=== PATIENT | male | born 1935 | race Caucasian/White ===

== ENCOUNTER 2018-11-19 11:22 | Emergency (ER) | payer MEDICARE, SELFPAY ==
[2018-11-19 11:23] VITALS: BP 129/67; PULSE 58; RESP 16; TEMP 36.6; O2SAT 97; BMI 27.1
--- NOTE | 2018-11-19 11:58 | EKG12_ITS ---
Test Reason : ABDOMINAL PAIN Blood Pressure : / mmHG Vent. Rate : 054 BPM Atrial Rate : 054 BPM P-R Int : 174 ms QRS Dur : 084 ms QT Int : 436 ms P-R-T Axes : -40 -02 047 degrees QTc Int : 413 ms Unusual P axis, possible ectopic atrial bradycardia Abnormal ECG Confirmed by FAITH BRICENO, HUDSON ([id number]), editor farm journal HERBERT HENSON ([id number]) on 11/23/2018 9:15:58 AM Referred By: RAMBO Confirmed By:HUDSON CUEVAS MD
[2018-11-19 12:53] VITALS: RESP 17; TEMP 36.9
[2018-11-19 13:10] LABS: Absolute Lymphocyte Count 1.62 X10^3/ul (0.83-4.51); Absolute Neutrophil Count 3.8 X10^3/uL (2.0-7.7); Basophil# 0.02 X10^3/uL; Basophil% 0.3 % (0-1); Eosinophil# 0.31 X10^3/uL; Eosinophils% 4.8 % (0-5); Hemoglobin 14.3 g/dl (13.0-16.5); Lymphocyte # 1.62 X10^3/ul (4.0); Lymphocyte % 25.2 % (19-41); Mean Corp Hgb Conc 33.3 g/gl (32-36); Mean Corpuscular Hgb 32.8 pg (27.0-32.0); Mean Corpuscular Volume 98.6 fL (80-94); Mean Platelet Vol. 10.4 fl (6.2-12.0); Monocyte# 0.71 X10^3/uL; Neutrophil # 3.76 X10^3/uL (2.7-7.7); Neutrophil % 58.4 % (47-70); Platelet Count 160 K/mm3 (150-450); RBC Distribution Width CV 15.4 % (11.6-14.6); RBC Distribution Width SD 54.4 fl (35.1-43.9); Red Blood Count 4.36 M/mm3 (4.6-6.2); White Blood Count 6.4 K/mm3 (4.4-11.0)
[2018-11-19 13:17] LABS: POSITIVE COUNT NO; POSITIVE DIFFERENTIAL NO; POSITIVE MORPHOLOGY NO
[2018-11-19 13:29] LABS: ALB/GLOB Ratio 1.2 RATIO (0.9-2.4); AST(SGOT) 19 U/L (15-37); Alanine Aminotransfer ALT/SGPT 23 U/L (16-61); Albumin, Serum 3.6 g/dL (3.2-5.0); Alkaline Phosphatase 91 U/L (45-117); Anion Gap 6 (5-15); BUN 29 mg/dL (7-18); BUN/Creat Ratio 20.9 RATIO (10-20); Calcium,Total 8.5 mg/dL (8.5-10.1); Chloride 111 mmol/L (98-107); Creatinine, Serum 1.39 mg/dL (0.70-1.30); EST Glomerular Filtration Rate 52 mL/min (>60); Est Glom Filt Rate - Afr Amer 63 mL/min (>60); Estimated Creatinine Clearance 39.64 ml/min; Globulin 3.1 g/dL (2.2-4.2); Glucose 94 mg/dL (74-106); Lipase 164 U/L (73-393); Potassium 4.5 mmol/L (3.5-5.1); Protein, Total 6.7 g/dL (6.4-8.2); Sodium Level 141 mmol/L (136-145)
--- NOTE | 2018-11-19 14:05 | ED.VIS.GEN ---
History of Present Illness Chief Complaint: Abd Pain Detail of Chief Complaint: Left upper quadrant Informant: Patient Onset: Yesterday Context: Sudden Onset Timing: Continuous Quality: Left upper quadrant pain with jags. Location: Left upper quadrant Current Severity: Mild Maximum Severity: Moderate Worsened by: Nothing Relieved by: Nothing Associated Symptoms: Nothing Narrative: Patient is an elderly male with history of diverticulitis is concerned this left upper quadrant pain represents diverticulitis. He denies food intolerance. He denies chest pain, dyspnea on exertion, diaphoresis, back pain or flank pain. He denies dysuria, frequency, urgency or hematuria. He reports never having pain like this or in this location. He denies constipation, black or maroon stool. Denies blood or mucus in the stool. He states his bowel movements have been normal for him. Prior similar symptoms: No Recent Illness/Hospitalization: No - Past Medical History (1) Diverticulitis large intestine Status: Resolved (2) Coronary artery disease Status: Chronic (3) Hyperlipidemia Status: Chronic Past Medical History - Allergies and Home Meds Allergies/Adverse Reactions: Allergies prednisone Allergy (Verified 11/19/18 11:25) Rash Primary Care Physician: Jack Schaffer MD [Primary Care Provider] - Prior records reviewed: Yes Surgical History: no surgical history, - - Stent placement Lives: Alone Smoking Status: Former smoker Alcohol: None - Family History Maternal Family History: Reports: No pertinent history Review of Systems General: Denies: Chills, Fever, Malaise, Sweats, Weight loss Eyes: Denies: Visual changes - bilaterally, Blurred Vision - bilaterally ENT: Denies: Bilateral ear pain, Rhinorrhea, Sore throat Cardiovascular: Denies: Chest pain, Palpitations, Heart racing Respiratory: Denies: Dyspnea, Cough, Sputum, Dyspnea on exertion, Orthopnea, Paroxysmal nocturnal dyspnea Gastrointestinal: Reports: Abdominal pain. Denies: Nausea, Vomiting, Diarrhea, Constipation, Melena, Hematochezia Genitourinary: Denies: Dysuria, Hematuria, Frequency Musculoskeletal: Denies: Myalgias, Arthralgias, Neck pain, Back pain, Extremity Pain Skin: Denies: Rash, Wounds Neurological: Denies: Headache, Weakness, Numbness Hematologic: Denies: Easy bruising Allergy: Denies: Uticaria Physical Exam Vital Signs/Narrative: Vital Signs Temp Pulse Resp BP Pulse Ox 11/19/18 12:53 98.4 F 17 11/19/18 11:23 98 F 58 L 16 129/67 H 97 Inital Vital Signs reviewed: Yes General: Well nourished, Well developed, No Acute Distress Head: Normocephalic, Atraumatic Eyes: Perrl, EOMI, Pale conjunctiva, Scleral icterus ENT: Moist mucous membranes - Is, No rhinorrhea, TM's clear Neck: Supple, Nontender, No lymphadenopathy, No JVD Cardiovascular: Regular rate, Regular rhythm, No murmurs, Normal S1, Normal S2 Respiratory: No distress - Is, CTA bilaterally, Chest nontender Abdomen: Soft, Nontender, Nondistended, Normal bowel sounds, No masses. Negative for: Hepatomegaly, Splenomegaly Rectal: Deferred Back: Nontender, Normal Inspection. Negative for: CVA tenderness Extremities: Nontender, No edema. Negative for: Calf Tenderness Skin: Normal color, No rash. Negative for: Cyanosis, Jaundice Neurological: Alert, Oriented x3, Cranial nerves II-XII grossly intact, Normal Strength, Normal Sensation, Normal Gait Psychological: Normal affect, Normal Mood Diagnostic/Tx/Re-eval Laboratory Results 11/19/18 11/19/18 12:58 12:58 WBC 6.4 RBC 4.36 L Hgb 14.3 Hct 43.0 MCV 98.6 H MCH 32.8 H MCHC 33.3 RDW 15.4 H RDW Differential 54.4 H Plt Count 160 MPV 10.4 Immature Gran % (Auto) 0.300 Neut % (Auto) 58.4 Lymph % (Auto) 25.2 Steele % (Auto) 11.0 H Eos % (Auto) 4.8 Baso % (Auto) 0.3 Absolute Neuts (auto) 3.8 Absolute Lymphs (auto) 1.62 Total Counted Not Reportable Sodium 141 Potassium 4.5 Chloride 111 H Carbon Dioxide 24.0 Anion Gap 6 BUN 29 H Creatinine 1.39 H Estim Creat Clear Calc 39.64 Est GFR (MDRD) Af Amer 63 Est GFR (MDRD) Non-Af 52 L BUN/Creatinine Ratio 20.9 H Glucose 94 Calcium 8.5 Total Bilirubin 0.40 AST 19 ALT 23 Alkaline Phosphatase 91 Troponin I < 0.015 Total Protein 6.7 Albumin 3.6 Globulin 3.1 Albumin/Globulin Ratio 1.2 Lipase 164 - Rhythm Strip Rhythm Strip: Sinus Rhythm Rate: 58 Ectopy: None - EKG Initial EKG Interpretation: Sinus Bradycardia - Ventricular rate is 54. AL interval, Q latter day, QT interval and axis are normal. There are no ischemic changes noted. - Medical Decision Making To evaluate patient's left upper quadrant pain hepatic lipase and CBC were obtained to evaluate for pancreatitis, and cardiac etiology. Chest x-ray was not obtained since he has no respiratory symptoms and auscultation is normal. Since pain is not reproducible or worsen with palpation/percussion or movement imaging was not obtained. With normal workup including EKG, troponin, CBC, lipase and hepatic plan is to discharge to home. Patient was informed the etiology of his abdominal pain is unknown. ED Disposition - Plan for ED Patient: Disposition: Home or Assisted Living Diagnosis: Acute LUQ pain, History of diverticulitis of colon, History of coronary artery disease Instructions: ED Abdominal Pain Unkn Cause Male Referrals: Jack Schaffer MD [Primary Care Provider] - 3-5 Days if not improving
[2018-11-19 14:30] VITALS: PULSE 55; RESP 17; TEMP 36.7; O2SAT 99
== END 2018-11-19 14:32 | disposition home or self-care (01) ==
PROVIDERS: Emergency Provider Emergency Medicine; Family Provider Family Medicine; PCP Family Medicine
DX: R10.12 Left upper quadrant pain (principal); K57.32 Diverticulitis of large intestine without perforation or abscess without bleeding; I25.10 Atherosclerotic heart disease of native coronary artery without angina pectoris; E78.5 Hyperlipidemia, unspecified; Z87.891 Personal history of nicotine dependence; Z79.82 Long term (current) use of aspirin; Z79.899 Other long term (current) drug therapy
CPT/HCPCS: 80053; 83690; 84484; 85025; 93005; 99283; A4216

== ENCOUNTER → 2020-02-10 | Outpatient (CLI) | payer MEDICARE, SELFPAY ==
[2020-02-10 10:54] LABS: Amylase 49 U/L (25-115); Lipase 132 U/L (73-393)
== END | disposition home or self-care (01) ==
LOC: LABSPEC 10:27
PROVIDERS: PCP Family Medicine; Referring Provider Family Medicine; Visit Provider Family Medicine
DX: R10.12 Left upper quadrant pain (principal); R10.13 Epigastric pain
CPT/HCPCS: 82150; 83690

== ENCOUNTER 2020-04-13 05:33 | Inpatient (IN) | payer MEDICARE, SELFPAY ==
[2020-04-13] VITALS (15 sets, daily range): BP systolic 117–143; BP diastolic 66–81; PULSE 71–161; RESP 16–28; TEMP 36.3–37.1; O2SAT 96–100; BMI 21.4; BMI 21.1
--- NOTE | 2020-04-13 05:37 | ED.RN ---
CALLED FOR EKG PER RN REQUEST, PULLED OLD EKGS FOR
[2020-04-13] MEDS: dilTIAZem 25 MG/5 ML Vial 20 MG IV BOLUS (05:51)
--- NOTE | 2020-04-13 05:51 | EKG12_ITS ---
Test Reason : SOB Blood Pressure : / mmHG Vent. Rate : 146 BPM Atrial Rate : 337 BPM P-R Int : 000 ms QRS Dur : 082 ms QT Int : 314 ms P-R-T Axes : 000 -15 069 degrees QTc Int : 489 ms Atrial flutter with variable A-V block ST depression, consider subendocardial injury Abnormal ECG Confirmed by FAITH BRICENO, HUDSON ([id number]), editor producer DOMONIQUE BASSETT ([id number]) on 04/17/2020 9:25:11 AM Referred By: TAWANDA Confirmed By:HUDSON CUEVAS MD
[2020-04-13] MEDS: 0.9% Normal Saline 1,000 ML 150 ML IV (05:54)
--- NOTE | 2020-04-13 05:55 | RAD_ITS ---
HISTORY: pt c/o sob,nausea. hx of lung cancer, weakness ADDITIONAL HISTORY: None provided. EXAMINATION/TECHNIQUE: XR Chest 1 View AP/PA Number of images including paperwork: 1 COMPARISON: 07/27/2014 FINDINGS: LUNGS AND PLEURA: Left basilar opacity with some volume loss. Left pleural thickening versus small loculated pleural effusion. CARDIAC SILHOUETTE: Mildly enlarged. MEDIASTINUM AND LAURA: Aortic calcification and tortuosity. UPPER ABDOMEN: Unremarkable. SKELETON AND SOFT TISSUES: Deformity and the left posterior seventh rib consistent with previous surgery. T11 compression deformity appears similar. Degenerative changes. OTHER DEVICES AND HARDWARE: None. RAD/Chest 1 View (Portable) IMPRESSION: Left basilar opacity, possibly pneumonia, aspiration pneumonia and/or atelectasis. Correlation with clinical findings and follow-up recommended. Left pleural fluid versus pleural thickening. at 0636 Reported and signed by: Vicki Edouard MD Electronically Signed: Vicki Edouard MD at 6:36 EDT Tel , Service support ,
[2020-04-13] MEDS: Ondansetron 4 MG/2 ML Vial IV (06:00)
[2020-04-13 06:07] LABS: Absolute Lymphocyte Count 0.84 X10^3/uL (0.83-4.51); Absolute Neutrophil Count 0.5 X10^3/uL (2.0-7.7); Eosinophil# 0.07 X10^3/uL; Eosinophils% 4.7 % (0-5); Hematocrit 33.3 % (40-54); Hemoglobin 10.7 g/dL (13.0-16.5); Lymphocyte # 0.84 X10^3/ul (4.0); Lymphocyte % 56.8 % (19-41); Mean Corp Hgb Conc 32.1 g/dL (32-36); Mean Corpuscular Hgb 27.2 pg (27.0-32.0); Mean Corpuscular Volume 84.7 fL (80-94); Mean Platelet Vol. 9.8 fl (6.2-12.0); Monocyte# 0.04 X10^3/uL; Monocyte% 2.7 % (0-10); NRBC Flagged by Analyzer 0 % (0-5); Neutrophil # 0.51 X10^3/uL (2.7-7.7); Neutrophil % 34.4 % (47-70); POSITIVE COUNT YES; POSITIVE DIFFERENTIAL YES; POSITIVE MORPHOLOGY YES; Platelet Count 100 K/mm3 (150-450); RBC Distribution Width CV 17.8 % (11.6-14.6); RBC Distribution Width SD 55.1 fl (35.1-43.9); Red Blood Count 3.93 M/mm3 (4.6-6.2)
[2020-04-13 06:21] LABS: Differential Indicated SCAN CRITERIA MET
[2020-04-13 06:22] LABS: White Blood Count 1.5 K/mm3 (4.4-11.0)
[2020-04-13 06:24] LABS: Anion Gap 8 (5-15); BUN 27 mg/dL (7-18); BUN/Creat Ratio 23.9 RATIO (10-20); Calcium,Total 8.9 mg/dL (8.5-10.1); Chloride 103 mmol/L (98-107); Creatinine, Serum 1.13 mg/dL (0.70-1.30); EST Glomerular Filtration Rate 66 mL/min (>60); Est Glom Filt Rate - Afr Amer 80 mL/min (>60); Estimated Creatinine Clearance 46.24 ml/min; Glucose 126 mg/dL (74-106); Potassium 3.1 mmol/L (3.5-5.1); Sodium Level 135 mmol/L (136-145)
[2020-04-13 06:40] LABS: D-Dimer Quantitative (DVT/PE) 7.92 FEU/ug/m (0.27-0.49)
--- NOTE | 2020-04-13 06:42 | CT_ITS ---
STUDY: CTA CHEST REASON FOR EXAM: Male, 84 years old. SOB, WEAKNESS RADIATION DOSAGE (If Supplied By Facility): CTDIvol = ( 12.50 ) mGy, DLP = ( 360.73 ) mGycm TECHNIQUE: The examination was performed with the intravenous administration of 100 C C ISOVUE 370. Post-processing of the angiographic images was performed, with multiplanar reformation and 3D reconstruction. Individualized dose optimization techniques were used for this CT. COMPARISON: Comparison is made with prior examination dated 07/27/2014. FINDINGS: Multiple intraluminal filling defects are seen in branches of the right lower lobe pulmonary artery as well as the right intermediate stem pulmonary artery. There is atherosclerotic calcification of the aortic arch with tortuosity. There is no demonstrated aortic dissection. There are calcifications of the coronary arteries. There are visualized mediastinal lymph nodes, which are within normal size limits, and with normal morphology. Normal hilar regions. Normal visualized trachea and bronchi. There is volume loss in the left hemithorax with a small left pleural effusion and irregular pleural thickening involving the lateral and medial aspects of the left pleural space. There is also evidence of bronchiectasis and infiltration/consolidation in the left lower lobe. Normal chest wall structures. There are degenerative changes of thoracic spine. Normal visualized upper abdomen. CT/CTA Chest W/WO Contrast IMPRESSION: Pulmonary emboli seen in the right interlobar pulmonary artery as well as in the right lower lobe pulmonary arterial branches. Small left pleural effusion with diffuse left pleural thickening and volume loss in the left hemithorax. Electronically Signed: Jabari Page, at 8:08 EDT , Service support ,
[2020-04-13 06:51] LABS: Differential Comment SCANNED
--- NOTE | 2020-04-13 06:56 | ED.DCSUM_ITS ---
- ER Visit Summary Date of Service: 04/13/20 Chief Complaint: [Shortness of breath] History of Present Illness: The patient is a 84 M [presents the emergency department complaint shortness of breath started around 5 AM. Patient complains of nausea for days ever since his chemotherapy 8 days ago. Patient being treated for lung cancer with Dr. Adam Cote. Patient also states that in January he had his left lung scrubbed by Dr. Colon. Patient does complain of some chest discomfort with deep breath. Patient states that he has been getting some IV fluids as an outpatient for dehydration. Patient has history of coronary artery disease, high cholesterol, lung cancer, and history of diverticulitis. Patient has cardiac stents. He denies any fever or cough. He denies any exposures to patients with COVID-19.] Physical Examination: [HEENT-PERRLA, EOMI. Cranial nerves II through XII grossly intact. TMs clear. Mucous membranes moist. No adenopathy. Cardiovascular-irregularly irregular and tachycardic with heart rates in the 140s. No murmurs auscultated. Lungs-diminished breath sounds in the left lower lobe with rhonchi and few rales noted. Mild tachypnea. No accessory muscle use or retractions. Abdomen-normoactive bowel sounds, soft, nontender, no rebound or rigidity, no peritoneal signs. Extremities-intact ?4, normal range of motion, normal pulses, atraumatic] Test Results: EKG obtained on arrival showed atrial fibrillation with rapid v entricular response and nonspecific ST changes. When compared with prior EKG from November 2018 these are new findings. CBC with differential obtained showed a white count of 1.5, hemoglobin 10.7, hematocrit 33, platelets 100. Chemistries showed a sodium 135, potassium 3.1, chloride 103, CO2 24, glucose 126, BUN 27 and creatinine 1.13. Troponin less than 0.015. D-dimer was elevated at over 7 [. CTA of the chest ordered and pending] Emergency Department Course and Treatment: [ Established. Patient was given Cardizem 20 mg IV bolus. Patient was given another bolus of 20 mg of Cardizem and started on a Cardizem drip. Patient was given normal saline.] Before the Cardizem drip was started patient converted to a sinus rhythm. At this point I do not feel the fluid on the left side is related to infectious etiology as he has had no cough or fever. Treatment Plan: [Patient will require admission for new onset A. fib RVR] Disposition: [Admit] Impression: [A. fib RVR-new onset Left pleural effusion Dyspnea Pancytopenia History of lung cancer] This note was generated with Kalion dictation software. It may contain incorrect words, spelling, and punctuation that were not noted in review of the chart prior to signing ED Disposition - Plan for ED Patient: Referrals: Jack Schaffer MD [Primary Care Provider] -
--- NOTE | 2020-04-13 07:16 | HP.PCM_ITS ---
Problem List (1) Cancer of left lung Status: Acute (2) Left pleural effusion Status: Acute (3) Atrial fibrillation with RVR Status: Acute (4) Acute respiratory insufficiency Status: Acute (5) Diverticulitis large intestine Status: Resolved (6) Vertigo Status: Chronic (7) Chest pain Status: Inactive (8) Hyperlipidemia Status: Chronic (9) Coronary artery disease Status: Chronic History of Present Illness Date of Admission: 04/13/20 Chief Complaint: Shortness of breath acute on chronic The patient is a 84 year old M with multiple comorbidities including recent diagnosis of left lung cancer after VATS pleural biopsy, adenocarcinoma in [facility] by Dr. Nelson in January 2020 came to ED with acute on chronic shortness of breath at 5 AM today. Patient is chronically short of breath on exertion and generalized weakness for since January 2020 but got worse in the last 1 week after chemotherapy. He had first chemo a week ago by oncologist Dr. Cote. He has nausea and dehydration and was hydrated 2 days ago. He denies fever or chills, cough or chest pain/pressure. In ED, triage vitals shows heart rate 161/min, respiratory rate 28 pulse ox 98% on room air and BP 143/81. He was found in A. fib with RVR which was converted with 20 mg IV Cardizem. Chest x-ray done in ER shows left basilar opacity. CTPA was done which shows left a small effusion with atelectasis and consolidation with air bronchogram. Left hemithorax scarring with volume loss consistent with left thoracotomy. Patient is admitted in PCU for further management Past Medical History Past Medical History (Chronic Problems): Chronic Problems Vertigo (Chronic) Hyperlipidemia (Chronic) Coronary artery disease (Chronic) Allergies prednisone Allergy (Verified 04/13/20 05:39) Rash Home Medications: Ambulatory Orders Medication Instructions Recorded Metoprolol Tartrate [Lopressor 50 mg PO BID 07/27/14 (beta latrell)] Simvastatin [Zocor] 40 mg PO QHS 07/27/14 Aspirin E.C. [Ecotrin] 81 mg PO DAILY@0800 #30 tablet 09/11/15 Cholecalciferol (Vitamin D3) 2,000 unit PO DAILY 09/11/15 [D3-2000] Gluc Brady/Chondro Brady A/Vit C/Mn 1 each PO DAILY 01/31/16 [Glucosamine 1,500 Complex Cp] Pioglitazone [Actos] 30 mg PO DAILY 01/31/16 Surgical History: no surgical history, - - Stent placement Smoking Status: Former smoker - *Family History Maternal History Items: No pertinent history Review of Systems Constitutional: Reports: Malaise, Weakness, Weight Change - Loss of weight about 40 pounds in last 16 months, more severe in the last 2 months, Fatigue. Denies: Chills, Fever HEENT: Reports: Difficulty Hearing. Denies: Head Aches, Sinus Congestion, Sinus Drainage Cardiovascular: Denies: Chest Pain, Chest Pressure, Chest Tightness, Edema, Palpitations Respiratory: Denies: Cough, Shortness of breath at rest, Sputum production Gastrointestinal: Reports: Nausea, Vomiting. Denies: Abdominal Pain, Constipation, Diarrhea, Hematemesis, Hematochezia, Melena Genitourinary: Denies: Dysuria, Frequency, Hesitancy, Retention Musculoskeletal: Reports: Joint Pain. Denies: Joint Tenderness Skin: Denies: Rash, Wounds Neurological: Reports: Balance problems. Denies: Focal weakness, Numbness, Tingling Psychiatric: Denies: Anxiety, Depression, Homicidal Ideations, Suicidal Ideations Hematologic/ Lymphatic: Denies: Easy Bruising, Easy Bleeding VTE Information - Inpt Only VTE Present on Admission: No VTE Mechan Device Prophylaxis: SCD's VTE Pharm Prophylaxis ordered?: No Reason prophylaxis not ordered:: Medical Contraindication - Pancytopenia Patient Problems: Active and Suspected Problems Cancer of left lung (Acute) Left pleural effusion (Acute) Atrial fibrillation with RVR (Acute) Acute respiratory insufficiency (Acute) - Physical Exam Vitals/I&O's: Vital Signs Temp Pulse Resp BP Pulse Ox 97.8 F 109 H 28 H 143/81 H 98 04/13/20 05:34 04/13/20 05:34 04/13/20 05:34 04/13/20 05:34 04/13/20 05:34 Oxygen Delivery Method Room Air Weight: 145 lb 8.081 oz Body Mass Index (BMI) 21.4 Finger Stick Blood Glucose 121 General: Alert, Oriented x3, Cooperative HEENT: Atraumatic, PERRLA, EOMI, Normocephalic Oral: No Gingival or Mucosal Lesions/ Ulcerations, Dry Mucosa Neck: Supple, No JVD, Negative Carotid Bruits Lungs: No rhonchi, No wheeze, No rales, Diminished - Air entry severely dimini shed on left lung, more posterior half, Short of Breath, - - Surgical scar present over left posterior lateral region. Asymmetric, decreased expansion of left hemithorax with scarring.. Cardiovascular: Regular rate, Regular Rhythm, Normal S1, Normal S2, Murmur - Systolic murmur present over left lower sternal border and aortic region, - - Converted to sinus rhythm Abdomen: Bowel Sounds Present, Soft, Non Tender, Non-Distended Extremities: No edema, Capillary Refill Less than 3 Seconds, Edema Skin: No rashes, No breakdown Musculoskeletal: No Tenderness to Palpation of Joints or Extremities, Arthritic Changes, Muscle Wasting Neurological: Cranial nerves II-XII grossly intact, Deep Tendon Reflexes 2+/4 and Symmetrical, Neuro grossly intact Psych/Mental Status: Normal Affect, Appropriate Laboratory Results 04/13/20 05:45: WBC 1.5 L, RBC 3.93 L, Hgb 10.7 L, Hct 33.3 L, MCV 84.7, MCH 27.2, MCHC 32.1, RDW Std Deviation 55.1 H, RDW Coeff of Sinan 17.8 H, Plt Count 100 L, MPV 9.8, Immature Gran % (Auto) 1.400 H, Neut % (Auto) 34.4 L, Lymph % (Auto) 56.8 H, Durham % (Auto) 2.7, Eos % (Auto) 4.7, Baso % (Auto) 0.0, Absolute Neuts (auto) 0.5 L, Absolute Lymphs (auto) 0.84, Nucleated RBC % 0, Differential Comment SCANNED 04/13/20 05:45: Sodium 135 L, Potassium 3.1 L, Chloride 103, Carbon Dioxide 24.0, Anion Gap 8, BUN 27 H, Creatinine 1.13, Estim Creat Clear Calc 46.24, Est GFR (MDRD) Af Amer 80, Est GFR (MDRD) Non-Af 66, BUN/Creatinine Ratio 23.9 H, Glucose 126 H, Calcium 8.9, Troponin I < 0.015 04/13/20 05:45: B-Natriuretic Peptide Pending 04/13/20 05:45: D-Dimer Quant (PE/DVT) 7.92 H* 04/13/20 06:05: COVID-19 (JOSÉ) Pending Current Medications Sodium Chloride () 1,000 mls @ 150 mls/hr IV .Q6H40M [facility] Last Admin: 04/13/20 05:54 Dose: 150 mls/hr Documented by: Diltiazem HCl 125 mg/ Dextrose 125 mls @ 5 mls/hr IV .Q25H [facility]; Protocol Assessment/Plan All Active Problems Diverticulitis large intestine (Resolved) Cancer of left lung (Acute) Left pleural effusion (Acute) Atrial fibrillation with RVR (Acute) Acute respiratory insufficiency (Acute) The patient is a 84 year old M with multiple comorbidities including recent diagnosis of left lung cancer after VATS/thoracotomy pleural biopsy, adenocarcinoma in [facility] by Dr. Nelson in January 2020 came to ED with acute on chronic shortness of breath and found to be in A. fib with RVR. Overall clinical assessment was consistent with acute respiratory insufficiency secondary to left lower atelectasis, effusion and possible pneumonia along with A. fib with RVR 1. Acute respiratory insufficiency secondary to left lower opacity probably secondary to effusion, atelectasis and pneumonia: Patient is being admitted in PCU. COVID PCR is negative. Pneumonia work-up including blood cultures x2, sputum culture, respiratory panel and MRSA nasal screen. Start empirically on IV antibiotic Zosyn as there is risk healthcare associated pneumonia with recent chemotherapy and pancytopenia. Pulmonary consult. Discussed with staff nurse anesthetist. Chest x-ray and CTPA independently reviewed shows left a small pleural effusion with atelectasis and consolidation with air bronchograms. Left lung volume loss with scarring. Lactic acid, CRP and LFT ordered. 2. Left lung cancer after VATS pleural biopsy, thoracotomy: Discussed with Dr. Adam Cote. Patient had VATS pleural biopsy came out to be adenocarcinoma and [facility] by Dr. Nelson. Details not available. Oncology consult. Try to get medical record from [facility]. 3. Pancytopenia: WBC count 1.5 thousand, ANC 500, H&H 10.7/33 and platelet count 100,000. Antiplatelet/anticoagulant contraindicated. D-dimer high 7.92. Neupogen ordered. Monitor CBC daily. 4. Coronary artery disease status post stents A. fib with RVR: Converted to normal sinus rhythm after 20 mg IV Cardizem. Serial troponin enzymes. 2D echo ordered. Patient has history of coronary artery disease and 2 stents in early 1999. Denies any recent SD or chest pain at rest or exertion. 5. Other comorbidities include dyslipidemia, diverticulitis of large intestine, chronic vertigo: Home medication reconciliation done. Living will/advanced directive/end of life care: Patient does have living will and advanced directive. Her elder daughter Anna is power of employee benefits attorney for health. I discussed with younger sister Anna lacy. After discussion of procedures involved with full code, DNR CC arrest and DNR CC, the patient and her daughter opted for full code in case of terminal/emergency condition or cardiac arrest. Patient does want artificial life support including intubation, tube feed, ventilator and/chest compression, central venous catheter, vasopressor and DC shock if needed for short length of time Full code. Total time spent in [id number] encounter in discussion of advanced directive 16 minutes Inpatient E&M: 44269 Init Hosp L3 Procedures: 60508 Advncd Care Plan 30 Min
--- NOTE | 2020-04-13 07:45 | ED.RN ---
PT CONVERTED TO SINUS RHYTHM, CARDIZEM HELD PER REQUEST FROM DR. RUTHERFORD.
--- NOTE | 2020-04-13 07:51 | ED.RN ---
[facility]ARM[facility] TO SEND LIQUID POTASSIUM TO THE FLOOR.
--- NOTE | 2020-04-13 08:40 | ECHOD_ITS ---
Reason For Study: SOB Procedure This was a 2D Doppler, Color Flow transthoracic echocardiogram. The study was technically difficult. Exam performed portable in patient room. Left Ventricle Normal LV size. The estimated ejection fraction is 70 %. No evidence for diastolic dysfunction. No regional wall motion abnormalities noted. Right Ventricle Normal RV size. Normal systolic function. Atria Normal left atrium. Normal right atrium. No doppler evidence for ASD. Mitral Valve Bileaflet diffuse mitral valve thickening. There is no mitral valve stenosis. No mitral valve insufficiency. Tricuspid Valve There is no tricuspid stenosis. Trivial tricuspid valve insufficiency. Pulmonary artery systolic pressure is 55 mmHg. Aortic Valve Trisinus/trileaflet aortic valve. Aortic sclerosis, no stenosis. There is no aortic stenosis. No aortic valve insufficiency. Pulmonic Valve There is no pulmonic valvular stenosis. No pulmonic valve insufficiency. Great Vessels Normal aortic root. Pericardium/Pleural No pericardial effusion. Medication Definity deferred due to increased PAP. MMode/2D Measurements & Calculations LVIDd: 3.5 cm IVSd: 1.1 cm LVOT diam: 2.0 cm LVIDs: 2.2 cm LVPWd: 1.1 cm RVDd: 3.3 cm FS: 37.0 % LVOT area: 3.3 cm2 Ao root diam: 3.2 cm LAV(MOD-bp): 46.3 ml LA A4 area: 18.4 cm2 LAV(MOD-bp) Indexed: 25.9 ml/m2 LAV(MOD-sp2): 40.6 ml LAV(MOD-sp4): 52.7 ml LA dimension(2D): 2.9 cm RA A4 area: 15.3 cm2 Time Measurements MV dec time: 0.33 sec Doppler Measurements & Calculations MV E max thaddeus: 63.9 cm/sec Lat Peak E' Thaddeus: 5.4 cm/sec Med Peak E' Thaddeus: 4.1 cm/sec MV A max thaddeus: 85.9 cm/sec E/E' lat: 11.9 E/E' med: 15.6 MV E/A: 0.74 Ao V2 max: 239.7 cm/sec LV V1 max: 148.5 cm/sec SV(LVOT): 100.1 ml Ao max P.0 mmHg LV V1 max P.8 mmHg Ao V2 mean: 164.7 cm/sec LV V1 mean P.3 mmHg Ao mean P.1 mmHg LV V1 mean: 96.4 cm/sec Ao V2 VTI: 39.4 cm LV V1 VTI: 30.4 cm CIELO(I,D): 2.5 cm2 CIELO(V,D): 2.0 cm2 PA V2 max: 162.3 cm/sec TR max thaddeus: 345.5 cm/sec TR max P.7 mmHg Interpretation Summary No evidence for diastolic dysfunction. The estimated ejection fraction is 70 %. Pulmonary artery systolic pressure is 55 mmHg. Aortic sclerosis, no stenosis. Ordering Physician: Ryan Laurent Referring Physician: SHWETA SEARS Performed By: Stephanie Sam RDCS
--- NOTE | 2020-04-13 08:47 | PCM.CONS.PUL ---
Reason for Consult Date of Consultation: 04/13/20 Reason for Consultation: Respiratory distress, left pleural effusion, lung cancer History of Present Illness: The patient is an 84-year-old male, with a history as outlined below, who presented to the emergency department on April 13 with complaints of shortness of breath. The patient has a medical history significant for hypertension, AAA, stage III chronic kidney disease and peripheral vascular disease. In September [address] the patient underwent a CT chest which revealed a moderate-sized left-sided pleural effusion along with mild emphysema and diffuse bronchiectasis. The patient subsequently underwent a thoracentesis and ultimately required a left VATS with left posterior thoracotomy along with evacuation of a loculated pleural effusion and total decortication on January 31, 2020. 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 The patient has a very limited smoking history. His disease appears to be limited to the pleura and possibly mediastinal nodes, based upon his past PET scan. He is currently being followed by Dr. Cote of [facility] oncology. On presentation to the emergency department, the patient was noted to be afebrile, but was tachycardic and tachypneic. Laboratory evaluation revealed evidence of pancytopenia with a platelet count of 100,000. D-dimer was elevated to 7.92. Chemistry profile was notable for a potassium of 3.1. Troponin was negative. Coronavirus PCR was negative. CTA chest revealed multiple right-sided pulmonary emboli along with a small left pleural effusion with irregular pleural thickening and bronchiectasis with possible infiltration in the left lower lobe. The patient was subsequently placed on antimicrobial therapy and admitted to the progressive care unit for further management. Past Medical History Past Medical History (Chronic Problems): Chronic Problems Vertigo (Chronic) Hyperlipidemia (Chronic) Coronary artery disease (Chronic) Allergies prednisone Allergy (Verified 04/13/20 05:39) Rash Home Medications: Ambulatory Orders Medication Instructions Recorded Metoprolol Tartrate [Lopressor 50 mg PO BID 07/27/14 (beta latrell)] Simvastatin [Zocor] 40 mg PO QHS 07/27/14 Aspirin E.C. [Ecotrin] 81 mg PO DAILY@0800 #30 tablet 09/11/15 Cholecalciferol (Vitamin D3) 2,000 unit PO DAILY 09/11/15 [D3-2000] Gluc Brady/Chondro Brady A/Vit C/Mn 1 each PO DAILY 01/31/16 [Glucosamine 1,500 Complex Cp] Pioglitazone [Actos] 30 mg PO DAILY 01/31/16 Surgical History: no surgical history, - - Stent placement Smoking Status: Former smoker Tobacco Use: Non-smoker - *Family History Maternal History Items: No pertinent history Review of Systems Constitutional: Denies: Chills, Fever Eyes: Denies: Blurred vision, Double vision HEENT: Reports: Difficulty Hearing Cardiovascular: Denies: Chest Pain, Palpitations Respiratory: Reports: Shortness of Breath Gastrointestinal: Reports: Nausea. Denies: Abdominal Pain Genitourinary: Denies: Dysuria Musculoskeletal: Denies: Joint Pain, Joint Tenderness Skin: Denies: Rash, Wounds Psychiatric: Denies: Anxiety, Depression, Homicidal Ideations, Suicidal Ideations Hematologic/ Lymphatic: Reports: Anemia Patient Problems: Active and Suspected Problems Cancer of left lung (Acute) Left pleural effusion (Acute) Atrial fibrillation with RVR (Acute) Acute respiratory insufficiency (Acute) Objective: The patient's most recent lab work, culture data and imaging studies have all been personally reviewed. Blood cultures are pending. - Physical Exam Vitals/I&O's: Vital Signs Temp Pulse Resp BP Pulse Ox 98.2 F 83 18 117/66 100 04/13/20 08:08 04/13/20 08:08 04/13/20 08:08 04/13/20 08:08 04/13/20 08:08 Oxygen Flow Rate (L/min) 2 Oxygen Delivery Method Nasal Cannula Weight: 143 lb 1.28 oz Body Mass Index (BMI) 21.1 Finger Stick Blood Glucose 121 General: Alert, Cooperative, No apparent distress HEENT: Atraumatic, Normocephalic, - - Extremely hard of hearing Oral: No Gingival or Mucosal Lesions/ Ulcerations Neck: Supple, No Nodes, Trachea Midline Lungs: Diminished Cardiovascular: Regular rate, Normal S1, Normal S2, Murmur Abdomen: Bowel Sounds Present, Soft, Non Tender Extremities: No clubbing, No cyanosis Skin: No breakdown Musculoskeletal: No Tenderness to Palpation of Joints or Extremities Lymphatic: No Cervical, Supraclavicular, or Inguinal Adenopathy Neurological: Cranial nerves II-XII grossly intact, Neuro grossly intact Psych/Mental Status: Normal Affect, Appropriate Labs (Last 48 Hours) 04/13/20 04/13/20 04/13/20 05:45 05:45 05:45 WBC 1.5 L RBC 3.93 L Hgb 10.7 L Hct 33.3 L MCV 84.7 MCH 27.2 MCHC 32.1 RDW Std Deviation 55.1 H RDW Coeff of Sinan 17.8 H Plt Count 100 L MPV 9.8 Immature Gran % (Auto) 1.400 H Neut % (Auto) 34.4 L Lymph % (Auto) 56.8 H [place] % (Auto) 2.7 Eos % (Auto) 4.7 Baso % (Auto) 0.0 Absolute Neuts (auto) 0.5 L Absolute Lymphs (auto) 0.84 Nucleated RBC % 0 Differential Comment SCANNED D-Dimer Quant (PE/DVT) Sodium 135 L Potassium 3.1 L Chloride 103 Carbon Dioxide 24.0 Anion Gap 8 BUN 27 H Creatinine 1.13 Estim Creat Clear Calc 46.24 Est GFR (MDRD) Af Amer 80 Est GFR (MDRD) Non-Af 66 BUN/Creatinine Ratio 23.9 H Glucose 126 H Calcium 8.9 Troponin I < 0.015 B-Natriuretic Peptide Pending COVID-19 (JOSÉ) 04/13/20 04/13/20 05:45 06:05 WBC RBC Hgb Hct MCV MCH MCHC RDW Std Deviation RDW Coeff of Sinan Plt Count MPV Immature Gran % (Auto) Neut % (Auto) Lymph % (Auto) [place] % (Auto) Eos % (Auto) Baso % (Auto) Absolute Neuts (auto) Absolute Lymphs (auto) Nucleated RBC % Differential Comment D-Dimer Quant (PE/DVT) 7.92 H* Sodium Potassium Chloride Carbon Dioxide Anion Gap BUN Creatinine Estim Creat Clear Calc Est GFR (MDRD) Af Amer Est GFR (MDRD) Non-Af BUN/Creatinine Ratio Glucose Calcium Troponin I B-Natriuretic Peptide COVID-19 (JOSÉ) Negative Clinical Impression(s) from Imaging Studies Chest X-Ray 04/13/20 05:55 IMPRESSION: Left basilar opacity, possibly pneumonia, aspiration pneumonia and/or atelectasis. Correlation with clinical findings and follow-up recommended. Left pleural fluid versus pleural thickening. at 0636 Reported and signed by: Vicki Edouard MD Electronically Signed: Vicki Edouard MD at 6:36 EDT Tel , Service support , Chest CTA 04/13/20 06:42 IMPRESSION: Pulmonary emboli seen in the right interlobar pulmonary artery as well as in the right lower lobe pulmonary arterial branches. Small left pleural effusion with diffuse left pleural thickening and volume loss in the left hemithorax. Electronically Signed: Jabari Kaylee, at 8:08 EDT , Service support , Current Medications Acetaminophen (Tylenol) 650 mg PO Q6H PRN PRN PRN Reason: Pain Score 1-10/Temp > 100.7 F Al Hydroxide/Mg Hydroxide (Mylanta Ii) 30 ml PO Q6H PRN PRN PRN Reason: Gastric Burning Albuterol Sulfate (Ventolin Aerosols) 2.5 mg INHALATION Q2H PRN PRN PRN Reason: SOB/Wheezing Albuterol/Ipratropium (Duoneb) 3 ml INHALATION Q6H.RT CLAUDIA Dextrose (D50w Syringe) 0 gm IV X1 PRN; Protocol PRN Reason: Hypoglycemia Glucagon () 1 mg IM .X1 PRN PRN Reason: Hypoglycemia Guaifenesin (Mucinex) 1,200 mg PO BID CLAUDIA Sodium Chloride () 1,000 mls @ 50 mls/hr IV .Q20H CLAUDIA Ceftriaxone Sodium 2 gm/ (Sodium Chloride) 50 mls @ 100 mls/hr IV Q24 CLAUDIA Stop: 04/20/20 10:01 Morphine Sulfate () 2 mg IV Q3H PRN PRN PRN Reason: Pain Score 6-10/10 Nitroglycerin (Nitrostat) 0.4 mg SUBLINGUAL Q5M PRN PRN Reason: CARDIAC/CHEST PAIN Nutritional Formula (Lactose Free) (Ensure Enlive) 120 ml PO 4X/DAY CLAUDIA Ondansetron HCl (Zofran) 4 mg IV Q6H PRN PRN PRN Reason: NAUSEA/VOMITING Oxycodone HCl (Oxyir) 5 mg PO Q4H PRN PRN PRN Reason: Pain Score 4-5/10 Promethazine HCl (Phenergan) 12.5 mg IV Q6H PRN PRN PRN Reason: Breakthrough Nausea/Vomiting Senna/Docusate Sodium (Senokot-S, Kylie-Colace) 2 tablet PO BID PRN PRN PRN Reason: Constipation Sodium Chloride () 10 - 40 ml IV UD PRN PRN Reason: SALINE FLUSH Assessment/Plan All Active Problems Diverticulitis large intestine (Resolved) Cancer of left lung (Acute) Left pleural effusion (Acute) Atrial fibrillation with RVR (Acute) Acute respiratory insufficiency (Acute) RECOMMENDATIONS: 1. Start systemic anticoagulation, given PE identified on CTA chest. 2. Continue supplemental oxygen with plans to wean to maintain saturations at or above 90%. 3. Electrolyte repletion. 4. Continue empiric antimicrobials. 5. Continue Granix. IMPRESSIONS: 1. Acute hypoxemic respiratory insufficiency/shortness of breath secondary to pulmonary emboli and possible pneumonia The patient presented to the hospital with shortness of breath with radiographic evidence of multiple right-sided pulmonary emboli. He also has a questionable infiltrate in the left lung base. Given the patient's pancytopenia, it is reasonable to continue empiric antimicrobials. Plan to wean supplemental oxygen as tolerated to maintain saturations at or above 90%. Start patient on systemic anticoagulation. I do not see an indication at the current time to proceed with ultrasound-guided thoracentesis. 2. Pancytopenia Likely secondary to chemotherapy. Continue to monitor daily. Platelet count is stable. 3. Hypokalemia Electrolyte repletion as ordered. Recheck levels in the morning. 4. Primary lung cancer/hypertension/hyperlipidemia/diabetes mellitus/transient atrial fibrillation Complicates care, management, recovery and prognosis. Continue home medications were indicated. Although the patient presented in atrial fibrillation, he subsequently chemically converted after receiving Cardizem. This note was generated with [employer] dictation software. It may contain incorrect words, spelling, and punctuation that were not noted in checking the note before signing. Inpatient E&M: 06706 Init Hosp L3
[2020-04-13 08:57] LABS: BNP,B-Type NATRIURETIC PEPTIDE 102.8 pg/mL (0-100)
[2020-04-13] MEDS: 0.9% Normal Saline 1,000 ML 50 ML IV (09:14)
[2020-04-13] MEDS: guaiFENesin 1,200 MG Tablet 1200 MG PO ×2 (09:29→21:05)
[2020-04-13] MEDS: TBO-FILGRASTIM 300 MCG/0.5 ML ML SC (09:29)
[2020-04-13 09:34] LABS: AST(SGOT) 18 U/L (15-37); Alanine Aminotransfer ALT/SGPT 23 U/L (16-61); Albumin, Serum 2.4 g/dL (3.2-5.0); Alkaline Phosphatase 87 U/L (45-117); Bilirubin, Direct 0.32 mg/dL (0.00-0.30); Globulin 4.6 g/dL (2.2-4.2)
[2020-04-13 09:35] LABS: Lactic Acid 1.5 mmol/L (0.4-1.9)
--- NOTE | 2020-04-13 10:10 | CASEMGMT ---
ERIBERTO DRAPER Face to Face with patient for initial transition planning/care coordination assessment. RN CM introduced self and role at [facility]. Patient lying in bed, alert and oriented, [facility]. Patient willing to participate in assessment and is able to answer all questions appropriately. Care providers, pharmacy, and demographics verified. Patient wishes to discharge home, not sure of needs at this time, will monitor therapy. Patient states he has no further needs or concerns at this time. CM to follow for discharge planning needs that may arise. PCP: Karime Specialists: Kera, oncology Preferred Pharmacy: [facility] Insurance: [facility] Prescription Benefit: yes Living Will/HPOA: daughterAnna LNOK: daughters Living Arrangements: Patient lives alone in 1 story home with 3 steps and railing to enter the home. Patient states he is independent at home. Transportation: self/daughter DME/HHC: Patient states he has shower chair, raised toilet, cane, grab bars, and walker at home. Will monitor for need for home oxygen. Patient prefers [employer]. Disposition Plan: Patient to discharge home with family support and follow-up plans in place. Mary PATEL, RN, CM
[2020-04-13] MEDS: Enoxaparin 60 MG/0.6 ML Syringe SC ×2 (11:55→17:06)
[2020-04-13 11:59] LABS: M R Staph aureus DNA By PCR Negative (Negative); Probe Check PASS; Specimen Processing Control PASS
[2020-04-13] MEDS: Ipratropium/Albuterol Sulfate 3 ML AMPUL.NEB INHALATION ×2 (13:29→20:31)
[2020-04-13 13:33] LABS: Pathologist Review Reviewed
[2020-04-13] MEDS: Metoprolol Tartrate 50 MG Tablet PO ×2 (17:06→21:05)
[2020-04-13] MEDS: Atorvastatin Calcium 20 MG Tablet PO (21:05)
[2020-04-14] VITALS (14 sets, daily range): BP systolic 119–136; BP diastolic 45–77; PULSE 69–82; RESP 14–20; TEMP 36.1–36.8; O2SAT 94–99
[2020-04-14] MEDS: Enoxaparin 60 MG/0.6 ML Syringe SC (05:38)
[2020-04-14] MEDS: Ondansetron 4 MG/2 ML Vial IV (05:47)
[2020-04-14] MEDS: 0.9% Saline Lock 10 ML Syringe IV ×2 (05:48→09:14)
[2020-04-14 06:21] LABS: Absolute Lymphocyte Count 0.65 X10^3/uL (0.83-4.51); Absolute Neutrophil Count 0.4 X10^3/uL (2.0-7.7); Basophil# 0.01 X10^3/uL; Basophil% 0.9 % (0-1); Eosinophil# 0.03 X10^3/uL; Eosinophils% 2.6 % (0-5); Hematocrit 27.7 % (40-54); Hemoglobin 8.7 g/dL (13.0-16.5); Lymphocyte # 0.65 X10^3/ul (4.0); Lymphocyte % 55.6 % (19-41); Mean Corp Hgb Conc 31.4 g/dL (32-36); Mean Corpuscular Hgb 26.9 pg (27.0-32.0); Mean Corpuscular Volume 85.8 fL (80-94); Mean Platelet Vol. 9.6 fl (6.2-12.0); Monocyte# 0.07 X10^3/uL; NRBC Flagged by Analyzer 0 % (0-5); Neutrophil # 0.39 X10^3/uL (2.7-7.7); Neutrophil % 33.2 % (47-70); POSITIVE COUNT YES; POSITIVE DIFFERENTIAL YES; POSITIVE MORPHOLOGY YES; Platelet Count 59 K/mm3 (150-450); RBC Distribution Width CV 18.2 % (11.6-14.6); RBC Distribution Width SD 56.9 fl (35.1-43.9); Red Blood Count 3.23 M/mm3 (4.6-6.2)
[2020-04-14 06:24] LABS: White Blood Count 1.2 K/mm3 (4.4-11.0)
[2020-04-14 06:25] LABS: Differential Indicated SCAN CRITERIA MET
[2020-04-14 06:52] LABS: Anion Gap 6 (5-15); BUN 23 mg/dL (7-18); BUN/Creat Ratio 23.7 RATIO (10-20); Chloride 108 mmol/L (98-107); Creatinine, Serum 0.97 mg/dL (0.70-1.30); Differential Comment SCANNED; EST Glomerular Filtration Rate 79 mL/min (>60); Est Glom Filt Rate - Afr Amer 95 mL/min (>60); Estimated Creatinine Clearance 52.97 ml/min; Glucose 90 mg/dL (74-106); Potassium 2.9 mmol/L (3.5-5.1); Sodium Level 137 mmol/L (136-145); Thyroid Stim Hormone (TSH) 0.59 uIU/mL (0.358-3.74)
[2020-04-14] MEDS: Ipratropium/Albuterol Sulfate 3 ML AMPUL.NEB INHALATION ×2 (07:24→18:58)
--- NOTE | 2020-04-14 08:12 | PCM.PN.PUL ---
Patient Problems: Active and Suspected Problems Cancer of left lung (Acute) Left pleural effusion (Acute) Atrial fibrillation with RVR (Acute) Acute respiratory insufficiency (Acute) Subjective: The patient was seen and examined at the bedside this morning. Events from the last 24 hours have been reviewed. The patient is currently afebrile, hemodynamically stable and maintaining appropriate oxygen saturations on room air. The patient denies the presence of shortness of breath at the current time. Although the patient remains pancytopenic, his platelet count did drop to 59,000 this morning. The patient was subsequently transitioned to a continuous heparin infusion. Potassium was also low this morning at 2.9. Objective: The patient's most recent lab work, culture data and imaging studies have all been personally reviewed. Surface echocardiogram revealed normal LV size with an ejection fraction of 70%. Pulmonary artery systolic pressure was estimated to be 55 mmHg. Infectious work-up has been unrevealing to date. - Physical Exam Vitals/I&O's: Vital Signs Temp Pulse Resp BP Pulse Ox 97.8 F 76 18 126/69 H 97 04/14/20 05:41 04/14/20 07:24 04/14/20 07:24 04/14/20 05:41 04/14/20 07:24 Oxygen Flow Rate (L/min) 2 Oxygen Delivery Method Room Air Weight: 143 lb 1.28 oz Body Mass Index (BMI) 21.1 Finger Stick Blood Glucose 121 Intake and Output for Last 24 Hours 04/12/20 04/13/20 04/14/20 23:59 23:59 23:59 Intake Total 2228.54 / 2228.54 13.96 / 13.96 Output Total 450 / 450 Balance 1778.54 / 1778.54 13.96 / 13.96 General: Alert, Oriented x3, Cooperative, - - Sitting in bedside recliner. Hard of hearing. HEENT: Atraumatic, Normocephalic Oral: No Gingival or Mucosal Lesions/ Ulcerations Neck: Supple, No Nodes, Trachea Midline Lungs: Diminished Cardiovascular: Regular rate, Normal S1, Normal S2, Murmur Abdomen: Bowel Sounds Present, Soft, Non Tender Extremities: No clubbing, No cyanosis, No edema Skin: No breakdown Musculoskeletal: No Tenderness to Palpation of Joints or Extremities Lymphatic: No Cervical, Supraclavicular, or Inguinal Adenopathy Neurological: Cranial nerves II-XII grossly intact, Neuro grossly intact Psych/Mental Status: Normal Affect, Appropriate Labs (Last 48 Hours) 04/13/20 04/13/20 04/13/20 05:45 05:45 05:45 WBC 1.5 L RBC 3.93 L Hgb 10.7 L Hct 33.3 L MCV 84.7 MCH 27.2 MCHC 32.1 RDW Std Deviation 55.1 H RDW Coeff of Sinan 17.8 H Plt Count 100 L MPV 9.8 Immature Gran % (Auto) 1.400 H Neut % (Auto) 34.4 L Lymph % (Auto) 56.8 H [place] % (Auto) 2.7 Eos % (Auto) 4.7 Baso % (Auto) 0.0 Absolute Neuts (auto) 0.5 L Absolute Lymphs (auto) 0.84 Nucleated RBC % 0 Differential Comment SCANNED Diff Path Review Reviewed D-Dimer Quant (PE/DVT) Sodium 135 L Potassium 3.1 L Chloride 103 Carbon Dioxide 24.0 Anion Gap 8 BUN 27 H Creatinine 1.13 Estim Creat Clear Calc 46.24 Est GFR (MDRD) Af Amer 80 Est GFR (MDRD) Non-Af 66 BUN/Creatinine Ratio 23.9 H Glucose 126 H Lactic Acid Calcium 8.9 Magnesium Total Bilirubin Direct Bilirubin AST ALT Alkaline Phosphatase Troponin I < 0.015 C-React Prot Ext Range B-Natriuretic Peptide 102.8 H Total Protein Albumin Globulin TSH COVID-19 (JOSÉ) MRSA (PCR) 04/13/20 04/13/20 04/13/20 05:45 06:05 08:48 WBC RBC Hgb Hct MCV MCH MCHC RDW Std Deviation RDW Coeff of Sinan Plt Count MPV Immature Gran % (Auto) Neut % (Auto) Lymph % (Auto) [place] % (Auto) Eos % (Auto) Baso % (Auto) Absolute Neuts (auto) Absolute Lymphs (auto) Nucleated RBC % Differential Comment Diff Path Review D-Dimer Quant (PE/DVT) 7.92 H* Sodium Potassium Chloride Carbon Dioxide Anion Gap BUN Creatinine Estim Creat Clear Calc Est GFR (MDRD) Af Amer Est GFR (MDRD) Non-Af BUN/Creatinine Ratio Glucose Lactic Acid Calcium Magnesium Total Bilirubin Direct Bilirubin AST ALT Alkaline Phosphatase Troponin I C-React Prot Ext Range B-Natriuretic Peptide Total Protein Albumin Globulin TSH COVID-19 (JOSÉ) Negative MRSA (PCR) Negative 04/13/20 04/13/20 04/13/20 08:52 08:52 08:52 WBC RBC Hgb Hct MCV MCH MCHC RDW Std Deviation RDW Coeff of Sinan Plt Count MPV Immature Gran % (Auto) Neut % (Auto) Lymph % (Auto) [place] % (Auto) Eos % (Auto) Baso % (Auto) Absolute Neuts (auto) Absolute Lymphs (auto) Nucleated RBC % Differential Comment Diff Path Review D-Dimer Quant (PE/DVT) Sodium Potassium Chloride Carbon Dioxide Anion Gap BUN Creatinine Estim Creat Clear Calc Est GFR (MDRD) Af Amer Est GFR (MDRD) Non-Af BUN/Creatinine Ratio Glucose Lactic Acid 1.5 Calcium Magnesium 2.0 Total Bilirubin 0.70 Direct Bilirubin 0.32 H AST 18 ALT 23 Alkaline Phosphatase 87 Troponin I < 0.015 C-React Prot Ext Range 150.00 H B-Natriuretic Peptide Total Protein 7.0 Albumin 2.4 L Globulin 4.6 H TSH COVID-19 (JOSÉ) MRSA (PCR) 04/13/20 04/14/20 04/14/20 12:01 06:09 06:09 WBC 1.2 L* RBC 3.23 L Hgb 8.7 L Hct 27.7 L MCV 85.8 MCH 26.9 L MCHC 31.4 L RDW Std Deviation 56.9 H RDW Coeff of Sinan 18.2 H Plt Count 59 L MPV 9.6 Immature Gran % (Auto) 1.700 H Neut % (Auto) 33.2 L Lymph % (Auto) 55.6 H [place] % (Auto) 6.0 Eos % (Auto) 2.6 Baso % (Auto) 0.9 Absolute Neuts (auto) 0.4 L Absolute Lymphs (auto) 0.65 L Nucleated RBC % 0 Differential Comment SCANNED Diff Path Review January foll D-Dimer Quant (PE/DVT) Sodium 137 Potassium 2.9 L Chloride 108 H Carbon Dioxide 23.0 Anion Gap 6 BUN 23 H Creatinine 0.97 Estim Creat Clear Calc 52.97 Est GFR (MDRD) Af Amer 95 Est GFR (MDRD) Non-Af 79 BUN/Creatinine Ratio 23.7 H Glucose 90 Lactic Acid Calcium 8.0 L Magnesium Total Bilirubin Direct Bilirubin AST ALT Alkaline Phosphatase Troponin I 0.023 C-React Prot Ext Range B-Natriuretic Peptide Total Protein Albumin Globulin TSH 0.59 COVID-19 (JOSÉ) MRSA (PCR) Microbiology 04/13/20 21:20 Urine, Clean Catch Streptococcus pneumoniae Antigen (M - Final 04/13/20 21:20 Urine, Clean Catch Legionella Antigen - Final 04/13/20 10:45 Mucosa - Nose Respiratory Panel (PCR) - Final Clinical Impression(s) from Imaging Studies Chest X-Ray 04/13/20 05:55 IMPRESSION: Left basilar opacity, possibly pneumonia, aspiration pneumonia and/or atelectasis. Correlation with clinical findings and follow-up recommended. Left pleural fluid versus pleural thickening. at 0636 Reported and signed by: Vicki Edouard MD Electronically Signed: Vicki Edouard MD at 6:36 EDT Tel , Service support , Chest CTA 04/13/20 06:42 IMPRESSION: Pulmonary emboli seen in the right interlobar pulmonary artery as well as in the right lower lobe pulmonary arterial branches. Small left pleural effusion with diffuse left pleural thickening and volume loss in the left hemithorax. Electronically Signed: Jabari Page, at 8:08 EDT , Service support , Current Medications Acetaminophen (Tylenol) 650 mg PO Q6H PRN PRN PRN Reason: Pain Score 1-10/Temp > 100.7 F Al Hydroxide/Mg Hydroxide (Mylanta Ii) 30 ml PO Q6H PRN PRN PRN Reason: Gastric Burning Albuterol Sulfate (Ventolin Aerosols) 2.5 mg INHALATION Q2H PRN PRN PRN Reason: SOB/Wheezing Albuterol/Ipratropium (Duoneb) 3 ml INHALATION Q6H.RT CLAUDIA Last Admin: 04/14/20 07:24 Dose: 3 ml Documented by: Atorvastatin Calcium (Lipitor) 20 mg PO QHS CLAUDIA Last Admin: 07/31/20 21:05 Dose: 20 mg Documented by: Dextrose (D50w Syringe) 0 gm IV X1 PRN; Protocol PRN Reason: Hypoglycemia Enoxaparin Sodium (Lovenox) 60 mg SC Q12@0600,1800 [facility] Last Admin: 04/14/20 05:38 Dose: 60 mg Documented by: Glucagon () 1 mg IM .X1 PRN PRN Reason: Hypoglycemia Guaifenesin (Mucinex) 1,200 mg PO BID [facility] Last Admin: 04/13/20 21:05 Dose: 1,200 mg Documented by: Sodium Chloride () 1,000 mls @ 50 mls/hr IV .Q20H [facility] Last Infusion: 04/13/20 23:59 Dose: 50 mls/hr Documented by: Piperacillin Sod/Tazobactam (Sod 3.375 gm/ Sodium Chloride) 50 mls @ 12.5 mls/hr IV Q8 [facility] Last Admin: 04/14/20 05:37 Dose: 12.5 mls/hr Documented by: Metoprolol Tartrate (Lopressor (Beta Nella)) 50 mg PO BID [facility] Last Admin: 04/13/20 21:05 Dose: 50 mg Documented by: Morphine Sulfate () 2 mg IV Q3H PRN PRN PRN Reason: Pain Score 6-10/10 Nitroglycerin (Nitrostat) 0.4 mg SUBLINGUAL Q5M PRN PRN Reason: CARDIAC/CHEST PAIN Nutritional Formula (Lactose Free) (Ensure Enlive) 120 ml PO 4X/DAY [facility] Last Admin: 04/13/20 21:04 Dose: Not Given Documented by: Ondansetron HCl (Zofran) 4 mg IV Q6H PRN PRN PRN Reason: NAUSEA/VOMITING Last Admin: 04/14/20 05:47 Dose: 4 mg Documented by: Oxycodone HCl (Oxyir) 5 mg PO Q4H PRN PRN PRN Reason: Pain Score 4-5/10 Pioglitazone HCl (Actos) 30 mg PO DAILY [facility] Promethazine HCl (Phenergan) 12.5 mg IV Q6H PRN PRN PRN Reason: Breakthrough Nausea/Vomiting Senna/Docusate Sodium (Senokot-S, Kylie-Colace) 2 tablet PO BID PRN PRN PRN Reason: Constipation Sodium Chloride () 10 - 40 ml IV UD PRN PRN Reason: SALINE FLUSH Last Admin: 04/14/20 05:48 Dose: 10 ml Documented by: Tbo-Filgrastim (Granix) 300 mcg SC DAILY CLAUDIA Last Admin: 04/13/20 09:29 Dose: 300 mcg Documented by: Medical Necessity - Tobacco Use Smoking Status: Former smoker Tobacco Use: Non-smoker Assessment/Plan All Active Problems Diverticulitis large intestine (Resolved) Cancer of left lung (Acute) Left pleural effusion (Acute) Atrial fibrillation with RVR (Acute) Acute respiratory insufficiency (Acute) RECOMMENDATIONS: 1. Transition to continuous heparin infusion for systemic anticoagulation purposes. 2. Obtain lower extremity Doppler studies, should IVC filter placement be indicated in the near future. 3. Continue empiric antimicrobial therapy. 4. Encourage incentive spirometer use and mobilize patient as tolerated. 5. Send type and screen. Transfuse if hemoglobin drops below 7 g/dL. 6. Aggressive electrolyte repletion. 7. Continue Granix. IMPRESSIONS: 1. Acute hypoxemic respiratory insufficiency/shortness of breath secondary to pulmonary emboli and possible pneumonia The patient presented to the hospital with shortness of breath with radiographic evidence of multiple right-sided pulmonary emboli. He also has a questionable infiltrate in the left lung base. Given the patient's pancytopenia, it is reasonable to continue empiric antimicrobials. Continue patient on systemic anticoagulation. I would plan to obtain lower extremity Doppler studies, should IVC filter placement be indicated in the near future, given the patient's significant pancytopenia. 2. Pancytopenia Likely secondary to chemotherapy. Continue to monitor daily. Continue Granix. Send type and screen. Transfuse if hemoglobin drops below 7 g/dL. 3. Hypokalemia Electrolyte repletion as ordered. Recheck levels in the morning. 4. Primary lung cancer/hypertension/hyperlipidemia/diabetes mellitus/transient atrial fibrillation Complicates care, management, recovery and prognosis. Continue home medications were indicated. Although the patient presented in atrial fibrillation, he subsequently chemically converted after receiving Cardizem. This note was generated with [employer] dictation software. It may contain incorrect words, spelling, and punctuation that were not noted in checking the note before signing. Inpatient E&M: 32675 Subs Hosp L2
--- NOTE | 2020-04-14 08:18 | VDLE_ITS ---
Reason For Study: Pulmonary embolism RIGHT LEFT GSV is normal. GSV is normal. CFV is compressible, spontaneous, competent CFV is compressible, spontaneous, competent, and demonstrates pulsatile venous flow. and demonstrates pulsatile venous flow. FV is compressible, spontaneous, competent FV is compressible, spontaneous, competent and demonstrates pulsatile venous flow. and demonstrates pulsatile venous flow. POP V is compressible, spontaneous, competent POP V is compressible, spontaneous, competent and demonstrates pulsatile venous flow. and demonstrates pulsatile venous flow. T/P Trunk is compressible. T/P Trunk is compressible. PTV is compressible. PTV is compressible. RT PerV is compressible. LT PerV is compressible. Procedure Exam performed portable in patient room. A preliminary report was called and/or faxed to [facility]. Interpretation Summary No evidence for acute deep venous thrombosis bilateral lower extremities with patent and compressible bilateral great saphenous veins. Pulsatile venous flow is noted bilaterally suspicious for proximal venous hypertension or obstruction. Clinical correlation would be appropriate. Ordering Physician: Mark Jackman Referring Physician: Jack Schaffer Performed By: Mary Daugherty RVT
--- NOTE | 2020-04-14 08:45 | NURSING ---
Lab is aware of the need for PTT/PT/INR in order to start heparin drip. THis nurse asked Portal, show horse driver to start another line on pt b/c he only has one iv site and going to start heparin drip and need kriders x4 bags.
[2020-04-14] MEDS: Metoprolol Tartrate 50 MG Tablet PO ×2 (08:48→21:35)
[2020-04-14] MEDS: Pioglitazone Hydrochloride 30 MG Tablet PO (08:48)
[2020-04-14] MEDS: guaiFENesin 1,200 MG Tablet 1200 MG PO ×2 (08:49→21:23)
[2020-04-14] MEDS: TBO-FILGRASTIM 300 MCG/0.5 ML ML SC (09:01)
--- NOTE | 2020-04-14 09:02 | NURSING ---
lab here and obtained PTT/PT/INR.
[2020-04-14] MEDS: proMETHazine 25 MG/ML Syringe 12.5 MG IV (09:14)
[2020-04-14 09:24] LABS: International Normalized Ratio 1.3; Prothrombin Time (Protime)PT. 15.4 SECONDS (11.7-14.9)
[2020-04-14 09:25] LABS: Partial Thromboplast Time 41.7 Seconds (24.1-36.2)
[2020-04-14] MEDS: 0.9% Normal Saline 1,000 ML 50 ML IV ×2 (09:55→21:23)
[2020-04-14] MEDS: Potassium Chloride 10mEq/100mL 10 MEQ/100 ML IV.SOLN. 100 MEQ IV BOLUS (10:28)
--- NOTE | 2020-04-14 10:31 | PN_ITS ---
Patient Problems: Active and Suspected Problems Cancer of left lung (Acute) Left pleural effusion (Acute) Atrial fibrillation with RVR (Acute) Acute respiratory insufficiency (Acute) Reason for Visit: Follow-up for shortness of breath from left basilar atelectasis, small effusion and possible pneumonia in the left lung cancer, pancytopenia, Objective: Patient does not have fever or chills. Blood pressure is maintained. Pulse ox 99% on room air. Physical exam General: Alert, Oriented x3, Cooperative HEENT: Atraumatic, PERRLA, EOMI, Normocephalic Oral: No Gingival or Mucosal Lesions/ Ulcerations Neck: Supple, No JVD, Negative Carotid Bruits Lungs: Air entry diminished in left posterior half of lung. Left posterior lateral thoracotomy scar. No wheezing or rhonchi. Cardiovascular: Regular rate, Regular Rhythm, Normal S1, Normal S2, systolic murmur present over left lower sternal border and aortic region. Abdomen: Bowel Sounds Present, Soft, Non Tender, Non-Distended : No renal angle tenderness. No suprapubic tenderness. Extremities: No edema, Capillary Refill Less than 3 Seconds Skin: No rashes, No breakdown Musculoskeletal: No Tenderness to Palpation of Joints or Extremities Neurological: Cranial nerves II-XII grossly intact, Deep Tendon Reflexes 2+/4 and Symmetrical, Neuro grossly intact Psych/Mental Status: Normal Affect, Appropriate. Vitals/I&O's: Vital Signs Temp Pulse Resp BP Pulse Ox 96.9 F L 79 20 H 122/65 H 99 04/14/20 08:43 04/14/20 08:48 04/14/20 08:43 04/14/20 08:43 04/14/20 08:43 Oxygen Flow Rate (L/min) 2 Oxygen Delivery Method Room Air Weight: 143 lb 1.28 oz Body Mass Index (BMI) 21.1 Finger Stick Blood Glucose 121 Intake and Output for Last 24 Hours 04/12/20 04/13/20 04/14/20 23:59 23:59 23:59 Intake Total 2228.54 / 2228.54 401.46 / 401.46 Output Total 450 / 450 Balance 1778.54 / 1778.54 401.46 / 401.46 Microbiology Past 72 Hours 04/13/20 21:20 Urine, Clean Catch Streptococcus pneumoniae Antigen (M - Final 04/13/20 21:20 Urine, Clean Catch Legionella Antigen - Final 04/13/20 10:45 Mucosa - Nose Respiratory Panel (PCR) - Final Laboratory Results 04/13/20 05:45: Diff Path Review Reviewed 04/13/20 08:48: MRSA (PCR) Negative 04/13/20 12:01: Troponin I 0.023 04/14/20 06:09: WBC 1.2 L*, RBC 3.23 L, Hgb 8.7 L, Hct 27.7 L, MCV 85.8, MCH 26.9 L, MCHC 31.4 L, RDW Std Deviation 56.9 H, RDW Coeff of Sinan 18.2 H, Plt Count 59 L, MPV 9.6, Immature Gran % (Auto) 1.700 H, Neut % (Auto) 33.2 L, Lymph % (Auto) 55.6 H, Sunflower % (Auto) 6.0, Eos % (Auto) 2.6, Baso % (Auto) 0.9, Absolute Neuts (auto) 0.4 L, Absolute Lymphs (auto) 0.65 L, Nucleated RBC % 0, Differential Comment SCANNED, Diff Path Review May foll 04/14/20 06:09: Sodium 137, Potassium 2.9 L, Chloride 108 H, Carbon Dioxide 23.0, Anion Gap 6, BUN 23 H, Creatinine 0.97, Estim Creat Clear Calc 52.97, Est GFR (MDRD) Af Amer 95, Est GFR (MDRD) Non-Af 79, BUN/Creatinine Ratio 23.7 H, Glucose 90, Calcium 8.0 L, TSH 0.59 04/14/20 08:30: Blood Type A POSITIVE, Antibody Screen NEGATIVE 04/14/20 09:00: PT 15.4 H, INR 1.3, APTT 41.7 H Current Medications Acetaminophen (Tylenol) 650 mg PO Q6H PRN PRN PRN Reason: Pain Score 1-10/Temp > 100.7 F Al Hydroxide/Mg Hydroxide (Mylanta Ii) 30 ml PO Q6H PRN PRN PRN Reason: Gastric Burning Albuterol Sulfate (Ventolin Aerosols) 2.5 mg INHALATION Q2H PRN PRN PRN Reason: SOB/Wheezing Albuterol/Ipratropium (Duoneb) 3 ml INHALATION Q6H.RT CLAUDIA Last Admin: 04/14/20 07:24 Dose: 3 ml Documented by: Atorvastatin Calcium (Lipitor) 20 mg PO QHS [facility] Last Admin: 04/13/20 21:05 Dose: 20 mg Documented by: Dextrose (D50w Syringe) 0 gm IV X1 PRN; Protocol PRN Reason: Hypoglycemia Glucagon () 1 mg IM .X1 PRN PRN Reason: Hypoglycemia Guaifenesin (Mucinex) 1,200 mg PO BID [facility] Last Admin: 04/14/20 08:49 Dose: 1,200 mg Documented by: Heparin Sodium (Porcine) (Heparin Na) 0 unit IV UD PRN; Protocol PRN Reason: PROTOCOL Sodium Chloride () 1,000 mls @ 50 mls/hr IV .Q20H [facility] Last Admin: 04/14/20 09:55 Dose: 50 mls/hr Documented by: Heparin Sodium/Dextrose () 25,000 units in 250 mls @ 10 mls/hr IV .Q25H [facility]; Protocol Potassium Chloride () 10 meq in 100 mls @ 100 mls/hr IV BOLUS Q1H [facility] Stop: 04/14/20 12:29 Last Admin: 04/14/20 10:28 Dose: 100 mls/hr Documented by: Cefepime HCl 1 gm/ Sodium (Chloride) 50 mls @ 100 mls/hr IV Q8 [facility] Metoprolol Tartrate (Lopressor (Beta Nella)) 50 mg PO BID [facility] Last Admin: 04/14/20 08:48 Dose: 50 mg Documented by: Morphine Sulfate () 2 mg IV Q3H PRN PRN PRN Reason: Pain Score 6-10/10 Nitroglycerin (Nitrostat) 0.4 mg SUBLINGUAL Q5M PRN PRN Reason: CARDIAC/CHEST PAIN Nutritional Formula (Lactose Free) (Ensure Enlive) 120 ml PO 4X/DAY [facility] Last Admin: 04/14/20 08:59 Dose: 120 ml Documented by: Ondansetron HCl (Zofran) 4 mg IV Q6H PRN PRN PRN Reason: NAUSEA/VOMITING Last Admin: 04/14/20 05:47 Dose: 4 mg Documented by: Oxycodone HCl (Oxyir) 5 mg PO Q4H PRN PRN PRN Reason: Pain Score 4-5/10 Pioglitazone HCl (Actos) 30 mg PO DAILY [facility] Last Admin: 04/14/20 08:48 Dose: 30 mg Documented by: Promethazine HCl (Phenergan) 12.5 mg IV Q6H PRN PRN PRN Reason: Breakthrough Nausea/Vomiting Last Admin: 04/14/20 09:14 Dose: 12.5 mg Documented by: Senna/Docusate Sodium (Senokot-S, Kylie-Colace) 2 tablet PO BID PRN PRN PRN Reason: Constipation Sodium Chloride () 10 - 40 ml IV UD PRN PRN Reason: SALINE FLUSH Last Admin: 04/14/20 09:14 Dose: 40 ml Documented by: Tbo-Filgrastim (Granix) 300 mcg SC DAILY CLAUDIA Last Admin: 04/14/20 09:01 Dose: 300 mcg Documented by: STROKE Vital Signs/Narrative: Vital Signs Temp Pulse Resp BP Pulse Ox 04/14/20 08:48 79 04/14/20 08:43 96.9 F L 79 20 H 122/65 H 99 04/14/20 07:30 77 04/14/20 07:24 76 18 97 Medical Necessity - Tobacco Use Smoking Status: Former smoker Tobacco Use: Non-smoker Assessment/Plan All Active Problems Diverticulitis large intestine (Resolved) Cancer of left lung (Acute) Left pleural effusion (Acute) Atrial fibrillation with RVR (Acute) Acute respiratory insufficiency (Acute) The patient is a 84 year old M with multiple comorbidities including recent diagnosis of left lung cancer after VATS/thoracotomy pleural biopsy, adenocarcinoma in [facility] by Dr. Nelson in January 2020 came to ED with acute on chronic shortness of breath and found to be in A. fib with RVR. Overall clinical assessment was consistent with acute respiratory insufficiency secondary to left lower atelectasis, effusion and possible pneumonia along with A. fib with RVR 1. Acute respiratory insufficiency secondary to left lower opacity probably secondary to effusion, atelectasis and left lower lobe pneumonia: Patient is being admitted in PCU. COVID PCR is negative. Lactic acid, and LFT normal except albumin 2.4. CRP 150. 8/1: Urinary antigens are negative. Respiratory panel negative. MRSA nasal screen negative. IV antibiotic Zosyn was changed to cefepime for concern of thrombocytopenia. 2. Right interlobar, extending to right lower lobe pulmonary embolism: CTPA was reported as right interlobar artery PE and was started on Lovenox on 04/13 which changed to IV heparin drip as patient platelet count dropped from 100,000- 59,000. Watch CBC. CT also shows volume loss in left hemithorax with a small left pleural effusion and irregular pleural thickening involving the lateral and medial aspect of left pleural space. Evidence of bronchiectasis and consolidation in the left lower lobe. Echo shows EF 70%, RVSP 55 mmHg. Aortic sclerosis but no stenosis. BNP slightly elevated 102 3. Left lung cancer after VATS pleural biopsy, left posterior lateral thoracotomy: Discussed with Dr. Adam Cote. Patient had VATS pleural biopsy came out to be adenocarcinoma and [facility] by Dr. Nelson. Patient had left posterior thoracotomy with evacuation of loculated effusion and total decortication on January 2020. Pleural fluid cytology positive of adenocarcinoma Oncology consult. Try to get medical record from [facility]. 3. Pancytopenia: WBC count 1.5 thousand, ANC 500, H&H 10.7/33 and platelet count 100,000. Antiplatelet/anticoagulant contraindicated. D-dimer high 7.92. On Neupogen Acute anemia on anemia of chronic disease secondary to anticoagulant with history of lung cancer, chemotherapy. 4. Coronary artery disease status post stents A. fib with RVR: Converted to normal sinus rhythm after 20 mg IV Cardizem. Serial troponin enzymes. 2D echo ordered. Patient has history of coronary artery disease and 2 stents in early 1999. Denies any recent MA or chest pain at rest or exertion. 5. Other comorbidities include dyslipidemia, diverticulitis of large intestine, chronic vertigo: Home medication reconciliation done. Living will/advanced directive/end of life care: Full code. Total time of the visit including total time spent in counseling or coordination of care, (more than 50% of the total time, spent in obtaining medical information from nurses and other ancillary care providers), , review of labs and imaging is 30 minutes. Clinical Impression(s) from Imaging Studies Chest X-Ray 04/13/20 05:55 IMPRESSION: Left basilar opacity, possibly pneumonia, aspiration pneumonia and/or atelectasis. Correlation with clinical findings and follow-up recommended. Left pleural fluid versus pleural thickening. at 0636 Reported and signed by: Vicki Edouard MD Electronically Signed: Vicki Edouard MD at 6:36 EDT Tel , Service support , Chest CTA 04/13/20 06:42 IMPRESSION: Pulmonary emboli seen in the right interlobar pulmonary artery as well as in the right lower lobe pulmonary arterial branches. Small left pleural effusion with diffuse left pleural thickening and volume loss in the left hemithorax. Inpatient E&M: [id number] [facility] Hosp L3
--- NOTE | 2020-04-14 11:07 | NURSING ---
Pt c/o burning to IV in Lt wrist where potassium krider is infusing. Despite NS infusing in with it as well, pt still c/o burning. This nurse had to turn potassium krider down to 8ml/hr. In pts Rt AC, he has Maxipime running IVPB and then NS to infuse after in a 250ml bag.
[2020-04-14] MEDS: Heparin Injection (Vial) 5,000 UNIT/ML VIAL IV (11:50)
[2020-04-14] MEDS: Potassium Chloride 10mEq/100mL 10 MEQ/100 ML IV.SOLN. 8 MEQ IV BOLUS ×2 (12:05→14:58)
[2020-04-14] MEDS: oxyCODONE 5 MG Tablet PO ×2 (15:38→21:36)
[2020-04-14] MEDS: Potassium Chloride 10mEq/100mL 10 MEQ/100 ML IV.SOLN. 4 MEQ IV BOLUS (17:26)
--- NOTE | 2020-04-14 17:44 | NURSING ---
up to chair x2 today. Back in bed at this time. Daughter, Anna in room.
--- NOTE | 2020-04-14 18:31 | NURSING ---
This nurse called lab to check on ptt drawal and why it wasnt done yet. Crissy answered and said she would call and check with the girl from lab that should be up here.
[2020-04-14 18:55] LABS: Partial Thromboplast Time 133.1 Seconds (24.1-36.2)
--- NOTE | 2020-04-14 19:06 | NURSING ---
lab called this nurse and informed me that ptt was 133.1. This nurse stopped Heparin at this time. To decrease rate to 7ml/hr when restart in 2 hours per protocol.
[2020-04-14] MEDS: Atorvastatin Calcium 20 MG Tablet PO (21:23)
[2020-04-15] VITALS (12 sets, daily range): BP systolic 115–137; BP diastolic 54–78; PULSE 65–88; RESP 14–19; TEMP 36.6–37.1; O2SAT 96–100
[2020-04-15 03:30] LABS: Absolute Lymphocyte Count 0.87 X10^3/uL (0.83-4.51); Absolute Neutrophil Count 0.7 X10^3/uL (2.0-7.7); Basophil# 0.01 X10^3/uL; Basophil% 0.6 % (0-1); Eosinophil# 0.08 X10^3/uL; Eosinophils% 4.5 % (0-5); Hematocrit 26.1 % (40-54); Hemoglobin 8.3 g/dL (13.0-16.5); Lymphocyte # 0.87 X10^3/ul (4.0); Lymphocyte % 48.9 % (19-41); Mean Corp Hgb Conc 31.8 g/dL (32-36); Mean Corpuscular Hgb 26.9 pg (27.0-32.0); Mean Corpuscular Volume 84.5 fL (80-94); Mean Platelet Vol. 9.8 fl (6.2-12.0); Monocyte% 5.6 % (0-10); NRBC Flagged by Analyzer 0 % (0-5); Neutrophil % 39.3 % (47-70); POSITIVE COUNT YES; POSITIVE DIFFERENTIAL YES; POSITIVE MORPHOLOGY YES; RBC Distribution Width CV 18.1 % (11.6-14.6); RBC Distribution Width SD 55.1 fl (35.1-43.9); Red Blood Count 3.09 M/mm3 (4.6-6.2); White Blood Count 1.8 K/mm3 (4.4-11.0)
[2020-04-15 03:32] LABS: Differential Indicated SCAN CRITERIA MET; Platelet Count 38 K/mm3 (150-450)
[2020-04-15 03:40] LABS: Partial Thromboplast Time 70.4 Seconds (24.1-36.2)
[2020-04-15 04:00] LABS: Differential Comment SCANNED; Platelet Estimate MKD DEC (ADEQ)
[2020-04-15 04:15] LABS: Anion Gap 7 (5-15); BUN 19 mg/dL (7-18); BUN/Creat Ratio 22.6 RATIO (10-20); Calcium,Total 7.8 mg/dL (8.5-10.1); Chloride 107 mmol/L (98-107); Creatinine, Serum 0.84 mg/dL (0.70-1.30); EST Glomerular Filtration Rate 93 mL/min (>60); Est Glom Filt Rate - Afr Amer 112 mL/min (>60); Estimated Creatinine Clearance 61.17 ml/min; Glucose 100 mg/dL (74-106); Potassium 3.2 mmol/L (3.5-5.1); Sodium Level 137 mmol/L (136-145)
[2020-04-15 06:21] LABS: Absolute Lymphocyte Count 0.88 X10^3/uL (0.83-4.51); Absolute Neutrophil Count 0.6 X10^3/uL (2.0-7.7); Basophil# 0.01 X10^3/uL; Basophil% 0.6 % (0-1); Eosinophil# 0.09 X10^3/uL; Eosinophils% 5.3 % (0-5); Hematocrit 25.7 % (40-54); Hemoglobin 8.1 g/dL (13.0-16.5); Lymphocyte # 0.88 X10^3/ul (4.0); Lymphocyte % 51.5 % (19-41); Mean Corp Hgb Conc 31.5 g/dL (32-36); Mean Corpuscular Hgb 26.8 pg (27.0-32.0); Mean Corpuscular Volume 85.1 fL (80-94); Mean Platelet Vol. 10.5 fl (6.2-12.0); Monocyte# 0.09 X10^3/uL; Monocyte% 5.3 % (0-10); NRBC Flagged by Analyzer 0 % (0-5); Neutrophil # 0.62 X10^3/uL (2.7-7.7); Neutrophil % 36.1 % (47-70); POSITIVE COUNT YES; POSITIVE DIFFERENTIAL YES; POSITIVE MORPHOLOGY YES; RBC Distribution Width CV 18.3 % (11.6-14.6); Red Blood Count 3.02 M/mm3 (4.6-6.2); White Blood Count 1.7 K/mm3 (4.4-11.0)
[2020-04-15 06:22] LABS: Differential Indicated SCAN CRITERIA MET
[2020-04-15] MEDS: Ipratropium/Albuterol Sulfate 3 ML AMPUL.NEB INHALATION ×2 (06:54→14:03)
[2020-04-15 06:56] LABS: Platelet Count 36 K/mm3 (150-450)
[2020-04-15 06:57] LABS: Differential Comment SCANNED; Platelet Estimate MKD DEC (ADEQ)
--- NOTE | 2020-04-15 07:05 | PCM.PN.PUL ---
Patient Problems: Active and Suspected Problems Cancer of left lung (Acute) Left pleural effusion (Acute) Atrial fibrillation with RVR (Acute) Acute respiratory insufficiency (Acute) Pulmonary embolism (Acute) Thrombocytopenia (Acute) Subjective: The patient was seen and examined at the bedside this morning. Events from the last 24 hours have been reviewed. The patient is currently afebrile, hemodynamically stable and maintaining appropriate oxygen saturations on room air. The patient remains pancytopenic. His platelet count continues to drop. Potassium was low this morning at 3.2. Objective: The patient's most recent lab work, culture data and imaging studies have all been personally reviewed. Surface echocardiogram revealed normal LV size with an ejection fraction of 70%. Pulmonary artery systolic pressure was estimated to be 55 mmHg. CTA chest revealed multiple right-sided pulmonary emboli along with a small left pleural effusion and pleural thickening. Bronchiectasis with possible airspace consolidation was also noted in the left lower lobe. Infectious work-up has been unrevealing to date. - Physical Exam Vitals/I&O's: Vital Signs Temp Pulse Resp BP Pulse Ox 98.2 F 65 18 115/78 100 04/15/20 03:06 04/15/20 03:36 04/15/20 03:06 04/15/20 03:06 04/15/20 03:06 Oxygen Flow Rate (L/min) 2 Oxygen Delivery Method Room Air Weight: 144 lb 2.917 oz Body Mass Index (BMI) 21.1 Finger Stick Blood Glucose 121 Intake and Output for Last 24 Hours 04/13/20 04/14/20 04/15/20 23:59 23:59 23:59 Intake Total 2228.54 / 2228.54 2110.43 / 2110.43 532.5 / 532.5 Output Total 450 / 450 Balance 1778.54 / 1778.54 2110.43 / 2110.43 532.5 / 532.5 General: Alert, Cooperative, No apparent distress, - - Sitting upright in bed. Hard of hearing. HEENT: Atraumatic, PERRLA, Normocephalic Oral: Moist Mucosa, No Gingival or Mucosal Lesions/ Ulcerations Neck: Supple, No Nodes, Trachea Midline Lungs: Diminished Cardiovascular: Regular rate, Normal S1, Normal S2, Murmur Abdomen: Bowel Sounds Present, Soft, Non Tender Extremities: No clubbing, No cyanosis, No edema Skin: No breakdown Musculoskeletal: No Tenderness to Palpation of Joints or Extremities Lymphatic: No Cervical, Supraclavicular, or Inguinal Adenopathy Neurological: Cranial nerves II-XII grossly intact, Neuro grossly intact Psych/Mental Status: Alert and oriented to time, place, person, mood and affect Labs (Last 48 Hours) 04/13/20 04/13/20 04/13/20 05:45 05:45 06:05 WBC RBC Hgb Hct MCV MCH MCHC RDW Std Deviation RDW Coeff of Sinan Plt Count MPV Immature Gran % (Auto) Neut % (Auto) Lymph % (Auto) [place] % (Auto) Eos % (Auto) Baso % (Auto) Absolute Neuts (auto) Absolute Lymphs (auto) Nucleated RBC % Differential Comment Diff Path Review Reviewed Platelet Estimate PT INR APTT Sodium Potassium Chloride Carbon Dioxide Anion Gap BUN Creatinine Estim Creat Clear Calc Est GFR (MDRD) Af Amer Est GFR (MDRD) Non-Af BUN/Creatinine Ratio Glucose Lactic Acid Calcium Magnesium Total Bilirubin Direct Bilirubin AST ALT Alkaline Phosphatase Troponin I C-React Prot Ext Range B-Natriuretic Peptide 102.8 H Total Protein Albumin Globulin TSH COVID-19 (JOSÉ) Negative MRSA (PCR) Blood Type Antibody Screen 04/13/20 04/13/20 04/13/20 08:48 08:52 08:52 WBC RBC Hgb Hct MCV MCH MCHC RDW Std Deviation RDW Coeff of Sinan Plt Count MPV Immature Gran % (Auto) Neut % (Auto) Lymph % (Auto) [place] % (Auto) Eos % (Auto) Baso % (Auto) Absolute Neuts (auto) Absolute Lymphs (auto) Nucleated RBC % Differential Comment Diff Path Review Platelet Estimate PT INR APTT Sodium Potassium Chloride Carbon Dioxide Anion Gap BUN Creatinine Estim Creat Clear Calc Est GFR (MDRD) Af Amer Est GFR (MDRD) Non-Af BUN/Creatinine Ratio Glucose Lactic Acid 1.5 Calcium Magnesium 2.0 Total Bilirubin 0.70 Direct Bilirubin 0.32 H AST 18 ALT 23 Alkaline Phosphatase 87 Troponin I C-React Prot Ext Range 150.00 H B-Natriuretic Peptide Total Protein 7.0 Albumin 2.4 L Globulin 4.6 H TSH COVID-19 (JOSÉ) MRSA (PCR) Negative Blood Type Antibody Screen 04/13/20 04/13/20 04/14/20 08:52 12:01 06:09 WBC 1.2 L* RBC 3.23 L Hgb 8.7 L Hct 27.7 L MCV 85.8 MCH 26.9 L MCHC 31.4 L RDW Std Deviation 56.9 H RDW Coeff of Sinan 18.2 H Plt Count 59 L MPV 9.6 Immature Gran % (Auto) 1.700 H Neut % (Auto) 33.2 L Lymph % (Auto) 55.6 H [place] % (Auto) 6.0 Eos % (Auto) 2.6 Baso % (Auto) 0.9 Absolute Neuts (auto) 0.4 L Absolute Lymphs (auto) 0.65 L Nucleated RBC % 0 Differential Comment SCANNED Diff Path Review May foll Platelet Estimate PT INR APTT Sodium Potassium Chloride Carbon Dioxide Anion Gap BUN Creatinine Estim Creat Clear Calc Est GFR (MDRD) Af Amer Est GFR (MDRD) Non-Af BUN/Creatinine Ratio Glucose Lactic Acid Calcium Magnesium Total Bilirubin Direct Bilirubin AST ALT Alkaline Phosphatase Troponin I < 0.015 0.023 C-React Prot Ext Range B-Natriuretic Peptide Total Protein Albumin Globulin TSH COVID-19 (JOSÉ) MRSA (PCR) Blood Type Antibody Screen 04/14/20 04/14/20 04/14/20 06:09 08:30 09:00 WBC RBC Hgb Hct MCV MCH MCHC RDW Std Deviation RDW Coeff of Sinan Plt Count MPV Immature Gran % (Auto) Neut % (Auto) Lymph % (Auto) [place] % (Auto) Eos % (Auto) Baso % (Auto) Absolute Neuts (auto) Absolute Lymphs (auto) Nucleated RBC % Differential Comment Diff Path Review Platelet Estimate PT 15.4 H INR 1.3 APTT 41.7 H Sodium 137 Potassium 2.9 L Chloride 108 H Carbon Dioxide 23.0 Anion Gap 6 BUN 23 H Creatinine 0.97 Estim Creat Clear Calc 52.97 Est GFR (MDRD) Af Amer 95 Est GFR (MDRD) Non-Af 79 BUN/Creatinine Ratio 23.7 H Glucose 90 Lactic Acid Calcium 8.0 L Magnesium Total Bilirubin Direct Bilirubin AST ALT Alkaline Phosphatase Troponin I C-React Prot Ext Range B-Natriuretic Peptide Total Protein Albumin Globulin TSH 0.59 COVID-19 (JOSÉ) MRSA (PCR) Blood Type A POSITIVE Antibody Screen NEGATIVE 04/14/20 04/15/20 04/15/20 18:05 03:15 03:15 WBC 1.8 L RBC 3.09 L Hgb 8.3 L Hct 26.1 L MCV 84.5 MCH 26.9 L MCHC 31.8 L RDW Std Deviation 55.1 H RDW Coeff of Sinan 18.1 H Plt Count 38 L* MPV 9.8 Immature Gran % (Auto) 1.100 H Neut % (Auto) 39.3 L Lymph % (Auto) 48.9 H [place] % (Auto) 5.6 Eos % (Auto) 4.5 Baso % (Auto) 0.6 Absolute Neuts (auto) 0.7 L Absolute Lymphs (auto) 0.87 Nucleated RBC % 0 Differential Comment SCANNED Diff Path Review May foll Platelet Estimate MKD DEC PT INR APTT 133.1 H* 70.4 H Sodium Potassium Chloride Carbon Dioxide Anion Gap BUN Creatinine Estim Creat Clear Calc Est GFR (MDRD) Af Amer Est GFR (MDRD) Non-Af BUN/Creatinine Ratio Glucose Lactic Acid Calcium Magnesium Total Bilirubin Direct Bilirubin AST ALT Alkaline Phosphatase Troponin I C-React Prot Ext Range B-Natriuretic Peptide Total Protein Albumin Globulin TSH COVID-19 (JOSÉ) MRSA (PCR) Blood Type Antibody Screen 04/15/20 04/15/20 03:15 05:55 WBC 1.7 L RBC 3.02 L Hgb 8.1 L Hct 25.7 L MCV 85.1 MCH 26.8 L MCHC 31.5 L RDW Std Deviation 57.0 H RDW Coeff of Sinan 18.3 H Plt Count 36 L* MPV 10.5 Immature Gran % (Auto) 1.200 H Neut % (Auto) 36.1 L Lymph % (Auto) 51.5 H [place] % (Auto) 5.3 Eos % (Auto) 5.3 H Baso % (Auto) 0.6 Absolute Neuts (auto) 0.6 L Absolute Lymphs (auto) 0.88 Nucleated RBC % 0 Differential Comment SCANNED Diff Path Review May foll Platelet Estimate MKD DEC PT INR APTT Sodium 137 Potassium 3.2 L Chloride 107 Carbon Dioxide 23.0 Anion Gap 7 BUN 19 H Creatinine 0.84 Estim Creat Clear Calc 61.17 Est GFR (MDRD) Af Amer 112 Est GFR (MDRD) Non-Af 93 BUN/Creatinine Ratio 22.6 H Glucose 100 Lactic Acid Calcium 7.8 L Magnesium Total Bilirubin Direct Bilirubin AST ALT Alkaline Phosphatase Troponin I C-React Prot Ext Range B-Natriuretic Peptide Total Protein Albumin Globulin TSH COVID-19 (JOSÉ) MRSA (PCR) Blood Type Antibody Screen Microbiology 04/13/20 21:20 Urine, Clean Catch Streptococcus pneumoniae Antigen (M - Final 04/13/20 21:20 Urine, Clean Catch Legionella Antigen - Final 04/13/20 10:45 Mucosa - Nose Respiratory Panel (PCR) - Final Clinical Impression(s) from Imaging Studies Chest X-Ray 04/13/20 05:55 IMPRESSION: Left basilar opacity, possibly pneumonia, aspiration pneumonia and/or atelectasis. Correlation with clinical findings and follow-up recommended. Left pleural fluid versus pleural thickening. at 0636 Reported and signed by: Vicki Edouard MD Electronically Signed: Vicki Edouard MD at 6:36 EDT Tel , Service support , Chest CTA 04/13/20 06:42 IMPRESSION: Pulmonary emboli seen in the right interlobar pulmonary artery as well as in the right lower lobe pulmonary arterial branches. Small left pleural effusion with diffuse left pleural thickening and volume loss in the left hemithorax. Electronically Signed: Jabari Kaylee, at 8:08 EDT , Service support , Current Medications Acetaminophen (Tylenol) 650 mg PO Q6H PRN PRN PRN Reason: Pain Score 1-10/Temp > 100.7 F Al Hydroxide/Mg Hydroxide (Mylanta Ii) 30 ml PO Q6H PRN PRN PRN Reason: Gastric Burning Albuterol Sulfate (Ventolin Aerosols) 2.5 mg INHALATION Q2H PRN PRN PRN Reason: SOB/Wheezing Albuterol/Ipratropium (Duoneb) 3 ml INHALATION Q6H.RT CLAUDIA Last Admin: 04/15/20 06:54 Dose: 3 ml Documented by: Atorvastatin Calcium (Lipitor) 20 mg PO QHS CLAUDIA Last Admin: 04/14/20 21:23 Dose: 20 mg Documented by: Dextrose (D50w Syringe) 0 gm IV X1 PRN; Protocol PRN Reason: Hypoglycemia Gabapentin (Neurontin) 200 mg PO TIDCM [facility] Glucagon () 1 mg IM .X1 PRN PRN Reason: Hypoglycemia Guaifenesin (Mucinex) 1,200 mg PO BID [facility] Last Admin: 04/14/20 21:23 Dose: 1,200 mg Documented by: Heparin Sodium (Porcine) (Heparin Na) 0 unit IV UD PRN; Protocol PRN Reason: PROTOCOL Last Admin: 04/14/20 11:50 Dose: 4,500 unit Documented by: Sodium Chloride () 1,000 mls @ 50 mls/hr IV .Q20H [facility] Last Infusion: 04/15/20 06:03 Dose: 50 mls/hr Documented by: Cefepime HCl 1 gm/ Sodium (Chloride) 50 mls @ 100 mls/hr IV Q8 [facility] Last Infusion: 04/15/20 06:03 Dose: Infused Documented by: Heparin Sodium/Sodium Chloride () 25,000 unit in 250 mls @ 10 mls/hr IV .Q25H [facility]; Protocol Last Titration: 04/14/20 21:07 Dose: 7 mls/hr Documented by: Sodium Chloride () 250 mls @ 15 mls/hr IV .[id number] PRN PRN Reason: Saline Flush Last Infusion: 04/14/20 22:46 Dose: Infused Documented by: Sodium Chloride () 250 mls @ 15 mls/hr IV .[id number] PRN PRN Reason: Additional IVPB Infusion Metoprolol Tartrate (Lopressor (Beta Nella)) 50 mg PO BID [facility] Last Admin: 04/14/20 21:35 Dose: 50 mg Documented by: Morphine Sulfate () 2 mg IV Q3H PRN PRN PRN Reason: Pain Score 6-10/10 Nitroglycerin (Nitrostat) 0.4 mg SUBLINGUAL Q5M PRN PRN Reason: CARDIAC/CHEST PAIN Nutritional Formula (Lactose Free) (Ensure Enlive) 120 ml PO 4X/DAY [facility] Last Admin: 04/14/20 21:21 Dose: 120 ml Documented by: Ondansetron HCl (Zofran) 4 mg IV Q6H PRN PRN PRN Reason: NAUSEA/VOMITING Last Admin: 04/14/20 05:47 Dose: 4 mg Documented by: Oxycodone HCl (Oxyir) 5 mg PO Q4H PRN PRN PRN Reason: Pain Score 4-5/10 Last Admin: 04/14/20 21:36 Dose: 5 mg Documented by: Pioglitazone HCl (Actos) 30 mg PO DAILY [facility] Last Admin: 04/14/20 08:48 Dose: 30 mg Documented by: Promethazine HCl (Phenergan) 12.5 mg IV Q6H PRN PRN PRN Reason: Breakthrough Nausea/Vomiting Last Admin: 04/14/20 09:14 Dose: 12.5 mg Documented by: Senna/Docusate Sodium (Senokot-S, Kylie-Colace) 2 tablet PO BID PRN PRN PRN Reason: Constipation Sodium Chloride () 10 - 40 ml IV UD PRN PRN Reason: SALINE FLUSH Last Admin: 04/14/20 09:14 Dose: 40 ml Documented by: Tbo-Filgrastim (Granix) 300 mcg SC DAILY [facility] Last Admin: 04/14/20 09:01 Dose: 300 mcg Documented by: Medical Necessity - Tobacco Use Smoking Status: Former smoker Tobacco Use: Non-smoker Assessment/Plan All Active Problems Diverticulitis large intestine (Resolved) Cancer of left lung (Acute) Left pleural effusion (Acute) Atrial fibrillation with RVR (Acute) Acute respiratory insufficiency (Acute) Pulmonary embolism (Acute) Thrombocytopenia (Acute) RECOMMENDATIONS: 1. Continue systemic anticoagulation as tolerated. 2. Lower extremity Doppler studies are pending, should IVC filter placement be indicated in the near future. 3. Continue empiric antimicrobial therapy to complete 7 days of treatment. 4. Encourage incentive spirometer use and mobilize patient as tolerated. 5. Aggressive electrolyte repletion. 6. Continue Granix. IMPRESSIONS: 1. Acute hypoxemic respiratory insufficiency/shortness of breath secondary to pulmonary emboli and possible pneumonia The patient presented to the hospital with shortness of breath with radiographic evidence of multiple right-sided pulmonary emboli. He also has a questionable infiltrate in the left lung base. Given the patient's pancytopenia, it is reasonable to continue empiric antimicrobials. Continue patient on systemic anticoagulation. I would plan to obtain lower extremity Doppler studies, should IVC filter placement be indicated in the near future, given the patient's significant pancytopenia. 2. Pancytopenia Likely secondary to chemotherapy. Continue to monitor daily. Continue Granix. Transfuse if hemoglobin drops below 7 g/dL. 3. Hypokalemia Electrolyte repletion as ordered. Recheck levels in the morning. 4. Primary lung cancer/hypertension/hyperlipidemia/diabetes mellitus/transient atrial fibrillation Complicates care, management, recovery and prognosis. Continue home medications were indicated. Although the patient presented in atrial fibrillation, he subsequently chemically converted after receiving Cardizem. This note was generated with [employer] dictation software. It may contain incorrect words, spelling, and punctuation that were not noted in checking the note before signing. Inpatient E&M: 26535 Subs Hosp L2
--- NOTE | 2020-04-15 07:24 | PN_ITS ---
Patient Problems: Active and Suspected Problems Cancer of left lung (Acute) Left pleural effusion (Acute) Atrial fibrillation with RVR (Acute) Acute respiratory insufficiency (Acute) Reason for Visit: Follow-up for right sided PE, pneumonia and pancytopenia. Severe thrombocytopenia Objective: Patient is afebrile. Blood pressure and heart rate is good Platelet further drop to 36,000 on yesterday about 60,000 and on day of admission 100,000. Physical exam General: Alert, Oriented x3, Cooperative HEENT: Atraumatic, PERRLA, EOMI, Normocephalic Oral: No Gingival or Mucosal Lesions/ Ulcerations Neck: Supple, No JVD, Negative Carotid Bruits Lungs: Air entry diminished in left lung base. No crepitation/rhonchi. No hypoxia or tachypnea. Left posterolateral thoracotomy scar Cardiovascular: Regular rate, Regular Rhythm, Normal S1, Normal S2, No murmurs Abdomen: Bowel Sounds Present, Soft, Non Tender, Non-Distended : No renal angle tenderness. No suprapubic tenderness. Extremities: No edema, Capillary Refill Less than 3 Seconds Skin: No rashes, No breakdown Musculoskeletal: No Tenderness to Palpation of Joints or Extremities Neurological: Cranial nerves II-XII grossly intact, Deep Tendon Reflexes 2+/4 and Symmetrical, Neuro grossly intact Psych/Mental Status: Normal Affect, Appropriate. Vitals/I&O's: Vital Signs Temp Pulse Resp BP Pulse Ox 98.2 F 65 18 115/78 100 04/15/20 03:06 04/15/20 03:36 04/15/20 03:06 04/15/20 03:06 04/15/20 03:06 Oxygen Flow Rate (L/min) 2 Oxygen Delivery Method Room Air Weight: 144 lb 2.917 oz Body Mass Index (BMI) 21.1 Finger Stick Blood Glucose 121 Intake and Output for Last 24 Hours 04/13/20 04/14/20 04/15/20 23:59 23:59 23:59 Intake Total 2228.54 / 2228.54 2110.43 / 2110.43 604.25 / 604.25 Output Total 450 / 450 Balance 1778.54 / 1778.54 2110.43 / 2110.43 604.25 / 604.25 Microbiology Past 72 Hours 04/13/20 21:20 Urine, Clean Catch Streptococcus pneumoniae Antigen (M - Final 07/31/20 21:20 Urine, Clean Catch Legionella Antigen - Final 04/13/20 10:45 Mucosa - Nose Respiratory Panel (PCR) - Final Laboratory Results 04/14/20 08:30: Blood Type A POSITIVE, Antibody Screen NEGATIVE 04/14/20 09:00: PT 15.4 H, INR 1.3, APTT 41.7 H 04/14/20 18:05: APTT 133.1 H* 04/15/20 03:15: WBC 1.8 L, RBC 3.09 L, Hgb 8.3 L, Hct 26.1 L, MCV 84.5, MCH 26.9 L, MCHC 31.8 L, RDW Std Deviation 55.1 H, RDW Coeff of Sinan 18.1 H, Plt Count 38 L*, MPV 9.8, Immature Gran % (Auto) 1.100 H, Neut % (Auto) 39.3 L, Lymph % (Auto) 48.9 H, [place] % (Auto) 5.6, Eos % (Auto) 4.5, Baso % (Auto) 0.6, Absolute Neuts (auto) 0.7 L, Absolute Lymphs (auto) 0.87, Nucleated RBC % 0, Differential Comment SCANNED, Diff Path Review January, Platelet Estimate MKD 04/15/20 03:15: APTT 70.4 H 04/15/20 03:15: Sodium 137, Potassium 3.2 L, Chloride 107, Carbon Dioxide 23.0, Anion Gap 7, BUN 19 H, Creatinine 0.84, Estim Creat Clear Calc 61.17, Est GFR (MDRD) Af Amer 112, Est GFR (MDRD) Non-Af 93, BUN/Creatinine Ratio 22.6 H, Glucose 100, Calcium 7.8 L 04/15/20 05:55: WBC 1.7 L, RBC 3.02 L, Hgb 8.1 L, Hct 25.7 L, MCV 85.1, MCH 26.8 L, MCHC 31.5 L, RDW Std Deviation 57.0 H, RDW Coeff of Sinan 18.3 H, Plt Count 36 L*, MPV 10.5, Immature Gran % (Auto) 1.200 H, Neut % (Auto) 36.1 L, Lymph % (Auto) 51.5 H, [place] % (Auto) 5.3, Eos % (Auto) 5.3 H, Baso % (Auto) 0.6, Absolute Neuts (auto) 0.6 L, Absolute Lymphs (auto) 0.88, Nucleated RBC % 0, Differential Comment SCANNED, Diff Path Review May foll, Platelet Estimate MKD DEC Current Medications Acetaminophen (Tylenol) 650 mg PO Q6H PRN PRN PRN Reason: Pain Score 1-10/Temp > 100.7 F Al Hydroxide/Mg Hydroxide (Mylanta Ii) 30 ml PO Q6H PRN PRN PRN Reason: Gastric Burning Albuterol Sulfate (Ventolin Aerosols) 2.5 mg INHALATION Q2H PRN PRN PRN Reason: SOB/Wheezing Albuterol/Ipratropium (Duoneb) 3 ml INHALATION Q6H.RT [facility] Last Admin: 04/15/20 06:54 Dose: 3 ml Documented by: Atorvastatin Calcium (Lipitor) 20 mg PO QHS [facility] Last Admin: 04/14/20 21:23 Dose: 20 mg Documented by: Dextrose (D50w Syringe) 0 gm IV X1 PRN; Protocol PRN Reason: Hypoglycemia Gabapentin (Neurontin) 200 mg PO TIDCM CLAUDIA Glucagon () 1 mg IM .X1 PRN PRN Reason: Hypoglycemia Guaifenesin (Mucinex) 1,200 mg PO BID [facility] Last Admin: 04/14/20 21:23 Dose: 1,200 mg Documented by: Heparin Sodium (Porcine) (Heparin Na) 0 unit IV UD PRN; Protocol PRN Reason: PROTOCOL Last Admin: 04/14/20 11:50 Dose: 4,500 unit Documented by: Sodium Chloride () 1,000 mls @ 50 mls/hr IV .Q20H [facility] Last Infusion: 04/15/20 06:03 Dose: 50 mls/hr Documented by: Cefepime HCl 1 gm/ Sodium (Chloride) 50 mls @ 100 mls/hr IV Q8 [facility] Last Infusion: 04/15/20 06:03 Dose: Infused Documented by: Heparin Sodium/Sodium Chloride () 25,000 unit in 250 mls @ 10 mls/hr IV .Q25H [facility]; Protocol Last Titration: 04/15/20 07:22 Dose: 0 mls/hr Documented by: Sodium Chloride () 250 mls @ 15 mls/hr IV .[id number] PRN PRN Reason: Saline Flush Last Infusion: 04/14/20 22:46 Dose: Infused Documented by: Sodium Chloride () 250 mls @ 15 mls/hr IV .[id number] PRN PRN Reason: Additional IVPB Infusion Potassium Chloride () 10 meq in 100 mls @ 100 mls/hr IV BOLUS Q1H [facility] Stop: 04/15/20 11:14 Metoprolol Tartrate (Lopressor (Beta Nella)) 50 mg PO BID [facility] Last Admin: 04/14/20 21:35 Dose: 50 mg Documented by: Morphine Sulfate () 2 mg IV Q3H PRN PRN PRN Reason: Pain Score 6-10/10 Nitroglycerin (Nitrostat) 0.4 mg SUBLINGUAL Q5M PRN PRN Reason: CARDIAC/CHEST PAIN Nutritional Formula (Lactose Free) (Ensure Enlive) 120 ml PO 4X/DAY [facility] Last Admin: 04/14/20 21:21 Dose: 120 ml Documented by: Ondansetron HCl (Zofran) 4 mg IV Q6H PRN PRN PRN Reason: NAUSEA/VOMITING Last Admin: 04/14/20 05:47 Dose: 4 mg Documented by: Oxycodone HCl (Oxyir) 5 mg PO Q4H PRN PRN PRN Reason: Pain Score 4-5/10 Last Admin: 04/14/20 21:36 Dose: 5 mg Documented by: Pioglitazone HCl (Actos) 30 mg PO DAILY [facility] Last Admin: 04/14/20 08:48 Dose: 30 mg Documented by: Promethazine HCl (Phenergan) 12.5 mg IV Q6H PRN PRN PRN Reason: Breakthrough Nausea/Vomiting Last Admin: 04/14/20 09:14 Dose: 12.5 mg Documented by: Senna/Docusate Sodium (Senokot-S, Kylie-Colace) 2 tablet PO BID PRN PRN PRN Reason: Constipation Sodium Chloride () 10 - 40 ml IV UD PRN PRN Reason: SALINE FLUSH Last Admin: 04/14/20 09:14 Dose: 40 ml Documented by: Tbo-Filgrastim (Granix) 300 mcg SC DAILY [facility] Last Admin: 04/14/20 09:01 Dose: 300 mcg Documented by: STROKE Vital Signs/Narrative: Vital Signs Pulse 04/15/20 03:36 65 Medical Necessity - Tobacco Use Smoking Status: Former smoker Tobacco Use: Non-smoker Assessment/Plan All Active Problems Diverticulitis large intestine (Resolved) Cancer of left lung (Acute) Left pleural effusion (Acute) Atrial fibrillation with RVR (Acute) Acute respiratory insufficiency (Acute) The patient is a 84 year old M with multiple comorbidities including recent diagnosis of left lung cancer after VATS/thoracotomy pleural biopsy, adenocarcinoma in [facility] by Dr. Nelson in January 2020 came to ED with acute on chronic shortness of breath and found to be in A. fib with RVR. Overall clinical assessment was consistent with acute respiratory insufficiency secondary to left lower atelectasis, effusion and possible pneumonia along with A. fib with RVR 1. Acute respiratory insufficiency secondary to left lower opacity probably secondary to effusion, atelectasis and left lower lobe pneumonia: Patient is being admitted in PCU. COVID PCR is negative. Lactic acid, and LFT normal except albumin 2.4. CRP 150. 8/1: Urinary antigens are negative. Respiratory panel negative. MRSA nasal screen negative. IV antibiotic Zosyn was changed to cefepime for concern of thrombocytopenia. 2. Right interlobar, extending to right lower lobe pulmonary embolism: CTPA was reported as right interlobar artery PE and was started on Lovenox on 04/13 which changed to IV heparin drip as patient platelet count dropped from 100,000- 59,000. Watch CBC. CT also shows volume loss in left hemithorax with a small left pleural effusion and irregular pleural thickening involving the lateral and medial aspect of left pleural space. Evidence of bronchiectasis and consolidation in the left lower lobe. Echo shows EF 70%, RVSP 55 mmHg. Aortic sclerosis but no stenosis. BNP slightly elevated 102 8/: Heparin drip was temporarily held in the morning for severe thrombocytopenia, 36,000. I discussed with Dr. Cote and we agreed on to continue IV heparin drip as patient has right interlobar, RLL pulmonary embolism. Risk and benefit of anticoagulant including bleeding, severe anemia, ICH discussed with the patient and agreed on heparin drip. Repeat CBC after 6 hours start of heparin drip and if it drops below 30,000, will stop heparin drip. Bilateral lower extremity duplex ordered for tomorrow a.m. Consider vascular surgery consult tomorrow a.m. to evaluate for temporary filter. 3. Left lung cancer after VATS pleural biopsy, left posterior lateral thoracotomy: Discussed with Dr. Adam Cote. Patient had VATS pleural biopsy came out to be adenocarcinoma and [facility] by Dr. Nelson. Patient had left posterior thoracotomy with evacuation of loculated effusion and total decortication on January 2020. Pleural fluid cytology positive of adenocarcinoma 3. Pancytopenia: WBC count 1.5 thousand, ANC 500, H&H 10.7/33 and platelet count 100,000. Antiplatelet/anticoagulant contraindicated. D-dimer high 7.92. On Neupogen Acute anemia on anemia of chronic disease secondary to anticoagulant with history of lung cancer, chemotherapy. 04/15: WBC count 1.7 thousand, ANC 0.6 thousand. H&H dropped from 10.7-8.1. Platelet count dropped from 100,000-36,000. 4. Coronary artery disease status post stents A. fib with RVR: Converted to normal sinus rhythm after 20 mg IV Cardizem. Serial troponin enzymes. 2D echo ordered. Patient has history of coronary artery disease and 2 stents in early 1999. Denies any recent DE or chest pain at rest or exertion. 5. Other comorbidities include dyslipidemia, diverticulitis of large intestine, chronic vertigo: Home medication reconciliation done. Living will/advanced directive/end of life care: Full code. Total time of the visit including total time spent in counseling or coordination of care, (more than 50% of the total time, spent in obtaining medical information from nurses and other ancillary care providers), discussion with qa consultant, it audit manager and oncologist, review of labs and imaging is 30 minutes. Clinical Impression(s) from Imaging Studies Chest X-Ray 04/13/20 05:55 IMPRESSION: Left basilar opacity, possibly pneumonia, aspiration pneumonia and/or atelectasis. Correlation with clinical findings and follow-up recommended. Left pleural fluid versus pleural thickening. at 0636 Reported and signed by: Vicki Edouard MD Electronically Signed: Vicki Edouard MD at 6:36 EDT Tel , Service support , Chest CTA 04/13/20 06:42 IMPRESSION: Pulmonary emboli seen in the right interlobar pulmonary artery as well as in the right lower lobe pulmonary arterial branches. Small left pleural effusion with diffuse left pleural thickening and volume loss in the left hemithorax. Inpatient E&M: [id number] [facility]
[2020-04-15] MEDS: 0.9% Saline Lock 10 ML Syringe IV ×2 (07:25→08:13)
[2020-04-15] MEDS: Gabapentin 100 MG Capsule 200 MG PO ×3 (08:11→16:37)
[2020-04-15] MEDS: Potassium Chloride 10mEq/100mL 10 MEQ/100 ML IV.SOLN. 100 MEQ IV BOLUS (08:56)
[2020-04-15] MEDS: Pioglitazone Hydrochloride 30 MG Tablet PO (09:04)
[2020-04-15] MEDS: guaiFENesin 1,200 MG Tablet 1200 MG PO ×2 (09:04→21:35)
[2020-04-15] MEDS: Metoprolol Tartrate 50 MG Tablet PO ×2 (09:05→21:35)
[2020-04-15 09:30] LABS: Partial Thromboplast Time 37.6 Seconds (24.1-36.2)
[2020-04-15] MEDS: Potassium Chloride 10mEq/100mL 10 MEQ/100 ML IV.SOLN. 70 MEQ IV BOLUS ×3 (10:15→12:58)
[2020-04-15] MEDS: Mag Hydrox/Al Hydrox/Simeth 30 ML UDC PO (10:47)
[2020-04-15] MEDS: TBO-FILGRASTIM 300 MCG/0.5 ML ML SC (10:57)
[2020-04-15 15:50] LABS: Absolute Neutrophil Count 0.7 X10^3/uL (2.0-7.7); Basophil# 0.01 X10^3/uL; Basophil% 0.6 % (0-1); Eosinophil# 0.04 X10^3/uL; Eosinophils% 2.5 % (0-5); Hematocrit 25.1 % (40-54); Lymphocyte % 43.5 % (19-41); Mean Corp Hgb Conc 31.9 g/dL (32-36); Mean Corpuscular Hgb 27.2 pg (27.0-32.0); Mean Corpuscular Volume 85.4 fL (80-94); Mean Platelet Vol. 11.1 fl (6.2-12.0); Monocyte# 0.11 X10^3/uL; Monocyte% 6.8 % (0-10); NRBC Flagged by Analyzer 0 % (0-5); Neutrophil # 0.72 X10^3/uL (2.7-7.7); Neutrophil % 44.7 % (47-70); POSITIVE COUNT YES; POSITIVE DIFFERENTIAL YES; POSITIVE MORPHOLOGY YES; RBC Distribution Width CV 18.2 % (11.6-14.6); RBC Distribution Width SD 55.9 fl (35.1-43.9); Red Blood Count 2.94 M/mm3 (4.6-6.2); White Blood Count 1.6 K/mm3 (4.4-11.0)
--- NOTE | 2020-04-15 15:50 | CON.PCM_ITS ---
- Problem List (1) Pulmonary embolism Status: Acute Qualifiers: Pulmonary embolism type: other Chronicity: acute Acute cor pulmonale presence: without acute cor pulmonale Qualified Code(s): I26.99 - Other pulmonary embolism without acute cor pulmonale (2) Thrombocytopenia Status: Acute Consult Referring Physician: Mehran Subjective Chief Complaint: Shortness of Breath, Chest Palpitations History of Present Illness: HPI: The patient is an 84-year-old male with a past medical history significant for?DM2?(peripheral neuropathy), mixed hyperlipidemia, essential hypertension, ?AAA, hearing loss, stage III chronic kidney disease, diverticulosis,?PVD? (bilateral carotid artery disease) and vertigo. ? He was evaluated 09/02/2019 for complaint of left upper quadrant pain that was made worse with taking a deep breath. Chest x-ray evidently showed parenchymal consolidation in the left lower lobe with associated pleural effusion. Cough started to worsen about 10 days later and he was seen at urgent care. He was given a prescription for Augmentin and Z-Luis. A chest x-ray on 09/20/2019 demonstrated increased opacification left lower hemithorax and a CT chest was obtained. ? CT chest 09/26/2019: Lung parenchyma and pleura: ?There is a [id number] left-sided pleural effusion. ?Associated volume loss and atelectasis seen within the lingula and left lower lobe. ?A few calcified granulomas are incidentally seen. ?Mild reticulation is seen within the periphery of the lungs and lower lobes, bilaterally, suggesting early interstitial lung disease. ?? There is mild emphysema with mild, diffuse bronchiectasis. ?There is no right-sided pleural effusion. ?There is no pneumothorax or endobronchial lesion. Thoracic inlet, heart, and mediastinum: ?There are prominent, less than 1 cm mediastinal lymph nodes, likely reactive. ?There are calcified mediastinal and right perihilar lymph nodes from remote granulomatous disease. ?No emily axillary or hilar lymphadenopathy is identified. ?? Atherosclerotic calcifications are present within the thoracic aorta and coronary arteries. ?The heart is normal in size, and there is no significant pericardial effusion. ?A tiny hiatal hernia. ?Prominent distal paraesophageal lymph nodes are likely reactive. Bones and soft tissues: ?There is scoliosis, osteopenia, and multilevel degenerative change with thoracic spine. ?There is no destructive bony lesion. ?There is diffuse idiopathic skeletal hyperostosis. Upper abdomen: ?There is mild, nonspecific bilateral perinephric fat stranding. ?There is a left renal parapelvic cysts. ?The gallbladder is relatively collapsed but is otherwise unremarkable. ? Underwent thoracentesis on 11/07/2019. 1.2 L of clear straw-colored fluid was removed. ? Ultimately required left VATS with left posterior lateral thoracotomy along with evacuation loculated pleural effusion and total decortication a left lung on 01/31/2020 for recurrent pleural effusion. ? Pathology: FINAL DIAGNOSIS: A) PLEURAL EXUDATE, EXCISION - FRAGMENTS OF FIBROUS TISSUE WITH ATTACHED FIBRINOUS MATERIAL AND FRAGMENTS OF BENIGN ADIPOSE TISSUE. B) PLEURAL RIND, EXCISION - ADENOCARCINOMA. ?SEE COMMENT. ? CT A/P 02/17/2020: 1. ?No mass or lymphadenopathy in the abdomen or pelvis 2. ?Small distal abdominal aortic aneurysm 3. ?Loculated left pleural effusion and left pleural thickening. ?There are some bubbles of gas in the pleural effusion which may be due to the recent thoracotomy and chest tube removal. 4. ?Small consolidation in the left lower lobe. ? PET 03/01/2020: 1. ?HEAD and NECK: No evidence of focal uptake to suggest FDG avid neoplastic process. 2. ?CHEST: Diffuse pleural thickening with small loculated pleural effusion associated with focal increased FDG uptake, metastasis not excluded. ? Mediastinal mildly FDG avid lymph nodes could be reactive or metastases. 3. ?ABDOMEN/PELVIS: No evidence of focal uptake to suggest FDG avid neoplastic process.. 4. ?EXTREMITIES/SKELETON: ?No evidence of focal uptake to suggest FDG avid neoplastic process. ? Head and Neck: ?No evidence of focal uptake to suggest FDG avid neoplastic process. No significant anatomical abnormality to the limits of low dose noncontrast CT scan. Chest: ?Postsurgical changes with left thoracotomy. ?There is diffuse pleural thickening with small loculated pleural effusion. There is increased FDG uptake throughout the thickened pleura. ?For example, focal thickening in the visualized pleural of left lung base is measuring 5.4 x 1.9 cm with max SUV 6.8. ?There is trapped air within the small left pleural effusion. There is small paratracheal, prevascular hilar lymph nodes with mildly increased FDG uptake, which could be reactive or metastases. ?For example, a 1.9 x 1.6 cm left paratracheal lymph node with max SUV 4.8. ??Another example of 1.5 x 0.8 cm right paratracheal lymph node with max SUV 3.7. Abdomen and Pelvis: ?No evidence of focal uptake to suggest FDG avid neoplastic process. Colonic diverticulosis. ?Focal uptake in the sigmoid colon without associated CT abnormality, probably physiological. Extremities/Skeleton: ?No evidence of focal uptake to suggest FDG avid neoplastic process. Postsurgical changes left posterior chest wall with partial rib resection. Received first cycle of carbo/pemetrexed/pembrolizumab 04/05/2020. Was in office two days this past week for hydration. Came to ED Thursday am for acute onset dyspnea. CTA chest results noted. Admitted for AC. Platelets decreased. Currently on IVUH gtt. Still some dyspnea at rest. Also on empiric broad spectrum antibiotics with cefepime for possible pneumonia. Denies chest pain and pressure. No frequent cough. No h/o hemoptysis. No epistaxis, gingival bleeding or rectal bleeding. Three watery BMs today. Past Medical History: Chronic Problems Vertigo (Chronic) Hyperlipidemia (Chronic) Coronary artery disease (Chronic) Past Medical/Surgical History: Past Medical History - Most Recent Inpatient Visit Past Medical History Start: 04/13/20 08:08 Text: Status: Complete Freq: ONCE Protocol: Document 04/13/20 08:08 (Rec: 04/13/20 08:24 [id number]) BMI Required to complete PMH What is Patient's BMI 21.1 Past Medical History Unable History Recalled Yes Query Text:Pt Unable/Family Not Present Neurologic Medical History Hx Stroke/TIA No Hx Dementia/Alzheimer's No Hx Parkinson's Disease No Hx Seizures No Hx Multiple Sclerosis No Hx Migraines No Cardiac Medical History VTE Present on Admission No Hx of Deep Vein Thrombosis/VTE/PE No Hx Hypertension Yes Hx Chest Pain/Angina No Hx Heart Attack No Hx Cardiac Surgery/Stents/Etc. Yes: STENTS Hx Irregular Heartbeat and/or Afib No Hx Anticoagulant Therapy Yes: Aspirin Query Text:(Coumadin, Aspirin, Plavix, Xarelto, etc.) Hx Pain in Legs when Walking/Leg Cramps No Respiratory Medical History Hx COPD No Hx Emphysema No Hx Smoking Yes: CIGAR OCC, QUIT 45 YRS AGO SMOKED 25 YRS Smoking Status Former smoker Tobacco Use Non-smoker Hx Smoking Cessation Date 09/14/74 Hx Smoking Cessation Counseling No Hx Smoking Exposure No Hx Tobacco Use in last 12 months No Hx of Pipe Smoking No Hx Sleep Apnea No CPAP No BIPAP No Do you snore loudly (louder than talking No or can be heard through closed doors)? Do you often feel tired/ fatigued/ No sleepy during daytime? Has anyone observed you stop breathing No during sleep? STOP Results Negative GI Medical History Hx Ulcer No Hx Hepatitis No Hx Cirrhosis No Hx GI Bleed No Hx Unplanned Weight Loss No Genitourinary Medical History Indwelling Catheter in Place on Arrival/ No Admission Hx Renal Disease No Hx Dialysis No Musculoskeletal History Hx Arthritis Yes Hx Rheumatoid Arthritis No Endocrine Medical History Hx Diabetes Yes: ACTOS Hx Thyroid Disease No Hematologic Medical History Hx of Blood Transfusion No Hx of Transfusion in last 3 Months No Ever experience any problems with No transfusion(s)? 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 No Methicillin Resistant Staphylococcus aureus Screening Active MRSA No Risk for Readmission Number of Risk Factors 3 At Risk for Readmission Patient is At Risk For Readmission Patient is eligible for Call Back Y Maternal Family History: No pertinent history - Social History Smoking Status: Former smoker Tobacco Use: Non-smoker Allergies/Adverse Reactions: Allergy/AdvReac Type Severity Reaction Status Date / Time prednisone Allergy Rash Verified 04/13/20 05:39 Vital Signs Temperature 97.9 F 04/15/20 14:30 Temperature Source Oral 04/15/20 14:30 Pulse Rate 77 04/15/20 15:00 Pulse Strength Normal (2+) 04/15/20 08:19 Respiratory Rate 16 04/15/20 14:30 Respiratory Effort Non-Labored 04/15/20 14:00 Respiratory Depth Normal 04/15/20 14:00 Respiratory Pattern Normal 04/15/20 14:00 Blood Pressure 135/56 H 04/15/20 14:30 Blood Pressure Mean 82 04/15/20 14:30 Blood Pressure Source Monitor 04/15/20 14:30 Blood Pressure Position Semi-Fowlers 04/15/20 14:30 Blood Pressure Location Left Arm 04/15/20 14:30 Pulse Ox 97 04/15/20 14:30 Oxygen Delivery Method Room Air 04/15/20 14:30 Oxygen Flow Rate (L/min) 2 04/13/20 13:29 - Physical Exam General: Alert, Oriented x3 Oropharynx:: - - There are upper and lower plates. No sign of gingical or buccal bleeding/petechiae. Cardiac:: Regular rhythm Lungs: Normal air movement Abdomen:: Soft - Some generalized mild tenderness. Extremities:: - - No swelling or edema. Laboratory Data: Microbiology 04/13/20 08:52 Blood Culture - Preliminary Blood Culture (Wb) - Right Hand No growth in 48 hours. 04/13/20 08:52 Blood Culture - Preliminary Blood Culture (Wb) - Anticubital Left No growth in 48 hours. 04/13/20 21:20 Streptococcus pneumoniae Antigen (M - Final Urine, Clean Catch 04/13/20 21:20 Legionella Antigen - Final Urine, Clean Catch 04/13/20 10:45 Respiratory Panel (PCR) - Final Mucosa - Nose Laboratory Tests 04/15/20 04/15/20 04/15/20 Range/Units 09:14 05:55 03:15 WBC 1.7 L (4.4-11.0) K/mm3 RBC 3.02 L (4.6-6.2) M/mm3 Hgb 8.1 L (13.0-16.5) g/dL Hct 25.7 L (40-54) % MCV 85.1 (80-94) fL MCH 26.8 L (27.0-32.0) pg MCHC 31.5 L (32-36) g/dL RDW Std Deviation 57.0 H (35.1-43.9) fl RDW Coeff of Sinan 18.3 H (11.6-14.6) % Plt Count 36 L* (150-450) K/mm3 MPV 10.5 (6.2-12.0) fl Immature Gran % (Auto) 1.200 H (0.0-0.9) % Neut % (Auto) 36.1 L (47-70) % Lymph % (Auto) 51.5 H (19-41) % [place] % (Auto) 5.3 (0-10) % Eos % (Auto) 5.3 H (0-5) % Baso % (Auto) 0.6 (0-1) % Absolute Neuts (auto) 0.6 L (2.0-7.7) X10^3/uL Absolute Lymphs (auto) 0.88 (0.83-4.51) X10^3/uL Nucleated RBC % 0 (0-5) % Differential Comment SCANNED Diff Path Review May foll Platelet Estimate MKD DEC (ADEQ) APTT 37.6 H (24.1-36.2) Seconds Sodium 137 (136-145) mmol/L Potassium 3.2 L (3.5-5.1) mmol/L Chloride 107 (98-107) mmol/L Carbon Dioxide 23.0 (21.0-32.0) mmol/L Anion Gap 7 (5-15) BUN 19 H (7-18) mg/dL Creatinine 0.84 (0.70-1.30) mg/dL Estim Creat Clear Calc 61.17 ml/min Est GFR (MDRD) Af Amer 112 (>60) mL/min Est GFR (MDRD) Non-Af 93 (>60) mL/min BUN/Creatinine Ratio 22.6 H (10-20) RATIO Glucose 100 (74-106) mg/dL Calcium 7.8 L (8.5-10.1) mg/dL 04/15/20 04/15/20 04/14/20 Range/Units 03:15 03:15 18:05 WBC 1.8 L (4.4-11.0) K/mm3 RBC 3.09 L (4.6-6.2) M/mm3 Hgb 8.3 L (13.0-16.5) g/dL Hct 26.1 L (40-54) % MCV 84.5 (80-94) fL MCH 26.9 L (27.0-32.0) pg MCHC 31.8 L (32-36) g/dL RDW Std Deviation 55.1 H (35.1-43.9) fl RDW Coeff of Sinan 18.1 H (11.6-14.6) % Plt Count 38 L* (150-450) K/mm3 MPV 9.8 (6.2-12.0) fl Immature Gran % (Auto) 1.100 H (0.0-0.9) % Neut % (Auto) 39.3 L (47-70) % Lymph % (Auto) 48.9 H (19-41) % [place] % (Auto) 5.6 (0-10) % Eos % (Auto) 4.5 (0-5) % Baso % (Auto) 0.6 (0-1) % Absolute Neuts (auto) 0.7 L (2.0-7.7) X10^3/uL Absolute Lymphs (auto) 0.87 (0.83-4.51) X10^3/uL Nucleated RBC % 0 (0-5) % Differential Comment SCANNED Diff Path Review May foll Platelet Estimate MKD DEC (ADEQ) APTT 70.4 H 133.1 H* (24.1-36.2) Seconds Sodium (136-145) mmol/L Potassium (3.5-5.1) mmol/L Chloride (98-107) mmol/L Carbon Dioxide (21.0-32.0) mmol/L Anion Gap (5-15) BUN (7-18) mg/dL Creatinine (0.70-1.30) mg/dL Estim Creat Clear Calc ml/min Est GFR (MDRD) Af Amer (>60) mL/min Est GFR (MDRD) Non-Af (>60) mL/min BUN/Creatinine Ratio (10-20) RATIO Glucose (74-106) mg/dL Calcium (8.5-10.1) mg/dL Diagnostic Data: Diagnostic Data Chest X-Ray 04/13/20 05:55 IMPRESSION: Left basilar opacity, possibly pneumonia, aspiration pneumonia and/or atelectasis. Correlation with clinical findings and follow-up recommended. Left pleural fluid versus pleural thickening. at 0636 Reported and signed by: Vicki Edouard MD Electronically Signed: Vicki Edouard MD at 6:36 EDT Tel , Service support , Chest CTA 04/13/20 06:42 IMPRESSION: Pulmonary emboli seen in the right interlobar pulmonary artery as well as in the right lower lobe pulmonary arterial branches. Small left pleural effusion with diffuse left pleural thickening and volume loss in the left hemithorax. Electronically Signed: Jabari Page, at 8:08 EDT , Service support , Assessment and Plan 1) Pulmonary emboli. Assessment: -CTA images personally reviewed. Rather extensive emboli. -Echocardiogram results noted. -Situation complicated by severe thrombocytopenia. -No bleeding issues though. -Subjectively short of breath at rest. -Risk/benefit analysis favors anticoagulation--Platelet count now 28K Plan: -Stop IV unfractionated heparin and start half-dose anticoagulant dose Lovenox. Further increase to full anticoagulant dosing tomorrow pending plt count. -Doppler US legs tomorrow to assess for DVT. -Potential IVC filter if plts decline below 25K. 2) Acute thrombocytopenia. Assessment: -Normal plt count at start of therapy. -Unlikely to have HIT. Plan: -Monitor plt count. 3) Neutropenia secondary to chemotherapy. Assessment: -Afebrile throughout hospitalization. Plan: -Continue filgrastim support. Medications: Prescriptions This Visit Medication Instructions Recorded Acetaminophen [Tylenol Extra 500 mg PO Q6H PRN PRN 04/14/20 Strength] Aspirin E.C. [Ecotrin] 81 mg PO DAILY@0800 04/14/20 Esomeprazole Mag Trihydrate 20 mg PO DAILY 04/14/20 [Nexium] Folic Acid 1 mg PO DAILY 04/14/20 Gabapentin [Neurontin] 200 mg PO TID 04/14/20 Oxycodone [Oxyir] 5 mg PO Q6H PRN PRN 04/14/20 Promethazine HCl 25 mg PO Q6H PRN 04/14/20 Pseudoephed/Acetaminophen/Cpm 1 tab PO DAILY 04/14/20 [Allergy Sinus-D Caplet] Rosuvastatin Calcium [Crestor] 40 mg PO DAILY 04/14/20 Medications Added to Medication List This Visit Category Date Time Status Gabapentin [Neurontin] Med 04/15/20 08:00 Active 200 mg PO TIDCM Primary Care Provider: Dr. Jack Schaffer MD Referring Provider:
[2020-04-15 15:51] LABS: Differential Indicated SCAN CRITERIA MET
[2020-04-15 15:52] LABS: Platelet Count 28 K/mm3 (150-450)
[2020-04-15 15:54] LABS: Partial Thromboplast Time 50.5 Seconds (24.1-36.2)
[2020-04-15 16:25] LABS: Differential Comment SCANNED; Platelet Estimate MKD DEC (ADEQ)
[2020-04-15] MEDS: 0.9% Normal Saline 1,000 ML 50 ML IV (16:34)
[2020-04-15] MEDS: Enoxaparin 30 MG/0.3 ML Syringe SC (18:02)
[2020-04-15] MEDS: Atorvastatin Calcium 20 MG Tablet PO (21:35)
[2020-04-16] VITALS (15 sets, daily range): BP systolic 117–136; BP diastolic 61–81; PULSE 68–90; RESP 16–20; TEMP 36.6–37.2; O2SAT 93–99; BMI 21.3
[2020-04-16] MEDS: Ondansetron 4 MG/2 ML Vial IV ×2 (02:52→11:53)
[2020-04-16 05:06] LABS: Absolute Lymphocyte Count 0.78 X10^3/uL (0.83-4.51); Absolute Neutrophil Count 0.7 X10^3/uL (2.0-7.7); Basophil# 0.02 X10^3/uL; Basophil% 1.2 % (0-1); Eosinophil# 0.06 X10^3/uL; Eosinophils% 3.5 % (0-5); Hematocrit 24.2 % (40-54); Hemoglobin 7.7 g/dL (13.0-16.5); Lymphocyte # 0.78 X10^3/ul (4.0); Lymphocyte % 45.3 % (19-41); Mean Corp Hgb Conc 31.8 g/dL (32-36); Mean Corpuscular Volume 84.9 fL (80-94); Mean Platelet Vol. 9.4 fl (6.2-12.0); Monocyte# 0.12 X10^3/uL; NRBC Flagged by Analyzer 0 % (0-5); Neutrophil # 0.69 X10^3/uL (2.7-7.7); Neutrophil % 40.1 % (47-70); POSITIVE COUNT YES; POSITIVE DIFFERENTIAL YES; POSITIVE MORPHOLOGY YES; Platelet Count 20 K/mm3 (150-450); RBC Distribution Width CV 18.1 % (11.6-14.6); RBC Distribution Width SD 55.8 fl (35.1-43.9); Red Blood Count 2.85 M/mm3 (4.6-6.2); White Blood Count 1.7 K/mm3 (4.4-11.0)
[2020-04-16 05:07] LABS: Differential Indicated SCAN CRITERIA MET
[2020-04-16 05:23] LABS: ALB/GLOB Ratio 0.6 RATIO (0.9-2.4); AST(SGOT) 28 U/L (15-37); Alanine Aminotransfer ALT/SGPT 35 U/L (16-61); Alkaline Phosphatase 77 U/L (45-117); Anion Gap 5 (5-15); BUN 15 mg/dL (7-18); BUN/Creat Ratio 19.9 RATIO (10-20); Calcium,Total 7.9 mg/dL (8.5-10.1); Chloride 107 mmol/L (98-107); Creatinine, Serum 0.76 mg/dL (0.70-1.30); EST Glomerular Filtration Rate 105 mL/min (>60); Est Glom Filt Rate - Afr Amer 127 mL/min (>60); Estimated Creatinine Clearance 51.78 ml/min; Globulin 3.6 g/dL (2.2-4.2); Glucose 99 mg/dL (74-106); Potassium 3.4 mmol/L (3.5-5.1); Protein, Total 5.6 g/dL (6.4-8.2); Sodium Level 134 mmol/L (136-145)
[2020-04-16 05:26] LABS: Differential Comment SCANNED; Platelet Estimate MKD DEC (ADEQ)
[2020-04-16] MEDS: proMETHazine 25 MG/ML Syringe 12.5 MG IV ×2 (05:35→14:40)
[2020-04-16] MEDS: Ipratropium/Albuterol Sulfate 3 ML AMPUL.NEB INHALATION ×2 (07:31→19:25)
[2020-04-16] MEDS: Gabapentin 100 MG Capsule 200 MG PO ×3 (08:49→16:48)
[2020-04-16 09:14] LABS: Magnesium 1.9 mg/dL (1.6-2.6)
--- NOTE | 2020-04-16 09:29 | CON.PCM_ITS ---
Problem List (1) Pulmonary embolism Status: Acute Qualifiers: Pulmonary embolism type: other Chronicity: acute Acute cor pulmonale presence: without acute cor pulmonale Qualified Code(s): I26.99 - Other pulmonary embolism without acute cor pulmonale (2) Thrombocytopenia Status: Acute Reason for Consult Date of Consultation: 04/16/20 History of Present Illness: The patient is a 84 year old M who I have been asked to see by Dr. Nassar and a electronic copy will be present in his charting. Is an 84-year-old gentleman. He has documented multiple emboli right lower lobe of the lung. Left lung cancer. Left pleural effusion. He received chemotherapy 2 weeks ago under the direction of Dr. Adam Cote. Currently he has progressive thrombocytopenia with platelet count now of only 20,000. He is no longer felt to be a candidate for pharmacologic anticoagulation. He has been receiving both heparin and Lovenox therapy. A request has been made for placement of an inferior vena cava filter. Past Medical History Past Medical History (Chronic Problems): Chronic Problems Vertigo (Chronic) Hyperlipidemia (Chronic) Coronary artery disease (Chronic) Allergies prednisone Allergy (Verified 04/13/20 05:39) Rash Home Medications: Ambulatory Orders Medication Instructions Recorded Metoprolol Tartrate [Lopressor 50 mg PO BID 07/27/14 (beta nella)] Simvastatin [Zocor] 40 mg PO QHS 07/27/14 Cholecalciferol (Vitamin D3) 2,000 unit PO DAILY 09/11/15 [D3-2000] Gluc Brady/Chondro Brady A/Vit C/Mn 1 each PO DAILY 01/31/16 [Glucosamine 1,500 Complex Cp] Pioglitazone [Actos] 30 mg PO DAILY 01/31/16 Acetaminophen [Tylenol Extra 500 mg PO Q6H PRN PRN 04/14/20 Strength] Aspirin E.C. [Ecotrin] 81 mg PO DAILY@0800 04/14/20 Esomeprazole Mag Trihydrate 20 mg PO DAILY 04/14/20 [Nexium] Folic Acid 1 mg PO DAILY 04/14/20 Gabapentin [Neurontin] 200 mg PO TID 04/14/20 Oxycodone [Oxyir] 5 mg PO Q6H PRN PRN 04/14/20 Promethazine HCl 25 mg PO Q6H PRN 04/14/20 Pseudoephed/Acetaminophen/Cpm 1 tab PO DAILY 04/14/20 [Allergy Sinus-D Caplet] Rosuvastatin Calcium [Crestor] 40 mg PO DAILY 04/14/20 Surgical History: no surgical history, - - Stent placement Smoking Status: Former smoker Tobacco Use: Non-smoker - *Family History Maternal History Items: No pertinent history Review of Systems Cardiovascular: Denies: Chest Pain Respiratory: Reports: Shortness of Breath Patient Problems: Active and Suspected Problems Cancer of left lung (Acute) Left pleural effusion (Acute) Atrial fibrillation with RVR (Acute) Acute respiratory insufficiency (Acute) Pulmonary embolism (Acute) Thrombocytopenia (Acute) - Physical Exam Vitals/I&O's: Vital Signs Temp Pulse Resp BP Pulse Ox 98.3 F 90 18 132/70 H 99 04/16/20 08:45 04/16/20 08:45 04/16/20 08:45 04/16/20 08:45 04/16/20 08:45 Oxygen Flow Rate (L/min) 2 Oxygen Delivery Method Room Air Weight: 144 lb 9.972 oz Body Mass Index (BMI) 21.1 Finger Stick Blood Glucose 121 Intake and Output for Last 24 Hours 04/14/20 04/15/20 04/16/20 23:59 23:59 23:59 Intake Total 2110.43 / 2110.43 2671.08 / 2671.08 482.5 / 482.5 Balance 2110.43 / 2110.43 2671.08 / 2671.08 482.5 / 482.5 General: Alert, Oriented x3, Cooperative, - - Markedly hard of hearing Abdomen: Bowel Sounds Present, Soft, Non Tender Microbiology Past 72 Hours 04/13/20 08:52 Blood Culture (Wb) - Right Hand Blood Culture - Preliminary No growth in 48 hours. 04/13/20 08:52 Blood Culture (Wb) - Anticubital Left Blood Culture - Preliminary No growth in 48 hours. 04/13/20 21:20 Urine, Clean Catch Streptococcus pneumoniae Antigen (M - Final 04/13/20 21:20 Urine, Clean Catch Legionella Antigen - Final 04/13/20 10:45 Mucosa - Nose Respiratory Panel (PCR) - Final Laboratory Results 04/15/20 09:14: APTT 37.6 H 04/15/20 15:25: WBC 1.6 L, RBC 2.94 L, Hgb 8.0 L, Hct 25.1 L, MCV 85.4, MCH 27.2, MCHC 31.9 L, RDW Std Deviation 55.9 H, RDW Coeff of Sinan 18.2 H, Plt Count 28 L*, MPV 11.1, Immature Gran % (Auto) 1.900 H, Neut % (Auto) 44.7 L, Lymph % (Auto) 43.5 H, [place] % (Auto) 6.8, Eos % (Auto) 2.5, Baso % (Auto) 0.6, Absolute Neuts (auto) 0.7 L, Absolute Lymphs (auto) 0.70 L, Nucleated RBC % 0, Differenti al Comment SCANNED, Diff Path Review January, Platelet Estimate [facility] 04/15/20 15:25: APTT 50.5 H 04/16/20 04:58: WBC 1.7 L, RBC 2.85 L, Hgb 7.7 L, Hct 24.2 L, MCV 84.9, MCH 27.0, MCHC 31.8 L, RDW Std Deviation 55.8 H, RDW Coeff of Sinan 18.1 H, Plt Count 20 L*, MPV 9.4, Immature Gran % (Auto) 2.900 H, Neut % (Auto) 40.1 L, Lymph % (A uto) 45.3 H, [place] % (Auto) 7.0, Eos % (Auto) 3.5, Baso % (Auto) 1.2 H, Absolute Neuts (auto) 0.7 L, Absolute Lymphs (auto) 0.78 L, Nucleated RBC % 0, Differential Comment SCANNED, Platelet Estimate [facility] 04/16/20 04:58: Sodium 134 L, Potassium 3.4 L, Chloride 107, Carbon Dioxide 22.0, Anion Gap 5, BUN 15, Creatinine 0.76, Estim Creat Clear Calc 51.78, Est GFR (MDRD) Af Amer 127, Est GFR (MDRD) Non-Af 105, BUN/Creatinine Ratio 19.9, Glucose 99, Calcium 7.9 L, Total Bilirubin 0.50, AST 28, ALT 35, Alkaline Phosphatase 77, Total Protein 5.6 L, Albumin 2.0 L, Globulin 3.6, Albumin/Globulin Ratio 0.6 L 04/16/20 05:00: Magnesium 1.9 Current Medications Acetaminophen (Tylenol) 650 mg PO Q6H PRN PRN PRN Reason: Pain Score 1-10/Temp > 100.7 F Al Hydroxide/Mg Hydroxide (Mylanta Ii) 30 ml PO Q6H PRN PRN PRN Reason: Gastric Burning Last Admin: 04/15/20 10:47 Dose: 30 ml Documented by: Albuterol Sulfate (Ventolin Aerosols) 2.5 mg INHALATION Q2H PRN PRN PRN Reason: SOB/Wheezing Albuterol/Ipratropium (Duoneb) 3 ml INHALATION Q6H.RT [facility] Last Admin: 04/16/20 07:31 Dose: 3 ml Documented by: Atorvastatin Calcium (Lipitor) 20 mg PO QHS [facility] Last Admin: 04/15/20 21:35 Dose: 20 mg Documented by: Dextrose (D50w Syringe) 0 gm IV X1 PRN; Protocol PRN Reason: Hypoglycemia Gabapentin (Neurontin) 200 mg PO TIDCM [facility] Last Admin: 04/16/20 08:49 Dose: 200 mg Documented by: Glucagon () 1 mg IM .X1 PRN PRN Reason: Hypoglycemia Guaifenesin (Mucinex) 1,200 mg PO BID [facility] Last Admin: 04/15/20 21:35 Dose: 1,200 mg Documented by: Sodium Chloride () 1,000 mls @ 50 mls/hr IV .Q20H [facility] Last Infusion: 04/16/20 06:02 Dose: 50 mls/hr Documented by: Cefepime HCl 1 gm/ Sodium (Chloride) 50 mls @ 100 mls/hr IV Q8 [facility] Last Infusion: 04/16/20 06:02 Dose: Infused Documented by: Sodium Chloride () 250 mls @ 15 mls/hr IV .[id number] PRN PRN Reason: Saline Flush Last Infusion: 04/14/20 22:46 Dose: Infused Documented by: Sodium Chloride () 250 mls @ 15 mls/hr IV .[id number] PRN PRN Reason: Additional IVPB Infusion Metoprolol Tartrate (Lopressor (Beta Nella)) 50 mg PO BID [facility] Last Admin: 04/15/20 21:35 Dose: 50 mg Documented by: Morphine Sulfate () 2 mg IV Q3H PRN PRN PRN Reason: Pain Score 6-10/10 Nitroglycerin (Nitrostat) 0.4 mg SUBLINGUAL Q5M PRN PRN Reason: CARDIAC/CHEST PAIN Nutritional Formula (Lactose Free) (Ensure Enlive) 120 ml PO 4X/DAY [facility] Last Admin: 04/15/20 21:35 Dose: 120 ml Documented by: Ondansetron HCl (Zofran) 4 mg IV Q6H PRN PRN PRN Reason: NAUSEA/VOMITING Last Admin: 04/16/20 02:52 Dose: 4 mg Documented by: Oxycodone HCl (Oxyir) 5 mg PO Q4H PRN PRN PRN Reason: Pain Score 4-5/10 Last Admin: 04/14/20 21:36 Dose: 5 mg Documented by: Pioglitazone HCl (Actos) 30 mg PO DAILY [facility] Last Admin: 04/15/20 09:04 Dose: 30 mg Documented by: Promethazine HCl (Phenergan) 12.5 mg IV Q6H PRN PRN PRN Reason: Breakthrough Nausea/Vomiting Last Admin: 04/16/20 05:35 Dose: 12.5 mg Documented by: Senna/Docusate Sodium (Senokot-S, Kylie-Colace) 2 tablet PO BID PRN PRN PRN Reason: Constipation Sodium Chloride () 10 - 40 ml IV UD PRN PRN Reason: SALINE FLUSH Last Admin: 04/15/20 08:13 Dose: 10 ml Documented by: Tbo-Filgrastim (Granix) 300 mcg SC DAILY [facility] Last Admin: 04/15/20 10:57 Dose: 300 mcg Documented by: Assessment/Plan All Active Problems Diverticulitis large intestine (Resolved) Cancer of left lung (Acute) Left pleural effusion (Acute) Atrial fibrillation with RVR (Acute) Acute respiratory insufficiency (Acute) Pulmonary embolism (Acute) Thrombocytopenia (Acute) I recommend to the patient a right internal jugular approach for placement of an inferior vena cava filter. I have discussed technique, benefit, risk, alternatives. He has had an opportunity to ask and have questions answered. He is aware that this is a retrievable filter. He is aware that he must participate in assuring that it is removed at the appropriate timeline. He has had an opportunity to ask and have questions answered. It appears that his thrombocytopenia is significantly worsening. I have recommended that we proceed directly before the patient gets to prohibitively low levels. I have spoken to both Dr. Adam Cote and and they are aware that we are pursuing placement. The patient has normal renal function. By report COVID-19 was negative Tim Ba M.D., F.A.C.S.
--- NOTE | 2020-04-16 09:56 | OP.PCM_ITS ---
Problem List (1) Pulmonary embolism Status: Acute Qualifiers: Pulmonary embolism type: other Chronicity: acute Acute cor pulmonale presence: without acute cor pulmonale Qualified Code(s): I26.99 - Other pulmonary embolism without acute cor pulmonale (2) Thrombocytopenia Status: Acute Report of Operation Date of Procedure: 04/16/20 Pre-Operative Diagnosis: Pulmonary emboli with severe thrombocytopenia Post-Operative Diagnosis: Same Surgery/Procedure Performed:: Inferior venacavogram with inferior vena cava Wolfe filter placement Description of Surgical Findings:: Timeout and informed consent was obtained. 84-year-old gentleman was taken to the special procedures lab placed upon the table. Because he had eaten breakfast I elected not to proceed with sedation however the procedure was felt to be urgent to continue his inability to be anticoagulated because of his severe thrombocytopenia. The right neck was sterilely prepped and draped. Ultrasound was used to identify the right internal jugular vein. Under ultrasound guidance 2% lidocaine was instilled as a local anesthetic. A total of 5 cc was used. Under ultrasound guidance a micropuncture needle was inserted in the right internal jugular vein followed by Seldinger wire advancement. Micropuncture sheath was inserted. 035 J-wire was inserted. 5 Setswana short sheath was inserted. 035 J-wire was used to advance a 5 Setswana universal flush catheter into the proximal right common iliac vein. Using Isovue contrast 3 to 15 cc a second for 25 cc an inferior venacavogram was obtained. This demonstrated widely patent bilateral common iliac veins widely patent inferior vena cava of normal diameter. Renal veins were clearly identified. The flush catheter was removed. Dilatation was performed with 9 Setswana sheath. The 8 Setswana delivery mechanism was inserted. The filter was advanced and then deployed so the apex was close to the origin of the renal veins. It appeared to have a minimal tilt but the hook appeared to be in good position. The delivery mechanism was removed. Pressure was held for hemostasis. Sterile dressings applied. He tolerated the procedure well with minimal blood loss no apparent complication. He was taken back to his room in satisfactory condition. Impression normal inferior venacavogram. Successfully placed Ama filter. The patient is well aware that this is a retrievable filter and that he needs to participate in returning for filter removal when it is deemed appropriate by his primary care. Tim Ba M.D., F.A.C.S. Type of Anesthesia:: Local
--- NOTE | 2020-04-16 10:00 | DCINST_ITS ---
Allergies/Adverse Reactions: Allergies prednisone Allergy (Verified 04/13/20 05:39) Rash Medications to take at Discharge Metoprolol Tartrate [Lopressor (beta latrell)] 50 mg PO BID 07/27/14 Simvastatin [Zocor] 40 mg PO QHS 07/27/14 Cholecalciferol (Vitamin D3) [D3-2000] 2,000 unit PO DAILY 09/11/15 Gluc Brady/Chondro Brady A/Vit C/Mn [Glucosamine 1,500 Complex Cp] 1 each PO DAILY 01/31/16 Pioglitazone [Actos] 30 mg PO DAILY 01/31/16 Acetaminophen [Tylenol Extra Strength] 500 mg PO Q6H PRN PRN 04/14/20 Aspirin E.C. [Ecotrin] 81 mg PO DAILY@0800 04/14/20 Esomeprazole Mag Trihydrate [Nexium] 20 mg PO DAILY 04/14/20 Folic Acid 1 mg PO DAILY 04/14/20 Gabapentin [Neurontin] 200 mg PO TID 04/14/20 Oxycodone [Oxyir] 5 mg PO Q6H PRN PRN 04/14/20 Promethazine HCl 25 mg PO Q6H PRN 04/14/20 Pseudoephed/Acetaminophen/Cpm [Allergy Sinus-D Caplet] 1 tab PO DAILY 04/14/20 Rosuvastatin Calcium [Crestor] 40 mg PO DAILY 04/14/20 Primary Care Physician: Jack Schaffer MD [Primary Care Provider] - Test Results: Test results from this visit will be discussed in further detail at your follow- up appointment, if applicable. Please Follow Up With: Tim Ba MD - [phone] When: Notify me when you are cleared for filter removal
[2020-04-16] MEDS: 0.9% Normal Saline 1,000 ML 50 ML IV (10:22)
[2020-04-16] MEDS: guaiFENesin 1,200 MG Tablet 1200 MG PO ×2 (10:27→21:21)
[2020-04-16] MEDS: Pioglitazone Hydrochloride 30 MG Tablet PO (10:27)
[2020-04-16] MEDS: Metoprolol Tartrate 50 MG Tablet PO ×2 (10:49→21:21)
[2020-04-16] MEDS: 0.9% Saline Lock 10 ML Syringe IV (10:49)
[2020-04-16] MEDS: TBO-FILGRASTIM 300 MCG/0.5 ML ML SC (10:50)
[2020-04-16 12:24] LABS: Pathologist Review Reviewed
[2020-04-16 12:25] LABS: Pathologist Review Reviewed
[2020-04-16 12:25] LABS: Pathologist Review Reviewed
[2020-04-16 12:26] LABS: Pathologist Review Reviewed
[2020-04-16 12:26] LABS: Pathologist Review Reviewed
--- NOTE | 2020-04-16 14:02 | PN_ITS ---
Patient Problems: Active and Suspected Problems Cancer of left lung (Acute) Left pleural effusion (Acute) Atrial fibrillation with RVR (Acute) Acute respiratory insufficiency (Acute) Pulmonary embolism (Acute) Thrombocytopenia (Acute) Subjective: Patient did well overnight. Patient remains on room air. Patient did have an IVC filter placed today with no reported complications. Patient with no subjective change compared to yesterday. Did speak with patient's daughter at the bedside. Objective: IVC filter placed today without complication by Dr. Ba - Physical Exam Vitals/I&O's: Vital Signs Temp Pulse Resp BP Pulse Ox 36.8 C 75 18 117/61 97 04/16/20 10:15 04/16/20 11:00 04/16/20 10:15 04/16/20 10:49 04/16/20 10:15 Oxygen Flow Rate (L/min) 2 Oxygen Delivery Method Room Air Weight: 65.6 kg Body Mass Index (BMI) 21.1 Finger Stick Blood Glucose 121 Intake and Output for Last 24 Hours 04/14/20 04/15/20 04/16/20 23:59 23:59 23:59 Intake Total 2110.43 / 2110.43 2671.08 / 2671.08 939.17 / 939.17 Balance 2110.43 / 2110.43 2671.08 / 2671.08 939.17 / 939.17 General: Alert, Oriented x3, Cooperative, No apparent distress, Well developed, Well nourished HEENT: Atraumatic, PERRLA, EOMI, Normocephalic, - - Dressing is clean, dry and intact Oral: Moist Mucosa, No Gingival or Mucosal Lesions/ Ulcerations Neck: Supple, No JVD, No Nodes, Trachea Midline Lungs: No rhonchi, No wheeze, Diminished, Rales - Right base Cardiovascular: Normal S1, Normal S2, Irregular Rate, Murmur, No rub noted, No Gallop Abdomen: Bowel Sounds Present, Soft, Non Tender, Non-Distended Extremities: No clubbing, No cyanosis, No edema Skin: No breakdown Musculoskeletal: No Tenderness to Palpation of Joints or Extremities Lymphatic: No Cervical, Supraclavicular, or Inguinal Adenopathy Neurological: Cranial nerves II-XII grossly intact, Neuro grossly intact, Motor Exam 5/5 strength throughout Psych/Mental Status: Alert and oriented to time, place, person, mood and affect Microbiology Past 72 Hours 04/13/20 08:52 Blood Culture (Wb) - Right Hand Blood Culture - Preliminary No growth in 48 hours. 04/13/20 08:52 Blood Culture (Wb) - Anticubital Left Blood Culture - Preliminary No growth in 48 hours. 04/13/20 21:20 Urine, Clean Catch Streptococcus pneumoniae Antigen (M - Final 04/13/20 21:20 Urine, Clean Catch Legionella Antigen - Final 04/13/20 10:45 Mucosa - Nose Respiratory Panel (PCR) - Final Laboratory Results 04/14/20 06:09: Diff Path Review Reviewed 04/15/20 03:15: Diff Path Review Reviewed 04/15/20 05:55: Diff Path Review Reviewed 04/15/20 15:25: WBC 1.6 L, RBC 2.94 L, Hgb 8.0 L, Hct 25.1 L, MCV 85.4, MCH 27.2, MCHC 31.9 L, RDW Std Deviation 55.9 H, RDW Coeff of Sinan 18.2 H, Plt Count 28 L*, MPV 11.1, Immature Gran % (Auto) 1.900 H, Neut % (Auto) 44.7 L, Lymph % (Auto) 43.5 H, [place] % (Auto) 6.8, Eos % (Auto) 2.5, Baso % (Auto) 0.6, Absolute Neuts (auto) 0.7 L, Absolute Lymphs (auto) 0.70 L, Nucleated RBC % 0, Differential Comment SCANNED, Diff Path Review Reviewed, Platelet Estimate MKD 04/15/20 15:25: APTT 50.5 H 04/16/20 04:58: WBC 1.7 L, RBC 2.85 L, Hgb 7.7 L, Hct 24.2 L, MCV 84.9, MCH 27.0, MCHC 31.8 L, RDW Std Deviation 55.8 H, RDW Coeff of Sinan 18.1 H, Plt Count 20 L*, MPV 9.4, Immature Gran % (Auto) 2.900 H, Neut % (Auto) 40.1 L, Lymph % (Auto) 45.3 H, [place] % (Auto) 7.0, Eos % (Auto) 3.5, Baso % (Auto) 1.2 H, Absolute Neuts (auto) 0.7 L, Absolute Lymphs (auto) 0.78 L, Nucleated RBC % 0, Differential Comment SCANNED, Diff Path Review Reviewed, Platelet Estimate MKD 04/16/20 04:58: Sodium 134 L, Potassium 3.4 L, Chloride 107, Carbon Dioxide 22.0, Anion Gap 5, BUN 15, Creatinine 0.76, Estim Creat Clear Calc 51.78, Est GFR (MDRD) Af Amer 127, Est GFR (MDRD) Non-Af 105, BUN/Creatinine Ratio 19.9, Glucose 99, Calcium 7.9 L, Total Bilirubin 0.50, AST 28, ALT 35, Alkaline Phosphatase 77, Total Protein 5.6 L, Albumin 2.0 L, Globulin 3.6, Albumin/Globulin Ratio 0.6 L 04/16/20 05:00: Magnesium 1.9 Current Medications Acetaminophen (Tylenol) 650 mg PO Q6H PRN PRN PRN Reason: Pain Score 1-10/Temp > 100.7 F Al Hydroxide/Mg Hydroxide (Mylanta Ii) 30 ml PO Q6H PRN PRN PRN Reason: Gastric Burning Last Admin: 04/15/20 10:47 Dose: 30 ml Documented by: Albuterol Sulfate (Ventolin Aerosols) 2.5 mg INHALATION Q2H PRN PRN PRN Reason: SOB/Wheezing Albuterol/Ipratropium (Duoneb) 3 ml INHALATION Q6H.RT [facility] Last Admin: 04/16/20 13:30 Dose: Not Given Documented by: Atorvastatin Calcium (Lipitor) 20 mg PO QHS [facility] Last Admin: 04/15/20 21:35 Dose: 20 mg Documented by: Dextrose (D50w Syringe) 0 gm IV X1 PRN; Protocol PRN Reason: Hypoglycemia Gabapentin (Neurontin) 200 mg PO TIDCM [facility] Last Admin: 04/16/20 11:52 Dose: 200 mg Documented by: Glucagon () 1 mg IM .X1 PRN PRN Reason: Hypoglycemia Guaifenesin (Mucinex) 1,200 mg PO BID [facility] Last Admin: 04/16/20 10:27 Dose: 1,200 mg Documented by: Sodium Chloride () 1,000 mls @ 50 mls/hr IV .Q20H [facility] Last Admin: 04/16/20 10:22 Dose: 50 mls/hr Documented by: Cefepime HCl 1 gm/ Sodium (Chloride) 50 mls @ 100 mls/hr IV Q8 [facility] Last Infusion: 04/16/20 06:02 Dose: Infused Documented by: Sodium Chloride () 250 mls @ 15 mls/hr IV .[id number] PRN PRN Reason: Saline Flush Last Infusion: 04/14/20 22:46 Dose: Infused Documented by: Sodium Chloride () 250 mls @ 15 mls/hr IV .[id number] PRN PRN Reason: Additional IVPB Infusion Metoprolol Tartrate (Lopressor (Beta Nella)) 50 mg PO BID [facility] Last Admin: 04/16/20 10:49 Dose: 50 mg Documented by: Morphine Sulfate () 2 mg IV Q3H PRN PRN PRN Reason: Pain Score 6-10/10 Nitroglycerin (Nitrostat) 0.4 mg SUBLINGUAL Q5M PRN PRN Reason: CARDIAC/CHEST PAIN Nutritional Formula (Lactose Free) (Ensure Enlive) 120 ml PO 4X/DAY [facility] Last Admin: 04/16/20 10:27 Dose: 120 ml Documented by: Ondansetron HCl (Zofran) 4 mg IV Q6H PRN PRN PRN Reason: NAUSEA/VOMITING Last Admin: 04/16/20 11:53 Dose: 4 mg Documented by: Oxycodone HCl (Oxyir) 5 mg PO Q4H PRN PRN PRN Reason: Pain Score 4-5/10 Last Admin: 04/14/20 21:36 Dose: 5 mg Documented by: Pioglitazone HCl (Actos) 30 mg PO DAILY [facility] Last Admin: 04/16/20 10:27 Dose: 30 mg Documented by: Promethazine HCl (Phenergan) 12.5 mg IV Q6H PRN PRN PRN Reason: Breakthrough Nausea/Vomiting Last Admin: 04/16/20 05:35 Dose: 12.5 mg Documented by: Senna/Docusate Sodium (Senokot-S, Kylie-Colace) 2 tablet PO BID PRN PRN PRN Reason: Constipation Sodium Chloride () 10 - 40 ml IV UD PRN PRN Reason: SALINE FLUSH Last Admin: 04/16/20 10:49 Dose: 10 ml Documented by: Tbo-Filgrastim (Granix) 300 mcg SC DAILY [facility] Last Admin: 04/16/20 10:50 Dose: 300 mcg Documented by: Medical Necessity - Tobacco Use Smoking Status: Former smoker Tobacco Use: Non-smoker Assessment/Plan All Active Problems Diverticulitis large intestine (Resolved) Cancer of left lung (Acute) Left pleural effusion (Acute) Atrial fibrillation with RVR (Acute) Acute respiratory insufficiency (Acute) Pulmonary embolism (Acute) Thrombocytopenia (Acute) RECOMMENDATIONS: 1. Obtain walking oximetry 2. Monitor for complications of IVC filter 3. Continue empiric antimicrobial therapy to complete 7 days of treatment. 4. Encourage incentive spirometer use and mobilize patient as tolerated. 5. Aggressive electrolyte repletion. 6. Continue Granix. IMPRESSIONS: 1. Acute hypoxemic respiratory insufficiency/shortness of breath secondary to pulmonary emboli and possible pneumonia The patient presented to the hospital with shortness of breath with radiographic evidence of multiple right-sided pulmonary emboli. He also has a questionable infiltrate in the left lung base. Given the patient's pancytopenia, it is reasonable to continue empiric antimicrobials. Patient with IVC filter placed today. Okay to discontinue anticoagulation from my perspective during the acute phase. Patient does have active cancer and will be at high risk for continued clot. Patient should have a walking oximetry prior to discharge. 2. Pancytopenia Likely secondary to chemotherapy. Continue to monitor daily. Continue Granix. Transfuse if hemoglobin drops below 7 g/dL. 3. Hypokalemia Electrolyte repletion as ordered. Recheck levels in the morning. 4. Primary lung cancer/hypertension/hyperlipidemia/diabetes mellitus/transient atrial fibrillation Complicates care, management, recovery and prognosis. Continue home medications were indicated. Although the patient presented in atrial fibrillation, he subsequently chemically converted after receiving Cardizem. Inpatient E&M: [id number] [facility] H[facility] L2
--- NOTE | 2020-04-16 14:14 | PN_ITS ---
Patient Problems: Active and Suspected Problems Cancer of left lung (Acute) Left pleural effusion (Acute) Atrial fibrillation with RVR (Acute) Acute respiratory insufficiency (Acute) Pulmonary embolism (Acute) Thrombocytopenia (Acute) Reason for Visit: PE Subjective: Feels well. No shortness of breath. Vitals/I&O's: Vital Signs Temp Pulse Resp BP Pulse Ox 36.8 C 75 18 117/61 97 04/16/20 10:15 04/16/20 11:00 04/16/20 10:15 04/16/20 10:49 04/16/20 10:15 Oxygen Flow Rate (L/min) 2 Oxygen Delivery Method Room Air Weight: 65.6 kg Body Mass Index (BMI) 21.1 Finger Stick Blood Glucose 121 Intake and Output for Last 24 Hours 04/14/20 04/15/20 04/16/20 23:59 23:59 23:59 Intake Total 2110.43 / 2110.43 2671.08 / 2671.08 939.17 / 939.17 Balance 2110.43 / 2110.43 2671.08 / 2671.08 939.17 / 939.17 General: Alert, No apparent distress HEENT: Atraumatic, Normocephalic Oral: Moist Mucosa, No Gingival or Mucosal Lesions/ Ulcerations Neck: No Nodes, Thyroid Normal Size and Texture Lungs: Clear to auscultation, Normal air movement, No rhonchi, No wheeze, No rales Cardiovascular: Regular rate, Regular Rhythm, Normal S1, Normal S2, No murmurs Abdomen: Bowel Sounds Present, Soft, Non Tender, Non-Distended, No Hepato- splenomegaly Extremities: No edema, No Calf Tenderness Psych/Mental Status: Normal Affect, Appropriate Microbiology Past 72 Hours 04/13/20 08:52 Blood Culture (Wb) - Right Hand Blood Culture - Preliminary No growth in 48 hours. 04/13/20 08:52 Blood Culture (Wb) - Anticubital Left Blood Culture - Preliminary No growth in 48 hours. 04/13/20 21:20 Urine, Clean Catch Streptococcus pneumoniae Antigen (M - Final 04/13/20 21:20 Urine, Clean Catch Legionella Antigen - Final 04/13/20 10:45 Mucosa - Nose Respiratory Panel (PCR) - Final Laboratory Results 04/14/20 06:09: Diff Path Review Reviewed 04/15/20 03:15: Diff Path Review Reviewed 04/15/20 05:55: Diff Path Review Reviewed 04/15/20 15:25: WBC 1.6 L, RBC 2.94 L, Hgb 8.0 L, Hct 25.1 L, MCV 85.4, MCH 27.2, MCHC 31.9 L, RDW Std Deviation 55.9 H, RDW Coeff of Sinan 18.2 H, Plt Count 28 L*, MPV 11.1, Immature Gran % (Auto) 1.900 H, Neut % (Auto) 44.7 L, Lymph % (Auto) 43.5 H, Chester % (Auto) 6.8, Eos % (Auto) 2.5, Baso % (Auto) 0.6, Absolute Neuts (auto) 0.7 L, Absolute Lymphs (auto) 0.70 L, Nucleated RBC % 0, Differential Comment SCANNED, Diff Path Review Reviewed, Platelet Estimate [facility] 04/15/20 15:25: APTT 50.5 H 04/16/20 04:58: WBC 1.7 L, RBC 2.85 L, Hgb 7.7 L, Hct 24.2 L, MCV 84.9, MCH 27.0, MCHC 31.8 L, RDW Std Deviation 55.8 H, RDW Coeff of Sinan 18.1 H, Plt Count 20 L*, MPV 9.4, Immature Gran % (Auto) 2.900 H, Neut % (Auto) 40.1 L, Lymph % (Auto) 45.3 H, Chester % (Auto) 7.0, Eos % (Auto) 3.5, Baso % (Auto) 1.2 H, Absolute Neuts (auto) 0.7 L, Absolute Lymphs (auto) 0.78 L, Nucleated RBC % 0, Differential Comment SCANNED, Diff Path Review Reviewed, Platelet Estimate [facility] 04/16/20 04:58: Sodium 134 L, Potassium 3.4 L, Chloride 107, Carbon Dioxide 22.0, Anion Gap 5, BUN 15, Creatinine 0.76, Estim Creat Clear Calc 51.78, Est GFR (MDRD) Af Amer 127, Est GFR (MDRD) Non-Af 105, BUN/Creatinine Ratio 19.9, Glucose 99, Calcium 7.9 L, Total Bilirubin 0.50, AST 28, ALT 35, Alkaline Phosphatase 77, Total Protein 5.6 L, Albumin 2.0 L, Globulin 3.6, Albumin/Globulin Ratio 0.6 L 04/16/20 05:00: Magnesium 1.9 Current Medications Acetaminophen (Tylenol) 650 mg PO Q6H PRN PRN PRN Reason: Pain Score 1-10/Temp > 100.7 F Al Hydroxide/Mg Hydroxide (Mylanta Ii) 30 ml PO Q6H PRN PRN PRN Reason: Gastric Burning Last Admin: 04/15/20 10:47 Dose: 30 ml Documented by: Albuterol Sulfate (Ventolin Aerosols) 2.5 mg INHALATION Q2H PRN PRN PRN Reason: SOB/Wheezing Albuterol/Ipratropium (Duoneb) 3 ml INHALATION Q6H.RT [facility] Last Admin: 04/16/20 13:30 Dose: Not Given Documented by: Atorvastatin Calcium (Lipitor) 20 mg PO QHS [facility] Last Admin: 04/15/20 21:35 Dose: 20 mg Documented by: Dextrose (D50w Syringe) 0 gm IV X1 PRN; Protocol PRN Reason: Hypoglycemia Gabapentin (Neurontin) 200 mg PO TIDCM [facility] Last Admin: 04/16/20 11:52 Dose: 200 mg Documented by: Glucagon () 1 mg IM .X1 PRN PRN Reason: Hypoglycemia Guaifenesin (Mucinex) 1,200 mg PO BID [facility] Last Admin: 04/16/20 10:27 Dose: 1,200 mg Documented by: Sodium Chloride () 1,000 mls @ 50 mls/hr IV .Q20H [facility] Last Admin: 04/16/20 10:22 Dose: 50 mls/hr Documented by: Cefepime HCl 1 gm/ Sodium (Chloride) 50 mls @ 100 mls/hr IV Q8 [facility] Last Infusion: 04/16/20 06:02 Dose: Infused Documented by: Sodium Chloride () 250 mls @ 15 mls/hr IV .[id number] PRN PRN Reason: Saline Flush Last Infusion: 04/14/20 22:46 Dose: Infused Documented by: Sodium Chloride () 250 mls @ 15 mls/hr IV .[id number] PRN PRN Reason: Additional IVPB Infusion Metoprolol Tartrate (Lopressor (Beta Nella)) 50 mg PO BID [facility] Last Admin: 04/16/20 10:49 Dose: 50 mg Documented by: Morphine Sulfate () 2 mg IV Q3H PRN PRN PRN Reason: Pain Score 6-10/10 Nitroglycerin (Nitrostat) 0.4 mg SUBLINGUAL Q5M PRN PRN Reason: CARDIAC/CHEST PAIN Nutritional Formula (Lactose Free) (Ensure Enlive) 120 ml PO 4X/DAY [facility] Last Admin: 04/16/20 10:27 Dose: 120 ml Documented by: Ondansetron HCl (Zofran) 4 mg IV Q6H PRN PRN PRN Reason: NAUSEA/VOMITING Last Admin: 04/16/20 11:53 Dose: 4 mg Documented by: Oxycodone HCl (Oxyir) 5 mg PO Q4H PRN PRN PRN Reason: Pain Score 4-5/10 Last Admin: 04/14/20 21:36 Dose: 5 mg Documented by: Pioglitazone HCl (Actos) 30 mg PO DAILY [facility] Last Admin: 04/16/20 10:27 Dose: 30 mg Documented by: Promethazine HCl (Phenergan) 12.5 mg IV Q6H PRN PRN PRN Reason: Breakthrough Nausea/Vomiting Last Admin: 04/16/20 05:35 Dose: 12.5 mg Documented by: Senna/Docusate Sodium (Senokot-S, Kylie-Colace) 2 tablet PO BID PRN PRN PRN Reason: Constipation Sodium Chloride () 10 - 40 ml IV UD PRN PRN Reason: SALINE FLUSH Last Admin: 04/16/20 10:49 Dose: 10 ml Documented by: Tbo-Filgrastim (Granix) 300 mcg SC DAILY [facility] Last Admin: 04/16/20 10:50 Dose: 300 mcg Documented by: STROKE Vital Signs/Narrative: Vital Signs Temp Pulse Resp BP Pulse Ox 04/16/20 11:00 75 04/16/20 10:49 78 117/61 04/16/20 10:15 36.8 C 78 18 117/61 97 Medical Necessity - Tobacco Use Smoking Status: Former smoker Tobacco Use: Non-smoker Assessment/Plan All Active Problems Diverticulitis large intestine (Resolved) Cancer of left lung (Acute) Left pleural effusion (Acute) Atrial fibrillation with RVR (Acute) Acute respiratory insufficiency (Acute) Pulmonary embolism (Acute) Thrombocytopenia (Acute) 1. Acute PE * plt down to 20k * DW Drs. Cote and Mejia. Dr. Cote recommend dc anticoagulation and an IVC filter. JANET Ba who performed an IVC filter today * Patient aware that the IVC filter is temporary and will need to eventually come out. * may consider anticoagulation as platelets allow * Duplex negative * suspect hypercoagulable due to underlying malignancy 2. thrombocytopenia * too early for HIT * per Dr. Cote, felt to be related with chemotherapy 3.neutropenia * stable * monitor 4. anemia: * stable * monitor 5. lung adenocarcinoma * follow up with oncology as outpt. 6. VTE prophylaxis SCDs Greater than 35 minutes of which greater than 50% of the time was coordinating care and discussing with specialists about PE and thrombocytopenia Inpatient E&M: [id number] [facility] Hosp L3
--- NOTE | 2020-04-16 14:24 | NT.THERAPY_ITS ---
Nutrition Therapy Report - History Nutrition Services has been consulted to:: Manage nutrient details of diet order Current diet / nutrition support order:: No diet order, previously cardiac diet. Ensure Enlive 120ml 4x/day at [email or web address]. Magic Cup with lunch and dinner. - Anthropometric Measurements Height:: 5 ft 9 in Weight:: 65.6 kg Body Mass Index (BMI):: 21.3 - Relevant Labs Relevant Labs:: WBC 1.7 K/mm3 (4.4-11.0) L 04/16/20 04:58 RBC 2.85 M/mm3 (4.6-6.2) L 04/16/20 04:58 Hgb 7.7 g/dL (13.0-16.5) L 04/16/20 04:58 Hct 24.2 % (40-54) L 04/16/20 04:58 MCH 26.8 pg (27.0-32.0) L 04/15/20 05:55 MCHC 31.8 g/dL (32-36) L 04/16/20 04:58 RDW Std Deviation 55.8 fl (35.1-43.9) H 04/16/20 04:58 RDW Coeff of Sinan 18.1 % (11.6-14.6) H 04/16/20 04:58 Plt Count 20 K/mm3 (150-450) L* 04/16/20 04:58 Immature Gran % (Auto) 2.900 % (0.0-0.9) H 04/16/20 04:58 Neut % (Auto) 40.1 % (47-70) L 04/16/20 04:58 Lymph % (Auto) 45.3 % (19-41) H 04/16/20 04:58 Eos % (Auto) 5.3 % (0-5) H 04/15/20 05:55 Baso % (Auto) 1.2 % (0-1) H 04/16/20 04:58 Absolute Neuts (auto) 0.7 X10^3/uL (2.0-7.7) L 04/16/20 04:58 Absolute Lymphs (auto) 0.78 X10^3/uL (0.83-4.51) L 04/16/20 04:58 PT 15.4 SECONDS (11.7-14.9) H 04/14/20 09:00 APTT 50.5 Seconds (24.1-36.2) H 04/15/20 15:25 D-Dimer Quant (PE/DVT) 7.92 FEU/ug/m (0.27-0.49) H* 04/13/20 05:45 Sodium 134 mmol/L (136-145) L 04/16/20 04:58 Potassium 3.4 mmol/L (3.5-5.1) L 04/16/20 04:58 Chloride 108 mmol/L (98-107) H 04/14/20 06:09 BUN 19 mg/dL (7-18) H 04/15/20 03:15 BUN/Creatinine Ratio 22.6 RATIO (10-20) H 04/15/20 03:15 Glucose 126 mg/dL (74-106) H 04/13/20 05:45 Calcium 7.9 mg/dL (8.5-10.1) L 04/16/20 04:58 Direct Bilirubin 0.32 mg/dL (0.00-0.30) H 04/13/20 08:52 C-React Prot Ext Range 150.00 mg/L (0.0-3.0) H 04/13/20 08:52 B-Natriuretic Peptide 102.8 pg/mL (0-100) H 04/13/20 05:45 Total Protein 5.6 g/dL (6.4-8.2) L 04/16/20 04:58 Albumin 2.0 g/dL (3.2-5.0) L 04/16/20 04:58 Globulin 4.6 g/dL (2.2-4.2) H 04/13/20 08:52 Albumin/Globulin Ratio 0.6 RATIO (0.9-2.4) L 04/16/20 04:58 - Assessment Food / Nutrition-Related History:: Patient currently without diet order due to plans for Ama filter placement procedure today. Was on Cardiac diet with overall poor intake due to ongoing N/V. Patient continues to have episodes of emesis and poor toleration to PO. Has not been able to eat much besides drinks of water, juice, and bites of peaches. Typically accepts Ensure Enlive provided at [facility]; occasional refusals noted. CBW 65.6kg-- 0.7kg wt gain from last review; wt overall stable since last review. Patient's daughter in room during assessment today. Previously identified malnutrition criteria include CBW 143.1#, UBW 160# from January of 2020 per pt report; indicating severe weight loss of 10.6% x3 months and overall poor intake. Patient does not show visual signs of muscle/fat depletion at this time. - Nutrition Diagnosis Problem / Etiology / Signs & Symptoms (PES):: Moderate Malnutrition r/t inabilit y to consume adequate calories and protein d/t ongoing vomiting AEB severe weight loss of 10.6% x3 months, poor appetite, negligible intake at meals. Evidence of Malnutrition Exists:: Yes Moderate PCM:: Chronic Illness - Nutrition Intervention Nutrition Prescription:: Estimated nutrition needs: 1700-1900kcal, 75-85g protein - Food / Nutrient Delivery Interventions Summary of nutrition intervention:: Ensure Enlive 120ml 4x/day at [facility]. Ensure Clear 240ml with meals. Magic Cup with lunch and dinner. Encouraged intake of clear liquids as tolerated as diet advanced post-op. Nutrition education provided?: Yes - Encouraged gradual advancement of intake with liquids and dry/bland foods. - MNT Monitoring Further MNT monitoring and evaluation required?: Yes MNT Follow-up in:: 3-5 days - Nikkie Boston, Dietetic Student
[2020-04-16] MEDS: Atorvastatin Calcium 20 MG Tablet PO (21:21)
[2020-04-17] VITALS (9 sets, daily range): BP systolic 114–127; BP diastolic 51–61; PULSE 73–82; RESP 18–20; TEMP 36.9–37.1; O2SAT 84–100
[2020-04-17] MEDS: 0.9% Normal Saline 1,000 ML 50 ML IV (05:40)
[2020-04-17 06:07] LABS: Hematocrit 23.7 % (40-54); Hemoglobin 7.7 g/dL (13.0-16.5); Mean Corp Hgb Conc 32.5 g/dL (32-36); Mean Corpuscular Hgb 27.4 pg (27.0-32.0); Mean Corpuscular Volume 84.3 fL (80-94); Mean Platelet Vol. 10.7 fl (6.2-12.0); POSITIVE COUNT YES; POSITIVE DIFFERENTIAL YES; POSITIVE MORPHOLOGY YES; RBC Distribution Width CV 18.1 % (11.6-14.6); RBC Distribution Width SD 55.2 fl (35.1-43.9); Red Blood Count 2.81 M/mm3 (4.6-6.2); White Blood Count 1.8 K/mm3 (4.4-11.0)
[2020-04-17 06:08] LABS: Differential Indicated MANUAL DIFF; Platelet Count 14 K/mm3 (150-450)
[2020-04-17 06:30] LABS: Anion Gap 6 (5-15); BUN 10 mg/dL (7-18); BUN/Creat Ratio 12.5 RATIO (10-20); Calcium,Total 8.2 mg/dL (8.5-10.1); Chloride 108 mmol/L (98-107); EST Glomerular Filtration Rate 98 mL/min (>60); Est Glom Filt Rate - Afr Amer 119 mL/min (>60); Estimated Creatinine Clearance 64.42 ml/min; Glucose 84 mg/dL (74-106); Potassium 3.3 mmol/L (3.5-5.1); Sodium Level 138 mmol/L (136-145)
[2020-04-17 06:39] LABS: Metamyelocyte 4 % (0-1); Neutrophil-Band 11 % (0-5); Neutrophil-Segmented 34 % (47-70); Total Cells Counted 100 (MANUAL DIFF)
[2020-04-17 06:40] LABS: Absolute Lymphocyte Count 0.96 X10^3/uL (0.83-4.51); Absolute Neutrophil Count 0.8 X10^3/uL (2.0-7.7); Lymphocyte 52 % (19-41); Lymphocyte # 0.96 X10^3/ul (4.0); Monocyte 3 % (0-10); Neutrophil # 0.83 X10^3/uL (2.7-7.7); Platelet Estimate MKD DEC (ADEQ); Red Cell Morphology NORM C+C NORMAL (NORM C&C)
[2020-04-17] MEDS: Ipratropium/Albuterol Sulfate 3 ML AMPUL.NEB INHALATION (07:21)
--- NOTE | 2020-04-17 08:00 | CASEMGMT ---
Tunnel cath notes/CXR results faxed to [facility] at this time. Melissa WEI CM
[2020-04-17] MEDS: Gabapentin 100 MG Capsule 200 MG PO ×2 (08:32→12:04)
--- NOTE | 2020-04-17 08:50 | PCM.PN.PUL ---
Patient Problems: Active and Suspected Problems Cancer of left lung (Acute) Left pleural effusion (Acute) Atrial fibrillation with RVR (Acute) Acute respiratory insufficiency (Acute) Pulmonary embolism (Acute) Thrombocytopenia (Acute) Subjective: Patient did well overnight. Patient states he did not have a walking oximetry yesterday afternoon. Patient feels I think I can go home. - Physical Exam Vitals/I&O's: Vital Signs Temp Pulse Resp BP Pulse Ox 37.1 C 73 20 H 114/51 L 94 04/17/20 03:18 04/17/20 07:00 04/17/20 03:18 04/17/20 03:18 04/17/20 03:18 Oxygen Flow Rate (L/min) 2 Oxygen Delivery Method Room Air Weight: 65.1 kg Body Mass Index (BMI) 21.3 Finger Stick Blood Glucose 121 Intake and Output for Last 24 Hours 04/15/20 04/16/20 04/17/20 23:59 23:59 23:59 Intake Total 2671.08 / 2671.08 1279.17 / 1279.17 1015 / 1015 Balance 2671.08 / 2671.08 1279.17 / 1279.17 1015 / 1015 General: Alert, Oriented x3, Cooperative, No apparent distress, Well developed, Well nourished, - - Speaking in full sentences HEENT: Atraumatic, PERRLA, EOMI, Normocephalic, - - No scleral icterus or injection noted Oral: Moist Mucosa, No Gingival or Mucosal Lesions/ Ulcerations Neck: Supple, No JVD, No Nodes, Trachea Midline, - - Surgical site is clean, dry and intact Lungs: Clear to auscultation, No rhonchi, No wheeze, No rales, - - Symmetric expansion. Cardiovascular: Normal S1, Normal S2, No murmurs, Irregular Rate, No rub noted, No Gallop Abdomen: Bowel Sounds Present, Soft, Non Tender, Non-Distended Extremities: No clubbing, No cyanosis, No edema Skin: No rashes, No breakdown Musculoskeletal: No Tenderness to Palpation of Joints or Extremities Lymphatic: No Cervical, Supraclavicular, or Inguinal Adenopathy Neurological: Cranial nerves II-XII grossly intact, Neuro grossly intact, Motor Exam 5/5 strength throughout Psych/Mental Status: Alert and oriented to time, place, person, mood and affect Microbiology Past 72 Hours 04/13/20 08:52 Blood Culture (Wb) - Right Hand Blood Culture - Preliminary No growth in 48 hours. 04/13/20 08:52 Blood Culture (Wb) - Anticubital Left Blood Culture - Preliminary No growth in 48 hours. Laboratory Results 04/14/20 06:09: Diff Path Review Reviewed 04/15/20 03:15: Diff Path Review Reviewed 04/15/20 05:55: Diff Path Review Reviewed 04/15/20 15:25: Diff Path Review Reviewed 04/16/20 04:58: Diff Path Review Reviewed 04/16/20 05:00: Magnesium 1.9 04/17/20 06:00: WBC 1.8 L, RBC 2.81 L, Hgb 7.7 L, Hct 23.7 L, MCV 84.3, MCH 27.4, MCHC 32.5, RDW Std Deviation 55.2 H, RDW Coeff of Sinan 18.1 H, Plt Count 14 L*, MPV 10.7, Neut % (Auto) Not Reportable, Absolute Neuts (auto) 0.8 L, Absolute Lymphs (auto) 0.96, Total Counted 100, Neutrophils % (Manual) 34 L, Band Neutrophils % 11 H, Lymphocytes % (Manual) 52 H, Monocytes % (Manual) 3, Metamyelocytes % 4 H, Diff Path Review May foll, Platelet Estimate MKD DEC, RBC Morphology NORM C+C 04/17/20 06:00: Sodium 138, Potassium 3.3 L, Chloride 108 H, Carbon Dioxide 24.0, Anion Gap 6, BUN 10, Creatinine 0.80, Estim Creat Clear Calc 64.42, Est GFR (MDRD) Af Amer 119, Est GFR (MDRD) Non-Af 98, BUN/Creatinine Ratio 12.5, Glucose 84, Calcium 8.2 L Current Medications Acetaminophen (Tylenol) 650 mg PO Q6H PRN PRN PRN Reason: Pain Score 1-10/Temp > 100.7 F Al Hydroxide/Mg Hydroxide (Mylanta Ii) 30 ml PO Q6H PRN PRN PRN Reason: Gastric Burning Last Admin: 04/15/20 10:47 Dose: 30 ml Documented by: Albuterol Sulfate (Ventolin Aerosols) 2.5 mg INHALATION Q2H PRN PRN PRN Reason: SOB/Wheezing Albuterol/Ipratropium (Duoneb) 3 ml INHALATION Q6H.RT [facility] Last Admin: 04/17/20 07:21 Dose: 3 ml Documented by: Atorvastatin Calcium (Lipitor) 20 mg PO QHS [facility] Last Admin: 04/16/20 21:21 Dose: 20 mg Documented by: Dextrose (D50w Syringe) 0 gm IV X1 PRN; Protocol PRN Reason: Hypoglycemia Gabapentin (Neurontin) 200 mg PO TIDCM [facility] Last Admin: 04/17/20 08:32 Dose: 200 mg Documented by: Glucagon () 1 mg IM .X1 PRN PRN Reason: Hypoglycemia Guaifenesin (Mucinex) 1,200 mg PO BID [facility] Last Admin: 04/16/20 21:21 Dose: 1,200 mg Documented by: Sodium Chloride () 1,000 mls @ 50 mls/hr IV .Q20H [facility] Last Admin: 04/17/20 05:40 Dose: 50 mls/hr Documented by: Cefepime HCl 1 gm/ Sodium (Chloride) 50 mls @ 100 mls/hr IV Q8 [facility] Last Infusion: 04/17/20 06:16 Dose: Infused Documented by: Sodium Chloride () 250 mls @ 15 mls/hr IV .[id number] PRN PRN Reason: Saline Flush Last Infusion: 04/14/20 22:46 Dose: Infused Documented by: Sodium Chloride () 250 mls @ 15 mls/hr IV .[id number] PRN PRN Reason: Additional IVPB Infusion Metoprolol Tartrate (Lopressor (Beta Nella)) 50 mg PO BID [facility] Last Admin: 04/16/20 21:21 Dose: 50 mg Documented by: Morphine Sulfate () 2 mg IV Q3H PRN PRN PRN Reason: Pain Score 6-10/10 Nitroglycerin (Nitrostat) 0.4 mg SUBLINGUAL Q5M PRN PRN Reason: CARDIAC/CHEST PAIN Nutritional Formula (Lactose Free) (Ensure Enlive) 120 ml PO 4X/DAY [facility] Last Admin: 04/16/20 22:21 Dose: Not Given Documented by: Ondansetron HCl (Zofran) 4 mg IV Q6H PRN PRN PRN Reason: NAUSEA/VOMITING Last Admin: 04/16/20 11:53 Dose: 4 mg Documented by: Oxycodone HCl (Oxyir) 5 mg PO Q4H PRN PRN PRN Reason: Pain Score 4-5/10 Last Admin: 04/14/20 21:36 Dose: 5 mg Documented by: Pioglitazone HCl (Actos) 30 mg PO DAILY [facility] Last Admin: 04/16/20 10:27 Dose: 30 mg Documented by: Promethazine HCl (Phenergan) 12.5 mg IV Q6H PRN PRN PRN Reason: Breakthrough Nausea/Vomiting Last Admin: 04/16/20 14:40 Dose: 12.5 mg Documented by: Senna/Docusate Sodium (Senokot-S, Kylie-Colace) 2 tablet PO BID PRN PRN PRN Reason: Constipation Sodium Chloride () 10 - 40 ml IV UD PRN PRN Reason: SALINE FLUSH Last Admin: 04/16/20 10:49 Dose: 10 ml Documented by: Tbo-Filgrastim (Granix) 300 mcg SC DAILY [facility] Last Admin: 04/16/20 10:50 Dose: 300 mcg Documented by: Medical Necessity - Tobacco Use Smoking Status: Former smoker Tobacco Use: Non-smoker Assessment/Plan All Active Problems Diverticulitis large intestine (Resolved) Cancer of left lung (Acute) Left pleural effusion (Acute) Atrial fibrillation with RVR (Acute) Acute respiratory insufficiency (Acute) Pulmonary embolism (Acute) Thrombocytopenia (Acute) RECOMMENDATIONS: 1. Obtain walking oximetry 2. Monitor for complications of IVC filter 3. Continue empiric antimicrobial therapy to complete 7 days of treatment. 4. Encourage incentive spirometer use and mobilize patient as tolerated. 5. Aggressive electrolyte repletion. 6. Continue Granix. 7. Okay to discharge from a pulmonary perspective with supplemental oxygen if indicated with walking oximetry IMPRESSIONS: 1. Acute hypoxemic respiratory insufficiency/shortness of breath secondary to pulmonary emboli and possible pneumonia The patient presented to the hospital with shortness of breath with radiographic evidence of multiple right-sided pulmonary emboli. He also has a questionable infiltrate in the left lung base. Given the patient's pancytopenia, it is reasonable to continue empiric antimicrobials. Patient with IVC filter placed today. Okay to discontinue anticoagulation from my perspective during the acute phase. Patient does have active cancer and will be at high risk for continued clot. Patient should have a walking oximetry prior to discharge. Anticipate low requirements if oxygen is required, so still could be discharged from a pulmonary perspective. 2. Pancytopenia Likely secondary to chemotherapy. Continue to monitor daily. Continue Granix. Transfuse if hemoglobin drops below 7 g/dL. Defer to oncology on appropriate timing for anticoagulation and removal of IVC filter 3. Hypokalemia Electrolyte repletion as ordered. Recheck levels in the morning. 4. Primary lung cancer/hypertension/hyperlipidemia/diabetes mellitus/transient atrial fibrillation Complicates care, management, recovery and prognosis. Continue home medications were indicated. Although the patient presented in atrial fibrillation, he subsequently chemically converted after receiving Cardizem. Inpatient E&M: [id number] [facility] Hosp L2
--- NOTE | 2020-04-17 09:37 | PCM.DC ---
- Discharge Diagnoses Current Active Problems: Current Active and Chronic Problems Cancer of left lung (Acute) Left pleural effusion (Acute) Atrial fibrillation with RVR (Acute) Acute respiratory insufficiency (Acute) Pulmonary embolism (Acute) Thrombocytopenia (Acute) You will use the following diet at home:: No restrictions Your food should be the consistency of: Regular Discharge Activity: Return to Normal Activity Call your doctor if you observe: Fever of 101 or Higher, Shortness of breath Allergies/Adverse Reactions: Allergies prednisone Allergy (Verified 04/13/20 05:39) Rash Medications to take at Discharge Metoprolol Tartrate [Lopressor (beta latrell)] 50 mg PO BID 07/27/14 Simvastatin [Zocor] 40 mg PO QHS 07/27/14 Cholecalciferol (Vitamin D3) [D3-2000] 2,000 unit PO DAILY 09/11/15 Gluc Brady/Chondro Brady A/Vit C/Mn [Glucosamine 1,500 Complex Cp] 1 each PO DAILY 01/31/16 Pioglitazone [Actos] 30 mg PO DAILY 01/31/16 Acetaminophen [Tylenol] 500 mg PO Q6H PRN PRN 04/14/20 Esomeprazole Mag Trihydrate [Nexium] 20 mg PO DAILY 04/14/20 Folic Acid 1 mg PO DAILY 04/14/20 Gabapentin [Neurontin] 200 mg PO TID 04/14/20 Oxycodone [Oxyir] 5 mg PO Q6H PRN PRN 04/14/20 Promethazine HCl 25 mg PO Q6H PRN 04/14/20 Pseudoephed/Acetaminophen/Cpm [Allergy Sinus-D Caplet] 1 tab PO DAILY 04/14/20 Rosuvastatin Calcium [Crestor] 40 mg PO DAILY 04/14/20 Amox/Clavulanate Tablet [Augmentin Tablet] 875 mg PO Q12H #8 tab 04/17/20 Guaifenesin [Mucinex] 1,200 mg PO BID #10 tab 04/17/20 The following prescriptions were given: Amox/Clavulanate Tablet [Augmentin Tablet] 875 mg PO Q12H #8 tab Transmission Status: Pending to [id number] Guaifenesin [Mucinex] 1,200 mg PO BID #10 tab Transmission Status: Pending to [id number] Primary Care Physician: Jack Shcaffer MD [Primary Care Provider] - Within 2 Weeks Test Results: Test results from this visit will be discussed in further detail at your follow-up appointment, if applicable. Please Follow Up With: Tim Ba MD - [phone] When: Notify me when you are cleared for filter removal Please Follow Up With: Adam Cote DO When: 04/18/2020. Call for appointment Proposed Discharge Date: 04/17/20
--- NOTE | 2020-04-17 09:39 | PCM.DC.SUM ---
Discharge Date and Diagnosis - Problem List Patient Problems: Active and Suspected Problems Cancer of left lung (Acute) Left pleural effusion (Acute) Atrial fibrillation with RVR (Acute) Acute respiratory insufficiency (Acute) Pulmonary embolism (Acute) Thrombocytopenia (Acute) Date of Admission: 04/13/20 Date of Discharge: 04/17/20 - Primary Discharge Diagnosis Acute Problems: Active Problems Pulmonary emboli Possible pneumococcal pneumonia Pancytopenia, chemotherapy-induced. - Secondary Discharge Diagnosis Chronic Problems: Chronic Problems Vertigo (Chronic) Hyperlipidemia (Chronic) Coronary artery disease (Chronic) Hospital Course and Treatment Imaging Results: Clinical Impression(s) from Imaging Studies Chest X-Ray 04/13/20 05:55 IMPRESSION: Left basilar opacity, possibly pneumonia, aspiration pneumonia and/or atelectasis. Correlation with clinical findings and follow-up recommended. Left pleural fluid versus pleural thickening. at 0636 Reported and signed by: Vicki Edouard MD Electronically Signed: Vicki Edouard MD at 6:36 EDT Tel , Service support , Chest CTA 04/13/20 06:42 IMPRESSION: Pulmonary emboli seen in the right interlobar pulmonary artery as well as in the right lower lobe pulmonary arterial branches. Small left pleural effusion with diffuse left pleural thickening and volume loss in the left hemithorax. Electronically Signed: Jabari Page, at 8:08 EDT , Service support , Hardeep Cote Procedures: 2-D Echocardiogram - Interpretation Summary No evidence for diastolic dysfunction. The estimated ejection fraction is 70 %. Pulmonary artery systolic pressure is 55 mmHg. Aortic sclerosis, no stenosis., - - Inferior venacavogram with inferior vena cava [place] filter placement Summary of Care Provided: The patient is a 84 year old M presents with shortness of breath. Patient had recently undergone VATS pleural biopsy adenocarcinoma of the lung. Presents with shortness of breath. Patient has CTA that showed right-sided pulmonary emboli. Patient was started on heparin and then enoxaparin. Patient developed thrombocytopenia. From his PD got worse and discussed with Dr. Cote, of oncology, who advised IVC filter placement in discontinuing anticoagulation for now. Patient had pancytopenia which Dr. Cote felt was related with the patient's chemotherapy. Dr. Ba was consulted for IVC filter placement. IVC filter placement was performed on April 16 without complications. Patient tolerated procedure well. Patient did have a duplex of his lower extremities that showed no active DVTs. Patient advised that the IVC filter placement is temporary and that will need eventually come out. Patient will follow-up with Dr. Cote in regards to when anticoagulation can be resumed and when it would be felt safe to remove the IVC filter. Patient had left-sided VATS and likely has postsurgical changes but given his the shortness of breath, patient will be treated empirically for pneumonia to complete 7 days of antibiotics. Patient was on cefepime here and will be discharged with amoxicillin/clavulanic acid for the remainder of the course. [] Patient Problems: Active and Suspected Problems Cancer of left lung (Acute) Left pleural effusion (Acute) Atrial fibrillation with RVR (Acute) Acute respiratory insufficiency (Acute) Pulmonary embolism (Acute) Thrombocytopenia (Acute) - Physical Exam Vitals/I&O's: Vital Signs Temp Pulse Resp BP Pulse Ox 37.1 C 73 20 H 114/51 L 94 04/17/20 03:18 04/17/20 07:00 04/17/20 03:18 04/17/20 03:18 04/17/20 03:18 Oxygen Flow Rate (L/min) 2 Oxygen Delivery Method Room Air Weight: 65.1 kg Body Mass Index (BMI) 21.3 Finger Stick Blood Glucose 121 Intake and Output for Last 24 Hours 04/15/20 04/16/20 04/17/20 23:59 23:59 23:59 Intake Total 2671.08 / 2671.08 1279.17 / 1279.17 1015 / 1015 Balance 2671.08 / 2671.08 1279.17 / 1279.17 1015 / 1015 General: Alert, No apparent distress HEENT: Atraumatic, Normocephalic Oral: Moist Mucosa, No Gingival or Mucosal Lesions/ Ulcerations Neck: No Nodes, Thyroid Normal Size and Texture Lungs: Clear to auscultation, Normal air movement, No rhonchi, No wheeze, No rales Cardiovascular: Regular rate, Regular Rhythm, Normal S1, Normal S2, No murmurs Abdomen: Bowel Sounds Present, Soft, Non Tender, Non-Distended, No Hepato-splenomegaly Extremities: No edema, No Calf Tenderness Microbiology Past 72 Hours 04/16/20 12:00 Sputum, Expectorated/Coughed Gram Stain - Final 04/13/20 08:52 Blood Culture (Wb) - Right Hand Blood Culture - Preliminary No growth in 48 hours. 04/13/20 08:52 Blood Culture (Wb) - Anticubital Left Blood Culture - Preliminary No growth in 48 hours. Laboratory Results 04/14/20 06:09: Diff Path Review Reviewed 04/15/20 03:15: Diff Path Review Reviewed 04/15/20 05:55: Diff Path Review Reviewed 04/15/20 15:25: Diff Path Review Reviewed 04/16/20 04:58: Diff Path Review Reviewed 04/17/20 06:00: WBC 1.8 L, RBC 2.81 L, Hgb 7.7 L, Hct 23.7 L, MCV 84.3, MCH 27.4, MCHC 32.5, RDW Std Deviation 55.2 H, RDW Coeff of Sinan 18.1 H, Plt Count 14 L*, MPV 10.7, Neut % (Auto) Not Reportable, Absolute Neuts (auto) 0.8 L, Absolute Lymphs (auto) 0.96, Total Counted 100, Neutrophils % (Manual) 34 L, Band Neutrophils % 11 H, Lymphocytes % (Manual) 52 H, Monocytes % (Manual) 3, Metamyelocytes % 4 H, Diff Path Review May foll, Platelet Estimate MKD DEC, RBC Morphology NORM C+C 04/17/20 06:00: Sodium 138, Potassium 3.3 L, Chloride 108 H, Carbon Dioxide 24.0, Anion Gap 6, BUN 10, Creatinine 0.80, Estim Creat Clear Calc 64.42, Est GFR (MDRD) Af Amer 119, Est GFR (MDRD) Non-Af 98, BUN/Creatinine Ratio 12.5, Glucose 84, Calcium 8.2 L Current Medications Acetaminophen (Tylenol) 650 mg PO Q6H PRN PRN PRN Reason: Pain Score 1-10/Temp > 100.7 F Al Hydroxide/Mg Hydroxide (Mylanta Ii) 30 ml PO Q6H PRN PRN PRN Reason: Gastric Burning Last Admin: 04/15/20 10:47 Dose: 30 ml Documented by: Albuterol Sulfate (Ventolin Aerosols) 2.5 mg INHALATION Q2H PRN PRN PRN Reason: SOB/Wheezing Albuterol/Ipratropium (Duoneb) 3 ml INHALATION Q6H.RT [facility] Last Admin: 04/17/20 07:21 Dose: 3 ml Documented by: Atorvastatin Calcium (Lipitor) 20 mg PO QHS [facility] Last Admin: 04/16/20 21:21 Dose: 20 mg Documented by: Dextrose (D50w Syringe) 0 gm IV X1 PRN; Protocol PRN Reason: Hypoglycemia Gabapentin (Neurontin) 200 mg PO TIDCM [facility] Last Admin: 04/17/20 08:32 Dose: 200 mg Documented by: Glucagon () 1 mg IM .X1 PRN PRN Reason: Hypoglycemia Guaifenesin (Mucinex) 1,200 mg PO BID [facility] Last Admin: 04/16/20 21:21 Dose: 1,200 mg Documented by: Sodium Chloride () 1,000 mls @ 50 mls/hr IV .Q20H [facility] Last Admin: 04/17/20 05:40 Dose: 50 mls/hr Documented by: Cefepime HCl 1 gm/ Sodium (Chloride) 50 mls @ 100 mls/hr IV Q8 [facility] Last Infusion: 04/17/20 06:16 Dose: Infused Documented by: Sodium Chloride () 250 mls @ 15 mls/hr IV .[id number] PRN PRN Reason: Saline Flush Last Infusion: 04/14/20 22:46 Dose: Infused Documented by: Sodium Chloride () 250 mls @ 15 mls/hr IV .[id number] PRN PRN Reason: Additional IVPB Infusion Metoprolol Tartrate (Lopressor (Beta Nella)) 50 mg PO BID [facility] Last Admin: 04/16/20 21:21 Dose: 50 mg Documented by: Morphine Sulfate () 2 mg IV Q3H PRN PRN PRN Reason: Pain Score 6-10/10 Nitroglycerin (Nitrostat) 0.4 mg SUBLINGUAL Q5M PRN PRN Reason: CARDIAC/CHEST PAIN Nutritional Formula (Lactose Free) (Ensure Enlive) 120 ml PO 4X/DAY [facility] Last Admin: 04/16/20 22:21 Dose: Not Given Documented by: Ondansetron HCl (Zofran) 4 mg IV Q6H PRN PRN PRN Reason: NAUSEA/VOMITING Last Admin: 04/16/20 11:53 Dose: 4 mg Documented by: Oxycodone HCl (Oxyir) 5 mg PO Q4H PRN PRN PRN Reason: Pain Score 4-5/10 Last Admin: 04/14/20 21:36 Dose: 5 mg Documented by: Pioglitazone HCl (Actos) 30 mg PO DAILY [facility] Last Admin: 04/16/20 10:27 Dose: 30 mg Documented by: Promethazine HCl (Phenergan) 12.5 mg IV Q6H PRN PRN PRN Reason: Breakthrough Nausea/Vomiting Last Admin: 04/16/20 14:40 Dose: 12.5 mg Documented by: Senna/Docusate Sodium (Senokot-S, Kylie-Colace) 2 tablet PO BID PRN PRN PRN Reason: Constipation Sodium Chloride () 10 - 40 ml IV UD PRN PRN Reason: SALINE FLUSH Last Admin: 04/16/20 10:49 Dose: 10 ml Documented by: Tbo-Filgrastim (Granix) 300 mcg SC DAILY [facility] Last Admin: 04/16/20 10:50 Dose: 300 mcg Documented by: Discharge Diet: No Restrictions Discharge Activity: Return to Normal Activity Call your doctor if you observe: Fever of 101 or Higher, Shortness of breath Home Medications: Medications to take at Discharge Metoprolol Tartrate [Lopressor (beta nella)] 50 mg PO BID 07/27/14 Simvastatin [Zocor] 40 mg PO QHS 07/27/14 Cholecalciferol (Vitamin D3) [D3-2000] 2,000 unit PO DAILY 09/11/15 Gluc Brady/Chondro Brady A/Vit C/Mn [Glucosamine 1,500 Complex Cp] 1 each PO DAILY 01/31/16 Pioglitazone [Actos] 30 mg PO DAILY 01/31/16 Acetaminophen [Tylenol] 500 mg PO Q6H PRN PRN 04/14/20 Esomeprazole Mag Trihydrate [Nexium] 20 mg PO DAILY 04/14/20 Folic Acid 1 mg PO DAILY 04/14/20 Gabapentin [Neurontin] 200 mg PO TID 04/14/20 Oxycodone [Oxyir] 5 mg PO Q6H PRN PRN 04/14/20 Promethazine HCl 25 mg PO Q6H PRN 04/14/20 Pseudoephed/Acetaminophen/Cpm [Allergy Sinus-D Caplet] 1 tab PO DAILY 04/14/20 Rosuvastatin Calcium [Crestor] 40 mg PO DAILY 04/14/20 Amox/Clavulanate Tablet [Augmentin Tablet] 875 mg PO Q12H #8 tab 04/17/20 Guaifenesin [Mucinex] 1,200 mg PO BID #10 tab 04/17/20 Following Prescriptions Were Given to Patient: Amox/Clavulanate Tablet [Augmentin Tablet] 875 mg PO Q12H #8 tab Transmission Status: Pending to [id number] Guaifenesin [Mucinex] 1,200 mg PO BID #10 tab Transmission Status: Pending to [id number] Primary Care Physician: Jack Schaffer MD [Primary Care Provider] - Within 2 Weeks Please Follow Up With: Tim Ba MD - [phone] When: Notify me when you are cleared for filter removal Please Follow Up With: Adam Cote DO When: 04/18/2020. Call for appointment Disposition: Home Minutes spent on discharge:: 35 Patient Condition:: Fair Medical Necessity - Tobacco Use Smoking Status: Former smoker Tobacco Use: Non-smoker Meaningful Use Info Meaningful Use Diagnoses (Choose all that apply): None applicable Inpatient E&M: 24105 Disch Hosp
[2020-04-17] MEDS: TBO-FILGRASTIM 300 MCG/0.5 ML ML SC (10:29)
[2020-04-17] MEDS: Metoprolol Tartrate 50 MG Tablet PO (10:29)
[2020-04-17] MEDS: guaiFENesin 1,200 MG Tablet 1200 MG PO (10:29)
[2020-04-17] MEDS: Pioglitazone Hydrochloride 30 MG Tablet PO (10:29)
--- NOTE | 2020-04-17 10:34 | PHA.DC.MC ---
Pharmacy Service has performed discharge medication reconciliation and counseling for this patient. 1. AMOXICILLIN/CLAVULANATE 875/125MG PO Q12H X 4 DAYS 2. GUAIFENESIN 1200MG PO BID The patient's discharge medication list was reviewed for discrepancies and discrepancies were resolved. I spoke to Dr. Nassar regarding simvastatin and rosuvastatin on D/C list. Patient takes rosuvastatin at home. Dr. Nassar will D/C simvastatin. Home Medications Metoprolol Tartrate [Lopressor (beta latrell)] 50 mg PO BID 07/27/14 Simvastatin [Zocor] 40 mg PO QHS 07/27/14 Cholecalciferol (Vitamin D3) [D3-2000] 2,000 unit PO DAILY 09/11/15 Gluc Brady/Chondro Brady A/Vit C/Mn [Glucosamine 1,500 Complex Cp] 1 each PO DAILY 01/31/16 Pioglitazone [Actos] 30 mg PO DAILY 01/31/16 Acetaminophen [Tylenol] 500 mg PO Q6H PRN PRN 04/14/20 Esomeprazole Mag Trihydrate [Nexium] 20 mg PO DAILY 04/14/20 Folic Acid 1 mg PO DAILY 04/14/20 Gabapentin [Neurontin] 200 mg PO TID 04/14/20 Oxycodone [Oxyir] 5 mg PO Q6H PRN PRN 04/14/20 Promethazine HCl 25 mg PO Q6H PRN 04/14/20 Pseudoephed/Acetaminophen/Cpm [Allergy Sinus-D Caplet] 1 tab PO DAILY 04/14/20 Rosuvastatin Calcium [Crestor] 40 mg PO DAILY 04/14/20 Amox/Clavulanate Tablet [Augmentin Tablet] 875 mg PO Q12H #8 tab 04/17/20 Guaifenesin [Mucinex] 1,200 mg PO BID #10 tab 04/17/20 The patient was counseled on the following discharge medications and changes in medications for homegoing were reviewed. The Reason for Use, instructions for use, and potential side effects were reviewed for all new medications. The patient's questions regarding all of their medications were answered. The patient was able to verbally demonstrate an understanding of their discharge medications.
--- NOTE | 2020-04-17 11:40 | CASEMGMT ---
Addendum entered by Mary Wren 04/17/20 14:24: Call back from Sandra at [facility] and she states that they can take pt at this time. Referral packet faxed at this time. Per Sandra at [facility], they will do start of care tomorrow and she is aware that pt will be at daughter's home(this is also marked on facesheet that was faxed). Pt/daughter, Anna, updated on HHC and O2 at this time, voice understanding. Daughter will be picking pt up at discharge and would like Ed WEI, to go over discharge instructions once she arrives to pick pt up, Ed voices understanding. Pt/daughter voice no further questions/concerns/needs at this time. Melissa RN BONNY Original Note: Per Ed WEI, pt does qualify for home oxygen at this time. This RN CM to room to discuss with pt at this time. Pt has previously stated [facility] was fine for DME and is still agreeable at this time. Therapy is recommending further therapy for pt at this time and pt is agreeable to HHC at this time and states no preference for HHC at this time. Pt does state that he will be staying with daughter, Anna Grover, at discharge. Call to Anna to verify address and update on plan of care at this time, voices understanding and her address updated on pt chart. Referral faxed to [facility] for home oxygen 2liters with exertion at this time. Daughter states she would like to start with [facility] but they are not in-network with pt's insurance at this time and she states no preference from there. Call to [facility] and pt has not been with them in the past and they are unsure if they can staff for SN, PT/OT at this time. Call to [facility] and they will call this RN CM back to see if they can staff pt's area at this time. Call to Antonina at [facility] and she states they have referral and that tech will be over with a tank momentarily. Pt's daughter's house, Anna Grover, is listed as place of delivery per Antonina. This RN CM will update Anna when HHC set up for SN, PT/OT and regarding home oxygen. Pt to also be updated at that time. This RN CM awaiting call back from [facility]. Melissa WEI CM
[2020-04-17 13:41] LABS: Pathologist Review Reviewed
== END 2020-04-17 15:30 | disposition home or self-care (01) | DRG 166 ==
LOC: ED 06:26 → PCU 07:41
PROVIDERS: Internal Medicine Critical Care Medicine; Student in an Organized Health Care Education/Training Program; Admitting Provider Internal Medicine; Emergency Provider Emergency Medicine; PCP Family Medicine
DX: I26.99 Other pulmonary embolism without acute cor pulmonale (principal); D61.810 Antineoplastic chemotherapy induced pancytopenia; J18.9 Pneumonia, unspecified organism; C34.92 Malignant neoplasm of unspecified part of left bronchus or lung; K57.32 Diverticulitis of large intestine without perforation or abscess without bleeding; E44.0 Moderate protein-calorie malnutrition; J90 Pleural effusion, not elsewhere classified; T45.1X5A Adverse effect of antineoplastic and immunosuppressive drugs, initial encounter; I48.91 Unspecified atrial fibrillation; I25.10 Atherosclerotic heart disease of native coronary artery without angina pectoris; E78.2 Mixed hyperlipidemia; Z95.5 Presence of coronary angioplasty implant and graft; R06.89 Other abnormalities of breathing; Z79.899 Other long term (current) drug therapy; Z87.891 Personal history of nicotine dependence; N18.3 Chronic kidney disease, stage 3 (moderate); E11.22 Type 2 diabetes mellitus with diabetic chronic kidney disease; I12.9 Hypertensive chronic kidney disease with stage 1 through stage 4 chronic kidney disease, or unspecified chronic kidney disease; E11.51 Type 2 diabetes mellitus with diabetic peripheral angiopathy without gangrene; I71.4 Abdominal aortic aneurysm, without rupture; E87.6 Hypokalemia; D63.1 Anemia in chronic kidney disease; Z68.21 Body mass index [BMI] 21.0-21.9, adult
CPT/HCPCS: 36415; 37191; 71045; 71275; 80048; 80053; 80076; 83605; 83735; 83880; 84443; 84484; 85025; 85379; 85610; 85730; 86140; 86850; 86900; 86901; 87040; 87070; 87106; 87205; 87449; 87633; 87635; 87641; 93005; 93306; 93970; 94640; 94799; 97116; 97162; 97166; 97530; 97802; 99251; 99285; J7030; J7050; Q9957; Q9967; A4216; C1769; C1880; G0463; J1447; J2405; U0003

== ENCOUNTER → 2020-04-20 09:47 | Outpatient (CLI) | payer MEDICARE, SELFPAY ==
[2020-04-16 14:26] VITALS: BMI 21.3
[2020-04-20 10:00] VITALS: BP 146/71; PULSE 66; RESP 16; TEMP 36.2; O2SAT 99; BMI 21.1
[2020-04-20 12:10] VITALS: BP 139/86; PULSE 74; RESP 16; TEMP 36.3; O2SAT 98
[2020-04-20 13:13] VITALS: BP 130/69; PULSE 70; RESP 16; TEMP 36.3; O2SAT 98
[2020-04-20 13:58] VITALS: BP 130/71; PULSE 72; RESP 16; TEMP 36.4; O2SAT 98
== END ==
PROVIDERS: PCP Family Medicine; Referring Provider Internal Medicine Hematology & Oncology; Visit Provider Internal Medicine Hematology & Oncology
DX: D64.81 Anemia due to antineoplastic chemotherapy (principal)
CPT/HCPCS: 36430; 86850; 86900; 86901; 86920; 86922; P9016; A4216

== ENCOUNTER 2020-05-24 19:48 | Emergency (ER) | payer MEDICARE, OTHER, SELFPAY ==
[2020-04-20 10:00] VITALS: BMI 21.1
[2020-05-24 19:49] VITALS: BP 111/68; PULSE 80; RESP 18; TEMP 36.2; O2SAT 97; BMI 20.9
--- NOTE | 2020-05-24 20:02 | ED.DCSUM_ITS ---
History of Present Illness Chief Complaint: Dizziness Detail of Chief Complaint: difined lightheadedness after rising from sitting position to standing pos Informant: Patient, Family Onset: Today Context: Sudden Onset Timing: Intermittent Quality: Orthostatic Location: Home Current Severity: - - Patient lying in bed and asymptomatic Maximum Severity: Moderate Worsened by: Standing Relieved by: Lying down Associated Symptoms: No other symptoms Narrative: Patient is an elderly male who is very hard of hearing and not a good informant. He does report dizziness which he defines as being lightheaded when he rises fr om a sitting to standing position. He has history of coronary disease with stent placed 15+ years ago, hypertension, hypercholesterolemia and lung cancer. The lung cancer was diagnosed when he had a thoracotomy for recurrent pleural effusions. Patient had chemotherapy last week. He states he gets dehydrated after chemotherapy. He denies fever, chills or night sweats. He denies ocular, visual or auditory symptoms. He denies chest pain. He denies increased shortness of breath. He denies GI symptoms. He denies urologic symptoms. Prior similar symptoms: Yes - Dehydration due to chemo Recent Illness/Hospitalization: Yes - Past Medical History (1) Atrial fibrillation with RVR Status: Acute (2) Cancer of left lung Status: Acute (3) Left pleural effusion Status: Acute (4) Thrombocytopenia Status: Acute (5) Coronary artery disease Status: Chronic (6) Hyperlipidemia Status: Chronic (7) Vertigo Status: Chronic (8) Diverticulitis large intestine Status: Resolved Past Medical History - Allergies and Home Meds Allergies/Adverse Reactions: Allergies allopurinol Allergy (Verified 05/24/20 19:52) NEEDS FOLLOW-UP atorvastatin Adverse Reaction (Verified 05/24/20 19:52) Upset Stomach Primary Care Physician: Jack Schaffer MD [Primary Care Provider] - Prior records reviewed: Yes Surgical History: no surgical history, - - Stent placement Lives: Spouse/ Significant Other Smoking Status: Former smoker Alcohol: None Drugs: None - Family History Maternal Family History: Reports: No pertinent history Review of Systems General: Reports: Malaise. Denies: Chills, Fever, Subjective, Sweats Eyes: Denies: Visual changes - bilaterally, Blurred Vision - bilaterally ENT: Denies: Rhinorrhea, Sore throat Cardiovascular: Denies: Chest pain, Palpitations Respiratory: Denies: Dyspnea, Cough, Sputum, Dyspnea on exertion Gastrointestinal: Denies: Abdominal pain, Nausea, Vomiting, Diarrhea, Melena, Hematochezia Genitourinary: Denies: Dysuria, Hematuria, Frequency Musculoskeletal: Denies: Myalgias, Arthralgias, Back pain Skin: Denies: Rash, Wounds Neurological: Reports: Weakness. Denies: Headache, Parasthesia Endocrine: Denies: Polyuria, Polydipsia Hematologic: Denies: Easy bruising Physical Exam Vital Signs/Narrative: Vital Signs Temp Pulse Resp BP Pulse Ox 05/24/20 19:49 97.2 F L 80 18 111/68 97 Inital Vital Signs reviewed: Yes General: Well developed, Cachectic, No Acute Distress Head: Normocephalic, Atraumatic Eyes: Perrl, EOMI. Negative for: Pale conjunctiva, Scleral icterus ENT: Moist mucous membranes, No rhinorrhea, TM's clear Neck: Supple, Nontender, No lymphadenopathy, No JVD Cardiovascular: Regular rate, Regular rhythm, No murmurs, Normal S1 Respiratory: No distress, Diminished, Decreased Air Movement - Left side Abdomen: Soft, Nontender, Nondistended, Normal bowel sounds Back: Nontender, Normal Inspection Extremities: Nontender, No edema Skin: Normal color, No rash Neurological: Alert, Oriented x3, Cranial nerves II-XII grossly intact, Normal Strength, Normal Sensation Psychological: Normal affect, Normal Mood Diagnostic/Tx/Re-eval Laboratory Results 05/24/20 05/24/20 20:30 20:30 WBC 1.4 L* RBC 3.23 L Hgb 9.0 L Hct 27.9 L MCV 86.4 MCH 27.9 MCHC 32.3 RDW Std Deviation 67.3 H RDW Coeff of Sinan 23.7 H Plt Count 129 L MPV 9.5 Immature Gran % (Auto) 1.500 H Neut % (Auto) 39.3 L Lymph % (Auto) 54.8 H [place] % (Auto) 3.0 Eos % (Auto) 0.7 Baso % (Auto) 0.7 Absolute Neuts (auto) 0.5 L Absolute Lymphs (auto) 0.74 L Nucleated RBC % 0 Diff Path Review May foll Platelet Estimate ADEQUATE RBC Morphology N CHROM Anisocytosis 1+ Sodium 137 Potassium 4.1 Chloride 104 Carbon Dioxide 25.0 Anion Gap 8 BUN 30 H Creatinine 1.35 H Estim Creat Clear Calc 37.11 Est GFR (MDRD) Af Amer 65 Est GFR (MDRD) Non-Af 54 L BUN/Creatinine Ratio 22.2 H Glucose 112 H Calcium 8.6 Patient is neutropenic and anemic. He has been neutropenic and anemic on all of his prior CBCs with differential. Creatinine has increased from 0.8-1.35. BUN to creatinine ratio is greater than 20-1. Acute renal insufficiency due to dehydration. Orthostatic vitals were obtained after the liter. He is no longer orthostatic positive and he reports significant better and not feeling lightheaded when he stands. - Medical Decision Making Patient's symptoms are consistent with orthostatic hypotension most likely due to dehydration. Will obtain blood work to assess for anemia, which she has history of. Basic metabolic panel to assess electrolytes and renal function. He was ordered 1 L of normal saline wide open. Laboratory Results 05/24/20 05/24/20 20:30 20:30 WBC 1.4 L* RBC 3.23 L Hgb 9.0 L Hct 27.9 L MCV 86.4 MCH 27.9 MCHC 32.3 RDW Std Deviation 67.3 H RDW Coeff of Sinan 23.7 H Plt Count 129 L MPV 9.5 Immature Gran % (Auto) 1.500 H Neut % (Auto) 39.3 L Lymph % (Auto) 54.8 H [place] % (Auto) 3.0 Eos % (Auto) 0.7 Baso % (Auto) 0.7 Absolute Neuts (auto) 0.5 L Absolute Lymphs (auto) 0.74 L Nucleated RBC % 0 Diff Path Review May foll Platelet Estimate ADEQUATE RBC Morphology N CHROM Anisocytosis 1+ Sodium 137 Potassium 4.1 Chloride 104 Carbon Dioxide 25.0 Anion Gap 8 BUN 30 H Creatinine 1.35 H Estim Creat Clear Calc 37.11 Est GFR (MDRD) Af Amer 65 Est GFR (MDRD) Non-Af 54 L BUN/Creatinine Ratio 22.2 H Glucose 112 H Calcium 8.6 Patient neutropenia in all likelihood is due to recent chemo for lung cancer. Creatinine is slightly elevated. Will review prior records. Orthostatics were positive. ED Disposition - Plan for ED Patient: Disposition: Home or Assisted Living Diagnosis: Orthostatic hypotension, Moderate dehydration, Renal insufficiency Instructions: ED Hypotension Orthostatic, ED Dehydration Adult, ED Insufficiency Renal Referrals: Jack Schaffer MD [Primary Care Provider] - 3-5 Days Additional Instructions: You need to see either Dr. Jack Schaffer or Dr. Adam Cote in 3 to 5 days to have repeat blood work.
[2020-05-24] MEDS: 0.9% Normal Saline 1,000 ML 1000 ML IV (20:28)
[2020-05-24 20:29] VITALS: BP 100/54; BP 116/66; BP 126/60; PULSE 74; PULSE 79; PULSE 82
--- NOTE | 2020-05-24 20:39 | ED.RN ---
PT BECAME VERY DIZZY WHEN GOING FROM SITTING TO STANDING.
[2020-05-24 20:48] LABS: Absolute Lymphocyte Count 0.74 X10^3/uL (0.83-4.51); Absolute Neutrophil Count 0.5 X10^3/uL (2.0-7.7); Basophil# 0.01 X10^3/uL; Basophil% 0.7 % (0-1); Eosinophil# 0.01 X10^3/uL; Eosinophils% 0.7 % (0-5); Hematocrit 27.9 % (40-54); Lymphocyte # 0.74 X10^3/ul (4.0); Lymphocyte % 54.8 % (19-41); Mean Corp Hgb Conc 32.3 g/dL (32-36); Mean Corpuscular Hgb 27.9 pg (27.0-32.0); Mean Corpuscular Volume 86.4 fL (80-94); Mean Platelet Vol. 9.5 fl (6.2-12.0); Monocyte# 0.04 X10^3/uL; NRBC Flagged by Analyzer 0 % (0-5); Neutrophil # 0.53 X10^3/uL (2.7-7.7); Neutrophil % 39.3 % (47-70); POSITIVE COUNT YES; POSITIVE DIFFERENTIAL YES; POSITIVE MORPHOLOGY YES; Platelet Count 129 K/mm3 (150-450); RBC Distribution Width CV 23.7 % (11.6-14.6); RBC Distribution Width SD 67.3 fl (35.1-43.9); Red Blood Count 3.23 M/mm3 (4.6-6.2)
[2020-05-24 20:52] LABS: Differential Indicated SCAN CRITERIA MET; White Blood Count 1.4 K/mm3 (4.4-11.0)
[2020-05-24 21:06] LABS: Anion Gap 8 (5-15); BUN 30 mg/dL (7-18); BUN/Creat Ratio 22.2 RATIO (10-20); Calcium,Total 8.6 mg/dL (8.5-10.1); Chloride 104 mmol/L (98-107); Creatinine, Serum 1.35 mg/dL (0.70-1.30); EST Glomerular Filtration Rate 54 mL/min (>60); Est Glom Filt Rate - Afr Amer 65 mL/min (>60); Estimated Creatinine Clearance 37.11 ml/min; Glucose 112 mg/dL (74-106); Potassium 4.1 mmol/L (3.5-5.1); Sodium Level 137 mmol/L (136-145)
[2020-05-24 21:23] LABS: Anisocytosis 1+; Red Cell Morphology N CHROM NORMAL (NORM C&C)
[2020-05-24 21:25] LABS: Platelet Estimate ADEQUATE (ADEQ)
[2020-05-24 22:12] VITALS: BP 116/73; PULSE 74; RESP 15; O2SAT 99
[2020-05-24 22:39] VITALS: BP 110/68; BP 123/71; BP 124/71; PULSE 77; PULSE 81; PULSE 84
--- NOTE | 2020-05-24 22:39 | ED.RN ---
PT REPORTS NOT FEELING DIZZY THIS TIME WHEN ASSESSED. NEW ORTHOS COMPLETED PER DR POWELL REQUEST AFTER 1L BOLUS.
[2020-05-24 23:21] VITALS: BP 124/61; PULSE 79; RESP 18; O2SAT 99
[2020-05-25 12:15] LABS: Pathologist Review Reviewed
== END 2020-05-24 23:22 | disposition home or self-care (01) ==
PROVIDERS: Emergency Provider Emergency Medicine; PCP Family Medicine
DX: I95.1 Orthostatic hypotension (principal); E86.0 Dehydration; N28.9 Disorder of kidney and ureter, unspecified; D70.1 Agranulocytosis secondary to cancer chemotherapy; T45.1X5A Adverse effect of antineoplastic and immunosuppressive drugs, initial encounter; E78.00 Pure hypercholesterolemia, unspecified; I10 Essential (primary) hypertension; C34.90 Malignant neoplasm of unspecified part of unspecified bronchus or lung; Z95.5 Presence of coronary angioplasty implant and graft; Z87.891 Personal history of nicotine dependence
CPT/HCPCS: 80048; 85025; 96360; 99284; J7030; A4216

== ENCOUNTER → 2020-06-06 | Outpatient (CLI) | payer MEDICARE, OTHER, SELFPAY ==
[2020-05-24 19:49] VITALS: BMI 20.9
[2020-06-07] VITALS (7 sets, daily range): BP systolic 125–152; BP diastolic 67–79; PULSE 88–98; RESP 16–20; TEMP 35.9–36.3; O2SAT 99–100; BMI 22.4
[2020-06-07] MEDS: 0.9% Saline Lock 10 ML Syringe IV (09:00)
== END | disposition home or self-care (01) ==
PROVIDERS: PCP Family Medicine; Referring Provider Internal Medicine Hematology & Oncology; Visit Provider Internal Medicine Hematology & Oncology
DX: C34.32 Malignant neoplasm of lower lobe, left bronchus or lung (principal); C78.00 Secondary malignant neoplasm of unspecified lung; C78.39 Secondary malignant neoplasm of other respiratory organs
CPT/HCPCS: 36430; 86850; 86900; 86901; 86920; 86922; J7040; P9016; A4216

== ENCOUNTER → 2020-09-12 14:19 | Outpatient (CLI) | payer MEDICARE, OTHER, SELFPAY ==
[2020-09-12 14:02] VITALS: BMI 23.7
[2020-09-12 15:06] LABS: Anion Gap 6 (5-15); BUN 22 mg/dL (7-18); BUN/Creat Ratio 14.1 RATIO (10-20); Chloride 108 mmol/L (98-107); Creatinine, Serum 1.56 mg/dL (0.70-1.30); EST Glomerular Filtration Rate 45 mL/min (>60); Est Glom Filt Rate - Afr Amer 55 mL/min (>60); Glucose 152 mg/dL (74-106); Potassium 4.2 mmol/L (3.5-5.1); Sodium Level 139 mmol/L (136-145)
[2020-09-12 15:16] LABS: Hematocrit 36.4 % (40-54); Hemoglobin 11.4 g/dL (13.0-16.5); Mean Corp Hgb Conc 31.3 g/dL (32-36); Mean Corpuscular Hgb 33.5 pg (27.0-32.0); Mean Corpuscular Volume 107.1 fL (80-94); Platelet Count 187 K/mm3 (150-450); RBC Distribution Width CV 16.5 % (11.6-14.6); RBC Distribution Width SD 64.4 fl (35.1-43.9); White Blood Count 9.4 K/mm3 (4.4-11.0)
== END ==
PROVIDERS: PCP Family Medicine; Referring Provider Surgery; Visit Provider Surgery
DX: Z01.818 Encounter for other preprocedural examination (principal)
CPT/HCPCS: 36415; 80048; 85027

== ENCOUNTER 2020-09-25 07:16 | Day surgery (SDC) | payer MEDICARE, SELFPAY ==
[2020-09-12 14:02] VITALS: BMI 23.7
[2020-09-24 07:58] VITALS: BMI 23.7
--- NOTE | 2020-09-25 07:53 | PCM.HP.BLA ---
Problem List (1) Presence of vena cava filter Status: Acute History and Physical Date of Admission: 09/25/20 Intake Visit Reasons: IVC FILTER REMOVAL Chief Complaint: Removal IVC Filter Box Blank Machine Feeder Required: No Is patient in pain?: No Allergies allopurinol Allergy (Verified 09/12/20 14:03) NEEDS FOLLOW-UP atorvastatin Adverse Reaction (Verified 09/12/20 14:03) Upset Stomach Medications Metoprolol Tartrate [Lopressor (beta latrell)] 50 mg PO BID 07/27/14 [History Confirmed 09/12/20] Pioglitazone [Actos] 30 mg PO DAILY 01/31/16 [History Confirmed 09/12/20] Acetaminophen [Tylenol] 500 mg PO Q6H PRN PRN 04/14/20 [History Confirmed 09/12/20] Esomeprazole Mag Trihydrate [Nexium] 40 mg PO DAILY 04/14/20 [History Confirmed 09/12/20] Folic Acid 1 mg PO DAILY 04/14/20 [History Confirmed 09/12/20] Gabapentin [Neurontin] 200 mg PO TID 04/14/20 [History Confirmed 09/12/20] Oxycodone [Oxyir] 5 mg PO Q6H PRN PRN 04/14/20 [History Confirmed 09/12/20] Promethazine HCl 25 mg PO Q6H PRN 04/14/20 [History Confirmed 09/12/20] Rosuvastatin Calcium [Crestor] 40 mg PO DAILY 04/14/20 [History Confirmed 09/12/20] Amitriptyline HCl 25 mg PO QHS 05/24/20 [History Confirmed 09/12/20] Apixaban [Eliquis] 5 mg PO BID 05/24/20 [History Confirmed 09/12/20] Glimepiride 1 mg PO DAILY 05/24/20 [History Confirmed 09/12/20] Prednisone 5 mg PO DAILY 05/24/20 [History Confirmed 09/12/20] [facility] Medical History (Updated 09/12/20 @ 14:[address] Tim Ba MD) Presence of vena cava filter (Acute) Diverticulitis large intestine (Resolved) Cancer of left lung (Acute) Left pleural effusion (Acute) Atrial fibrillation with RVR (Acute) Acute respiratory insufficiency (Acute) Pulmonary embolism (Acute) Thrombocytopenia (Acute) Vertigo (Chronic) Chest pain (Inactive) Hyperlipidemia (Chronic) Coronary artery disease (Chronic) Surgical History (Updated 09/12/20 @ 14:01 by Daxa Grewal) history IVC filter (Acute) Family History (Updated 09/12/20 @ 14:02 by Daxa Grewal) Mother Arthritis Daughter Breast cancer Social History (Updated 09/12/20 @ 14:[address] Tim Ba MD) Smoking Status: Former smoker alcohol intake: never substance use type: does not use HPI HPI HPI: HARPREET ADAME, is a 85 M who presents to the office today for surgical consultation regarding removal of an inferior vena cava filter. The patient is referred by Dr. Adam Cote for removal. It is of note that on April 16, 2020 because of pulmonary embolism with acute cor pulmonale and acute thrombocytopenia I assisted with placement of an inferior vena cava Ama filter. The patient now is felt to be stabilized for removal of the filter. He is on Eliquis therapy 2.5 mg twice daily. The patient is very hard of hearing. Communication is somewhat challenging HPI HPI HPI: HARPREET ADAME, is a 85 M who presents to the office today for ROS General General: No weight change, appetite, fatigue, colon cancer, breast cancer or weakness HEENT HEENT: No difficulty swallowing, eye injury, eye surgery, swollen glands or hoarseness Endo Endocrine: Yes diabetes mellitus; no thyroid disease, thyroid cancer, Hair loss, heat intolerance or cold intolerance Skin Skin: No rash or changing moles Breast Breast: No left breast lump, right breast lump, nipple discharge, breast pain, abnormal mammogram, abnormal US or breast enlargement Musc Musculoskeletal: Yes arthritis; no back problems, rheumatoid arthritis, gout or joint pain Cardio Cardiovascular: Yes heart disease and heart stent; no murmur, pacemaker, atrial fibrillation, high blood pressure, heart attack, palpitations, shortness of breat with exertion or chest pain Psych Psychiatric: No depression, anxiety or hearing voices Resp Respiratory: Yes shortness of breath, No sleep apnea, No cough, No COPD, No asthma, No emphysema, No wheezing Gastro Gastrointestinal: No abdominal pain, No nausea or vomiting, No diarrhea, No constipation, No blood in stool, No acid reflux, Yes hemorrhoids, No ulcers, No gallbladder problem, No black,tarry stools Luis Daniel Hematologic: Yes blood thinners, No blood disorders, No bleeding, No anemia, No blood clots Neuro Neurologic: No system reviewed and no additional complaints, except as docu, No as per HPI, No abnormal walking, No abnormal hearing, No abnormal movements, No abnormal speech, No behavioral changes, No burning sensations, No confusion, No seizure-like activity, No unsteadiness, No dizziness, No localized weakness, No frequent falls, No headache(s), No lack of coordination, No loss of vision, No memory loss, No numbness, No other visual disturbances, No radiating pain, No restless legs, No sensory deficit, No fainting, No tingling, No tremor(s), No weakness, No other Exam Const General: cooperative, no acute distress Nutritional Appearance: average body habitus Orientation: alert, awake Neck Neck: normal visual inspection, supple Chest Breast Palpation: No nipple discharge Resp Effort & Inspection: normal respiratory effort Other: Slightly diminished breath sounds on the left as compared to the right Cardio Rate: regular rate Rhythm: regular rhythm Heart Sounds: no murmurs Other: 2/6 systolic ejection murmur GI Palpation: soft Neuro Other: Extraordinarily hard of hearing Assessment & Plan Problems 1. Presence of vena cava filter Z95.828 Plan 85-year-old gentleman with presence of inferior vena cava filter since April 15, 2020 now appropriately able to tolerate anticoagulation and progressing well. A referral has been made for removal of the filter. I discussed with the patient the technique, benefit, risks, alternatives. There was some difficulty in communication secondary to the patient's severe hearing loss. He tolerated the placement well. He does have chronic stage III renal insufficiency. We will minimize dye utilization. I appreciate the ongoing opportunity of assisting with his surgical care Copy: Dr. Adam Cote and Dr. Jack Ba M.D., F.A.C.S. Orders Orders: Basic Metabolic Profile (BMP) Today Z01.818 CBC-Complete Blood Cnt No Diff Today Z01.818 Coding Level of Care Code Off vis,est,level 2 Diagnoses Presence of vena cava filter Z95.828 I have re-examined the patient. There are no clinical changes since date of exam. Procedure Criteria Procedure Type: Elective COVID Risk Discussion: The surgeon/proceduralist and patient have discussed in detail the risk of exposure to and/or potential harm posed by the COVID-19 virus with having a surgery/procedure at this time versus the risk of delaying the surgery/procedure. It is not possible to know either the risk of delaying the surgery or procedure or chance of getting an infection with perfect accuracy, but a joint decision was made between the patient and the surgeon/proceduralist to proceed at this time with the scheduled surgery/procedure as indicated on the consent form.
--- NOTE | 2020-09-25 08:29 | OP.PCM_ITS ---
Problem List (1) Presence of vena cava filter Status: Acute Report of Operation Date of Procedure: 09/25/20 Pre-Operative Diagnosis: Presence of inferior vena cava [place] filter Post-Operative Diagnosis: Same Surgery/Procedure Performed:: Inferior venacavogram with retrieval of inferior vena cava filter Description of Surgical Findings:: Timeout and informed consent was obtained. 85-year-old gentleman was taken to the special procedures lab placed upon the table. He received 25 mcg of fentanyl. The right neck was sterilely prepped and draped. 2% lidocaine was used as a local anesthetic. Under ultrasound guidance 5 cc was injected. I micropuncture was inserted under ultrasound guidance into the right internal jugular vein. Seldinger wire advancement. Micropuncture sheath. 035 J-wire. 5 [place] sheath. Using the 035 J-wire 5 [place] universal flush catheter was placed into the left common iliac. Using Isovue contrast at a rate of 15 cc a second per 15 cc of diluted contrast was used. The inferior venacavogram demonstrates widely patent bilateral, iliac veins widely patent inferior vena cava good positioning of the filter with no adverse appearance. The flush cath was removed over the J-wire. A 9 [place] sheath was used to predilate. The 8 [place] retrieval mechanism was inserted. A single snare was used to access the apex of the filter. It was then compressed and gently removed. Good removal was achieved. The patient tolerated it well. The filter was withdrawn into the external sheath and then nicely removed. The sheath mechanism was then removed. Pressure was held for hemostasis. He tolerated the procedure well no apparent complication blood loss minimal. Impression Normal inferior venacavogram with uncomplicated inferior vena cava filter retrieval Tim Ba M.D., F.A.C.S. Type of Anesthesia:: IV Sedation, Local
== END 2020-09-25 09:35 | disposition home or self-care (01) ==
LOC: CLSP 07:20
PROVIDERS: PCP Family Medicine; Referring Provider Surgery; Visit Provider Surgery
DX: Z95.828 Presence of other vascular implants and grafts (principal); E78.5 Hyperlipidemia, unspecified; I25.10 Atherosclerotic heart disease of native coronary artery without angina pectoris; I48.91 Unspecified atrial fibrillation; Z79.02 Long term (current) use of antithrombotics/antiplatelets; Z79.84 Long term (current) use of oral hypoglycemic drugs; Z79.899 Other long term (current) drug therapy; Z87.891 Personal history of nicotine dependence; Z86.711 Personal history of pulmonary embolism
CPT/HCPCS: 37193; 76937; 99152; C1773; J7040; Q9967; C1769

== ENCOUNTER 2020-11-14 09:25 | Inpatient (IN) | payer MEDICARE, SELFPAY ==
[2020-09-24 07:58] VITALS: BMI 23.7
[2020-11-14] VITALS (7 sets, daily range): BP systolic 98–121; BP diastolic 52–73; PULSE 62–83; RESP 16–24; TEMP 36.1–36.7; O2SAT 93–97; BMI 22.8; BMI 21.4
--- NOTE | 2020-11-14 09:38 | RAD_ITS ---
STUDY: X-RAY CHEST REASON FOR EXAM: Male, 85 years old. Weakness TECHNIQUE: Single AP portable view of the chest. COMPARISON: Comparison is made with prior study dated 04/13/2020. FINDINGS: EKG electrodes are seen. Since prior study, and slight increase in the left pleural effusion with left basilar infiltration and/or atelectasis and volume loss in the left hemithorax. Hyperexpansion of the right hemithorax. Scattered calcified granulomas. Normal size heart. Normal mediastinum and hector. Normal visualized pulmonary arteries. There is atherosclerotic calcification of the aortic arch with tortuosity. There are diffuse degenerative changes of the visualized thoracic spine. There is degenerative osteoarthritis of the bilateral shoulders. There is no demonstrated abnormality of the visualized soft tissue structures of the upper abdomen. RAD/Chest 1 View (Portable) IMPRESSION: Mild increased left pleural effusion with left basilar infiltration and/or atelectasis as compared to prior study. Electronically Signed: Jabari Page MD at 11:22 EST , Service support ,
--- NOTE | 2020-11-14 09:38 | CT_ITS ---
STUDY: CT BRAIN WITHOUT CONTRAST REASON FOR EXAM: Male, 85 years old. Weakness. History of lung cancer. RADIATION DOSAGE (If Supplied By Facility): CTDIvol = ( 44.99 ) mGy, DLP = ( 796.11 ) mGycm TECHNIQUE: Transaxial CT imaging of the brain was performed without administration of intravenous contrast material. Individualized dose optimization techniques were used for this CT. COMPARISON: Comparison is made with prior study dated 09/10/2015. FINDINGS: Normal soft tissue structures. Normal calvarium. A right-sided cochlear implant is seen overlying the posterior right parietal bone. There is mild cerebral atrophy with widening of the extra-axial spaces and ventricular dilatation. There are areas of decreased attenuation within the white matter tracts of the supratentorial brain, consistent with microvascular disease changes. There are small punctate calcifications of the basal ganglia which are seen in the aging brain as a normal variant. Normal brainstem. Normal cerebellum. There is no intracranial hemorrhage. There are no findings of an acute ischemic infarction. Atherosclerotic calcification of the vertebral arteries and cavernous portions of the internal carotid arteries bilaterally. Normal visualized paranasal sinuses. CT/Brain/Head without Contrast IMPRESSION: Chronic involutional changes of the brain. Electronically Signed: Jabari Page MD at 11:15 EST , Service support ,
--- NOTE | 2020-11-14 09:39 | EKG12_ITS ---
Test Reason : Blood Pressure : / mmHG Vent. Rate : 067 BPM Atrial Rate : 067 BPM P-R Int : 160 ms QRS Dur : 100 ms QT Int : 420 ms P-R-T Axes : 030 -02 033 degrees QTc Int : 443 ms Normal sinus rhythm Normal ECG When compared with ECG of 13-APR-2020 05:42, Sinus rhythm has replaced Atrial flutter Vent. rate has decreased BY [address] no longer depressed in Anterolateral leads T wave inversion no longer evident in Lateral leads Confirmed by MENDY BRICENO, SONIA ([id number]), scientific publications editor DOMONIQUE BASSETT ([id number]) on 11/26/2020 11:49:58 A M Referred By: LIZZY Confirmed By:AJITH BROOKE MD
--- NOTE | 2020-11-14 10:17 | ED.VIS.GEN ---
History of Present Illness Chief Complaint: Weakness Narrative: Patient presenting for evaluation secondary to generalized weakness. Patient has an underlying history of stage IV lung cancer and atrial fibrillation. He is currently scheduled to start radiation treatments for his lung cancer tomorrow. His daughter who is presenting with him today states that he has been generally declining over the course of the last week and specifically worse within the last 24 hours. Patient does not report that there is any laterality to his weakness he just feels generally malaised and overall weak. His daughter states that he has had decreased p.o. intake as far as food and fluids. Patient denies to me that he has any sort of chest pain increasing shortness of breath infectious type symptoms such as fever cough nausea vomiting diarrhea or any dark-colored stools. Patient is anticoagulated with Eliquis. He denies any visual changes. Denies any speech difficulty. No numbness. Review of systems otherwise negative. Past Medical History - Allergies and Home Meds Allergies/Adverse Reactions: Allergies allopurinol Allergy (Verified 11/14/20 09:28) NEEDS FOLLOW-UP atorvastatin Adverse Reaction (Verified 11/14/20 09:28) Upset Stomach Primary Care Physician: Jack Schaffer MD [Primary Care Provider] - Prior records reviewed: Yes Past Medical History: - - Atrial fibrillation, stage IV lung cancer Surgical History: no surgical history, - - Stent placement Lives: With Family Smoking Status: Former smoker Alcohol: None Drugs: None - Family History Maternal Family History: Family History (Last Updated 09/12/20 @ 14:02 by Daxa Grewal) Mother Arthritis Daughter Breast cancer Family History: Reports: No pertinent history Review of Systems General: Reports: Malaise Eyes: Denies: Visual changes - bilaterally, Diplopia ENT: Denies: Rhinorrhea, Sore throat Cardiovascular: Denies: Chest pain, Palpitations Respiratory: Denies: Dyspnea, Cough, Dyspnea on exertion Gastrointestinal: Denies: Abdominal pain, Nausea, Vomiting, Diarrhea, Melena, Hematochezia Genitourinary: Denies: Dysuria, Hematuria, Frequency Musculoskeletal: Denies: Back pain, Extremity Pain Skin: Denies: Rash, Wounds Neurological: Denies: Headache, Weakness, Numbness Physical Exam Vital Signs/Narrative: Vital Signs Temp Pulse Resp BP Pulse Ox 11/14/20 09:26 96.9 F L 69 16 102/56 L 96 Inital Vital Signs reviewed: Yes General: Cachectic Head: Normocephalic, Atraumatic Eyes: Perrl, EOMI. Negative for: Pale conjunctiva, Scleral icterus ENT: Moist mucous membranes, No rhinorrhea Neck: Supple, Nontender Cardiovascular: Regular rate, Regular rhythm, Murmur - 3 out of 6 systolic, - - 2+ radial pulses bilaterally symmetric Respiratory: No distress, CTA bilaterally, Chest nontender Abdomen: Soft, Nontender, Nondistended, Normal bowel sounds Back: Nontender, Normal Inspection Extremities: Nontender, No edema Skin: No rash, - - Very mildly pale Neurological: Alert, Oriented x3, Cranial nerves II-XII grossly intact, Normal Strength, Normal Sensation Psychological: Normal affect, Normal Mood Diagnostic/Tx/Re-eval Clinical Impression(s) from Imaging Studies Brain CT 11/14/20 09:38 IMPRESSION: Chronic involutional changes of the brain. Electronically Signed: Jabari Page MD at 11:15 EST , Service support , Chest X-Ray 11/14/20 09:38 IMPRESSION: Mild increased left pleural effusion with left basilar infiltration and/or atelectasis as compared to prior study. Electronically Signed: Jabari Page MD at 11:22 EST , Service support , Laboratory Data 11/14/20 11/14/20 10:21 10:21 WBC 10.0 RBC 3.57 L Hgb 11.2 L Hct 35.3 L MCV 98.9 H MCH 31.4 MCHC 31.7 L RDW Std Deviation 59.4 H RDW Coeff of Sinan 16.2 H Plt Count 195 MPV 9.1 Immature Gran % (Auto) 0.700 Neut % (Auto) 75.9 H Lymph % (Auto) 14.4 L Sargent % (Auto) 7.3 Eos % (Auto) 1.3 Baso % (Auto) 0.4 Absolute Neuts (auto) 7.6 Absolute Lymphs (auto) 1.43 Nucleated RBC % 0 Sodium 141 Potassium 3.4 L Chloride 105 Carbon Dioxide 30.0 Anion Gap 6 BUN 23 H Creatinine 1.39 H Estim Creat Clear Calc 35.70 Est GFR (MDRD) Af Amer 63 Est GFR (MDRD) Non-Af 52 L BUN/Creatinine Ratio 16.5 Glucose 96 Calcium 9.2 Total Bilirubin 0.40 AST 13 L ALT 23 Alkaline Phosphatase 239 H Troponin I 0.051 H Total Protein 6.6 Albumin 2.6 L Globulin 4.0 Albumin/Globulin Ratio 0.6 L TSH 2.47 - EKG Initial EKG Interpretation: - - Sinus rhythm [address] segments, normal T waves normal CT and QTc intervals. Mild flattening of T waves noted but no evidence of pathologic T wave inversion. No acute ischemia or arrhythmia. - Medical Decision Making Patient presented secondary to generalized weakness. Broad work-up was obtained. EKG demonstrated no ischemic signs. CBC shows no leukocytosis or significant anemia, hemoglobin is at baseline. Renal function is normal no electrolyte derangements. Patient did have an indeterminately elevated troponin at 0.05, he was administered aspirin. Patient's chest x-ray by my personal review as well as radiology demonstrates some worsening of his left-sided pleural effusions. CT imaging of the brain per radiology was found to be negative. This point I believe the patient requires admission for further cardiac work-up and treatment. Patient will be admitted under the hospitalist. ED Disposition - Plan for ED Patient: Disposition: Acute Care Hospital [facility] Diagnosis: Cancer of left lung, Elevated troponin, Weakness
[2020-11-14 10:30] LABS: Absolute Lymphocyte Count 1.43 X10^3/uL (0.83-4.51); Absolute Neutrophil Count 7.6 X10^3/uL (2.0-7.7); Basophil# 0.04 X10^3/uL; Basophil% 0.4 % (0-1); Eosinophil# 0.13 X10^3/uL; Eosinophils% 1.3 % (0-5); Hematocrit 35.3 % (40-54); Hemoglobin 11.2 g/dL (13.0-16.5); Lymphocyte # 1.43 X10^3/ul (4.0); Lymphocyte % 14.4 % (19-41); Mean Corp Hgb Conc 31.7 g/dL (32-36); Mean Corpuscular Hgb 31.4 pg (27.0-32.0); Mean Corpuscular Volume 98.9 fL (80-94); Mean Platelet Vol. 9.1 fl (6.2-12.0); Monocyte# 0.73 X10^3/uL; Monocyte% 7.3 % (0-10); NRBC Flagged by Analyzer 0 % (0-5); Neutrophil # 7.56 X10^3/uL (2.7-7.7); Neutrophil % 75.9 % (47-70); Platelet Count 195 K/mm3 (150-450); RBC Distribution Width CV 16.2 % (11.6-14.6); RBC Distribution Width SD 59.4 fl (35.1-43.9); Red Blood Count 3.57 M/mm3 (4.6-6.2)
[2020-11-14 10:50] LABS: ALB/GLOB Ratio 0.6 RATIO (0.9-2.4); AST(SGOT) 13 U/L (15-37); Alanine Aminotransfer ALT/SGPT 23 U/L (16-61); Albumin, Serum 2.6 g/dL (3.2-5.0); Alkaline Phosphatase 239 U/L (45-117); Anion Gap 6 (5-15); BUN 23 mg/dL (7-18); BUN/Creat Ratio 16.5 RATIO (10-20); Calcium,Total 9.2 mg/dL (8.5-10.1); Chloride 105 mmol/L (98-107); Creatinine, Serum 1.39 mg/dL (0.70-1.30); EST Glomerular Filtration Rate 52 mL/min (>60); Est Glom Filt Rate - Afr Amer 63 mL/min (>60); Glucose 96 mg/dL (74-106); Potassium 3.4 mmol/L (3.5-5.1); Protein, Total 6.6 g/dL (6.4-8.2); Sodium Level 141 mmol/L (136-145); Thyroid Stim Hormone (TSH) 2.47 uIU/mL (0.358-3.74)
[2020-11-14] MEDS: Aspirin 81 MG TAB.CHEW 324 MG PO (12:03)
[2020-11-14] MEDS: oxyCODONE 5 MG Tablet PO (12:03)
--- NOTE | 2020-11-14 12:03 | PCM.HP.STD ---
Problem List (1) Elevated troponin Status: Acute (2) Weakness Status: Acute (3) Pulmonary embolism Status: Chronic Qualifiers: Pulmonary embolism type: other (4) Vertigo Status: Chronic (5) Hyperlipidemia Status: Chronic Qualifiers: Hyperlipidemia type: unspecified Qualified Code(s): E78.5 - Hyperlipidemia, unspecified (6) Coronary artery disease Status: Chronic Qualifiers: Coronary Disease-Associated Artery/Lesion type: unspecified vessel or lesion type [place] vs. transplanted heart: [place] heart Associated angina: without angina Qualified Code(s): I25.10 - Atherosclerotic heart disease of [place] coronary artery without angina pectoris (7) Hypokalemia Status: Acute History of Present Illness Date of Admission: 11/14/20 Chief Complaint: Generalized weakness The patient is a 85 year old M with past medical history of metastatic lung CA, with mets to the pelvis, on chemotherapy, has had chemotherapy in May 2020, history of immunotherapy is been progressively getting weak over the past couple of weeks. Patient initially was living alone and moved in with his girlfriend. The last few weeks he has been progressively weak requiring more assistance. In the past 1 week, he moved back home and his family have been trying to assist. They have noticed a decline over the past 1 day where he has had decreased oral intake. He denies any chest pain or fever or chills or diarrhea or nausea or vomiting. Patient is due to start radiation therapy for mets to the sacrum. He has no sick contacts. Vitals in the ED with unremarkable. His admitting WBC count was 10.0, hemoglobin was 11.2 which was about his baseline, platelet count was 195, normal is 141, potassium 3.4, chloride 105, carbonate 30, BUN 23, creatinine 1.39, troponin 0.051. Chest x-ray showed increased left pleural effusion with left basilar infiltration/atelectasis. EKG shows normal sinus rhythm without acute ST-T changes. Past Medical History Past Medical History (Chronic Problems): Chronic Problems (Last Reviewed 09/12/20 @ 14:00 by Daxa Grewal) Pulmonary embolism (Chronic) Vertigo (Chronic) Hyperlipidemia (Chronic) Coronary artery disease (Chronic) Medical History: Medical History (Last Reviewed 09/12/20 @ 14:00 by Daxa Grewal) Presence of vena cava filter (Acute) Z95.828 Diverticulitis large intestine (Resolved) K57.32 Cancer of left lung (Acute) C34.92 Left pleural effusion (Acute) Atrial fibrillation with RVR (Acute) I48.91 Acute respiratory insufficiency (Acute) R06.89 Pulmonary embolism (Acute) I26.99 Thrombocytopenia (Acute) D69.6 Vertigo (Chronic) R42 Chest pain (Inactive) R07.9 Hyperlipidemia (Chronic) E78.5 Coronary artery disease (Chronic) I25.10 Allergies allopurinol Allergy (Verified 11/14/20 09:28) NEEDS FOLLOW-UP atorvastatin Adverse Reaction (Verified 11/14/20 09:28) Upset Stomach Home Medications: Ambulatory Orders Medication Instructions Recorded Metoprolol Tartrate [Lopressor 50 mg PO PRN PRN 07/27/14 (beta latrell)] Pioglitazone [Actos] 30 mg PO DAILY 01/31/16 Esomeprazole Mag Trihydrate 40 mg PO DAILY 04/14/20 [Nexium] Folic Acid 1 mg PO DAILY 04/14/20 Gabapentin [Neurontin] 300 mg PO TID 04/14/20 Rosuvastatin Calcium [Crestor] 40 mg PO DAILY 04/14/20 Apixaban [Eliquis] 2.5 mg PO BID 05/24/20 Prednisone 5 mg PO DAILY 05/24/20 Docusate Sodium 1 tab PO TID PRN 11/14/20 Methadone HCl [Dolophine] 5 mg PO Q12H 11/14/20 Potassium Chloride [Klor-Con M20] 20 meq PO DAILY 11/14/20 Surgical History: Surgical History (Last Updated 09/12/20 @ 14:01 by Daxa Grewal) history IVC filter Surgical History: - - Stent placement, s/p thoracotomy Lives: Alone Smoking Status: Former smoker Alcohol: None Drugs: None - *Family History Maternal Family History: Family History (Last Updated 09/12/20 @ 14:02 by Daxa Grewal) Mother Arthritis Daughter Breast cancer History Items: No pertinent history Paternal Family History: Family History (Last Updated 09/12/20 @ 14:02 by Daxa Grewal) Mother Arthritis Daughter Breast cancer History Items: Unknown Review of Systems Constitutional: Reports: Anorexia, Weakness, Fatigue. Denies: Chills, Fever, Night Sweats, Malaise, Weight Change Eyes: Denies: Blurred vision, Cataracts HEENT: Reports: Difficulty Hearing. Denies: Difficulty Swallowing, Head Aches, Hearing Changes, Sinus Congestion, Sinus Drainage Cardiovascular: Denies: Chest Pain, Claudication, Palpitations Respiratory: Denies: Cough, Hemoptysis, Shortness of breath at rest, Shortness of breath upon exertion, Sputum production Gastrointestinal: Denies: Abdominal Pain, Hematemesis, Hematochezia, Nausea, Vomiting Genitourinary: Denies: Dysuria Musculoskeletal: Denies: Joint Pain, Joint stiffness, Joint swelling, Joint Tenderness Skin: Denies: Rash, Wounds Neurological: Denies: Difficulty swallowing, Focal weakness, Numbness, Tingling Psychiatric: Denies: Anxiety, Depression, Homicidal Ideations, Suicidal Ideations Hematologic/ Lymphatic: Denies: Easy Bruising, Easy Bleeding VTE Information - Inpt Only VTE Present on Admission: No VTE Pharm Prophylaxis ordered?: Yes Patient Problems: Active and Suspected Problems (Last Reviewed 09/12/20 @ 14:00 by Daxa Grewal) Elevated troponin (Acute) Weakness (Acute) Cancer of left lung (Acute) - Physical Exam Vitals/I&O's: Vital Signs Temp Pulse Resp BP Pulse Ox 96.9 F L 69 16 102/56 L 96 11/14/20 09:26 11/14/20 09:26 11/14/20 09:26 11/14/20 09:26 11/14/20 09:26 Oxygen Delivery Method Room Air Weight: 64.41 kg Body Mass Index (BMI) 22.8 Finger Stick Blood Glucose 121 General: Alert, Oriented x3, Cooperative, No apparent distress HEENT: Atraumatic, PERRLA, EOMI, Normocephalic Oral: Moist Mucosa Neck: Supple Lungs: Diminished - With coarse crackles bilaterally, worse in the left lower lung zone Cardiovascular: Regular rate, Regular Rhythm, Normal S1, Normal S2 Abdomen: Bowel Sounds Present, Soft, Non Tender, Non-Distended, No Hepato-splenomegaly Extremities: No edema Skin: No rashes Musculoskeletal: No Tenderness to Palpation of Joints or Extremities Lymphatic: No Cervical, Supraclavicular, or Inguinal Adenopathy Neurological: Cranial nerves II-XII grossly intact, Neuro grossly intact Psych/Mental Status: Normal Affect, Appropriate Laboratory Results 11/14/20 10:21: WBC 10.0, RBC 3.57 L, Hgb 11.2 L, Hct 35.3 L, MCV 98.9 H, MCH 31.4, MCHC 31.7 L, RDW Std Deviation 59.4 H, RDW Coeff of Sinan 16.2 H, Plt Count 195, MPV 9.1, Immature Gran % (Auto) 0.700, Neut % (Auto) 75.9 H, Lymph % (Auto) 14.4 L, [place] % (Auto) 7.3, Eos % (Auto) 1.3, Baso % (Auto) 0.4, Absolute Neuts (auto) 7.6, Absolute Lymphs (auto) 1.43, Nucleated RBC % 0 11/14/20 10:21: Sodium 141, Potassium 3.4 L, Chloride 105, Carbon Dioxide 30.0, Anion Gap 6, BUN 23 H, Creatinine 1.39 H, Estim Creat Clear Calc 35.70, Est GFR (MDRD) Af Amer 63, Est GFR (MDRD) Non-Af 52 L, BUN/Creatinine Ratio 16.5, Glucose 96, Calcium 9.2, Total Bilirubin 0.40, AST 13 L, ALT 23, Alkaline Phosphatase 239 H, Troponin I 0.051 H, Total Protein 6.6, Albumin 2.6 L, Globulin 4.0, Albumin/Globulin Ratio 0.6 L, TSH 2.47 Assessment/Plan All Active Problems (Last Reviewed 09/12/20 @ 14:00 by Daxa Grewal) Elevated troponin (Acute) Weakness (Acute) Hypokalemia (Acute) Presence of vena cava filter (Acute) Diverticulitis large intestine (Resolved) Cancer of left lung (Acute) Left pleural effusion (Acute) Atrial fibrillation with RVR (Acute) Acute respiratory insufficiency (Acute) Thrombocytopenia (Acute) 1. Possible left sided pneumonia, likely post obstructive Patient without fever or hypoxia We will get records from Dr. Cote's office to see if this is new Would start on IV ceftriaxone and azithromycin 2. Hypokalemia, replace, recheck in a.m. 3. Indeterminate troponins, EKG unremarkable, will trend troponins 2D echo in March 2020 showed an EF of 70%. No diastolic dysfunction. 4. H/o PE, at this post IVC filter, on apixaban 5. Type II DM, on home Actos, will hold for now Continue with insulin sliding scale blood glucose checks AC at bedtime 6. Chronic pain syndrome, on chronic methadone, gabapentin, Palliative service following in the outpatient 7. Debility related to #1, 2, 3, PT/OT to evaluate and treat 8. DVT PPx- Apixaban 9. Code status - Full code I discussed and explained in details the various types of CODE STATUS-full code, DNR CCA, DNR CC with the patient and his daughter. He could not decide. He knows that he does not want to be in a persistent vegetative state. They will talk more amongst themselves and let us know. Time spent discussing CODE STATUS 18 minutes Inpatient E&M: 45625 Init Hosp L3
[2020-11-14] MEDS: 0.9% Normal Saline 1,000 ML 75 ML IV (13:46)
--- NOTE | 2020-11-14 13:48 | PCM.NTREPORT ---
Nutrition Therapy Report - History Nutrition Services has been consulted to:: Manage nutrient details of diet order Current diet / nutrition support order:: Cardiac Heart Healthy - Anthropometric Measurements Height:: 5 ft 8 in Weight:: 63.9 kg Body Mass Index (BMI):: 21.4 - Relevant Labs Relevant Labs:: RBC 3.57 M/mm3 (4.6-6.2) L 11/14/20 10:21 Hgb 11.2 g/dL (13.0-16.5) L 11/14/20 10:21 Hct 35.3 % (40-54) L 11/14/20 10:21 MCV 98.9 fL (80-94) H 11/14/20 10:21 MCHC 31.7 g/dL (32-36) L 11/14/20 10:21 RDW Std Deviation 59.4 fl (35.1-43.9) H 11/14/20 10:21 RDW Coeff of Sinan 16.2 % (11.6-14.6) H 11/14/20 10:21 Neut % (Auto) 75.9 % (47-70) H 11/14/20 10:21 Lymph % (Auto) 14.4 % (19-41) L 11/14/20 10:21 Potassium 3.4 mmol/L (3.5-5.1) L 11/14/20 10:21 BUN 23 mg/dL (7-18) H 11/14/20 10:21 Creatinine 1.39 mg/dL (0.70-1.30) H 11/14/20 10:21 Est GFR (MDRD) Non-Af 52 mL/min (>60) L 11/14/20 10:21 AST 13 U/L (15-37) L 11/14/20 10:21 Alkaline Phosphatase 239 U/L (45-117) H 11/14/20 10:21 Troponin I 0.051 ng/mL (<0.045) H 11/14/20 10:21 Albumin 2.6 g/dL (3.2-5.0) L 11/14/20 10:21 Albumin/Globulin Ratio 0.6 RATIO (0.9-2.4) L 11/14/20 10:21 - Assessment Food / Nutrition-Related History:: Pt diagnosed with cancer last February. Pt on Regular diet at home- was a good eater then but family reports appetite has diminished to <50% in past few weeks. Had been drinking boost, but stopped because it was making him feel too full. PO intake to be established on PCU - pt asked for a snack - got him orange juice and mary anne crackers before leaving his room. UBW: 68.18 kg - wt loss of 6.3% x 6 wks - sig for malnutrition. 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 76-96 gm pro/day (1.2-1.5 gm pro/kg). 1800 ml/day (1 ml/liset) - Food / Nutrient Delivery Interventions Summary of nutrition intervention:: Will liberalize diet to Regular general d/t s/s of malnutrition. Will order chocolate ensure enlive 4oz 4x/day with medpass. Nutrition education provided?: No - MNT Monitoring Further MNT monitoring and evaluation required?: Yes MNT Follow-up in:: 3-5 days - please call RD/LD if questions or concerns at x [phone]
--- NOTE | 2020-11-14 14:26 | CASEMGMT ---
RN indicated patient's daughter is in the room and she is worried about patient going home. SW went back to room. SW introduced self and role at [facility]. SW mentioned above and patient's daughter motioned to not talk about placement in front of patient. SW then briefly went over options home with home health and SNF. SW explained for either one we would give them a list and they would just need to give us 3 choices and we would work on making arrangements. SW did tell her he has to be in agreement with going somewhere, we cannot make him go. She verbalized understanding. SW told her we will see how he does with therapy and see what they recommend. LULU told her SW and RN CM will assist with d/c planning. She said patient is active with [facility]. She thanked SW for checking in with them. Francisca DENTON MSW
[2020-11-14] MEDS: Ceftriaxone 1 GM/50 ML BAG IV (14:41)
[2020-11-14] MEDS: Potassium Chloride Oral Tablet 20 MEQ 40 MEQ PO (14:44)
[2020-11-14] MEDS: Gabapentin 300 MG Capsule PO ×2 (15:22→21:57)
[2020-11-14] MEDS: Ondansetron 4 MG/2 ML Vial IV (16:14)
[2020-11-14] MEDS: 0.9% Saline Lock 10 ML Syringe IV (16:15)
[2020-11-14 17:00] LABS: Bedside Glucose 254 mg/dL (70-110)
[2020-11-14] MEDS: APIXABAN 2.5 MG TABLET PO (21:56)
[2020-11-14] MEDS: Atorvastatin Calcium 80 MG Tablet PO (21:57)
[2020-11-14 22:00] LABS: Bedside Glucose 63 mg/dL (70-110)
[2020-11-14 22:15] LABS: Bedside Glucose 125 mg/dL (70-110)
[2020-11-15 03:00] VITALS: PULSE 83
[2020-11-15 03:36] VITALS: BP 103/65; PULSE 87; RESP 16; TEMP 36.7; O2SAT 93
[2020-11-15 05:30] LABS: Absolute Lymphocyte Count 1.21 X10^3/uL (0.83-4.51); Basophil# 0.06 X10^3/uL; Basophil% 0.7 % (0-1); Eosinophil# 0.15 X10^3/uL; Eosinophils% 1.8 % (0-5); Hematocrit 39.1 % (40-54); Hemoglobin 12.1 g/dL (13.0-16.5); Lymphocyte # 1.21 X10^3/ul (4.0); Lymphocyte % 14.9 % (19-41); Mean Corp Hgb Conc 30.9 g/dL (32-36); Mean Corpuscular Hgb 32.2 pg (27.0-32.0); Mean Platelet Vol. 9.2 fl (6.2-12.0); Monocyte# 0.68 X10^3/uL; Monocyte% 8.4 % (0-10); NRBC Flagged by Analyzer 0 % (0-5); Neutrophil # 5.97 X10^3/uL (2.7-7.7); Neutrophil % 73.6 % (47-70); Platelet Count 169 K/mm3 (150-450); RBC Distribution Width CV 16.5 % (11.6-14.6); RBC Distribution Width SD 61.2 fl (35.1-43.9); Red Blood Count 3.76 M/mm3 (4.6-6.2); White Blood Count 8.1 K/mm3 (4.4-11.0)
[2020-11-15 05:49] LABS: ALB/GLOB Ratio 0.6 RATIO (0.9-2.4); AST(SGOT) 18 U/L (15-37); Alanine Aminotransfer ALT/SGPT 20 U/L (16-61); Albumin, Serum 2.4 g/dL (3.2-5.0); Alkaline Phosphatase 238 U/L (45-117); Anion Gap 6 (5-15); BUN 21 mg/dL (7-18); BUN/Creat Ratio 16.3 RATIO (10-20); Calcium,Total 8.9 mg/dL (8.5-10.1); Chloride 108 mmol/L (98-107); Creatinine, Serum 1.29 mg/dL (0.70-1.30); EST Glomerular Filtration Rate 56 mL/min (>60); Est Glom Filt Rate - Afr Amer 68 mL/min (>60); Estimated Creatinine Clearance 38.53 ml/min; Globulin 3.7 g/dL (2.2-4.2); Glucose 82 mg/dL (74-106); Potassium 4.2 mmol/L (3.5-5.1); Protein, Total 6.1 g/dL (6.4-8.2); Sodium Level 139 mmol/L (136-145)
[2020-11-15] MEDS: Gabapentin 300 MG Capsule PO (06:30)
[2020-11-15 06:40] LABS: Bedside Glucose 96 mg/dL (70-110)
[2020-11-15 07:00] VITALS: PULSE 84
[2020-11-15] MEDS: Acetaminophen 325 MG Tablet 650 MG PO (08:42)
--- NOTE | 2020-11-15 08:42 | CON.PCM_ITS ---
- Problem List (1) Cancer of left lung Status: Acute Subjective Chief Complaint: Removal IVC Filter History of Present Illness: HPI: Patient is an 85-year-old male with a past medical history significant for DM2?(peripheral neuropathy), mixed hyperlipidemia, essential hypertension,?AAA, hearing loss, stage III chronic kidney disease, diverticulosis, PVD (bilateral carotid artery disease) and vertigo. ? He was evaluated 09/02/2019 for complaint of left upper quadrant pain that was made worse with taking a deep breath. Chest x-ray evidently showed parenchymal consolidation in the left lower lobe with associated pleural effusion. Cough started to worsen about 10 days later and he was seen at urgent care. He was given a prescription for Augmentin and Z-Luis. A chest x-ray on 09/20/2019 demonstrated increased opacification left lower hemithorax and a CT chest was obtained. ? CT chest 09/26/2019: Lung parenchyma and pleura: ?There is a [id number] left-sided pleural effusion. ?Associated volume loss and atelectasis seen within the lingula and left lower lobe. ?A few calcified granulomas are incidentally seen. ?Mild reticulation is seen within the periphery of the lungs and lower lobes, bilaterally, suggesting early interstitial lung disease. ?? There is mild emphysema with mild, diffuse bronchiectasis. ?There is no right-sided pleural effusion. ?There is no pneumothorax or endobronchial lesion. Thoracic inlet, heart, and mediastinum: ?There are prominent, less than 1 cm mediastinal lymph nodes, likely reactive. ?There are calcified mediastinal and right perihilar lymph nodes from remote granulomatous disease. ?No emily axillary or hilar lymphadenopathy is identified. ?? Atherosclerotic calcifications are present within the thoracic aorta and coronary arteries. ?The heart is normal in size, and there is no significant pericardial effusion. ?A tiny hiatal hernia. ?Prominent distal paraesophageal lymph nodes are likely reactive. Bones and soft tissues: ?There is scoliosis, osteopenia, and multilevel degenerative change with thoracic spine. ?There is no destructive bony lesion. ?There is diffuse idiopathic skeletal hyperostosis. Upper abdomen: ?There is mild, nonspecific bilateral perinephric fat stranding. ?There is a left renal parapelvic cysts. ?The gallbladder is relatively collapsed but is otherwise unremarkable. ? Underwent thoracentesis on 11/07/2019. 1.2 L of clear straw-colored fluid was removed. ? Ultimately required left VATS with left posterior lateral thoracotomy along with evacuation loculated pleural effusion and total decortication a left lung on 01/31/2020 for recurrent pleural effusion. ? Pathology: FINAL DIAGNOSIS: A) PLEURAL EXUDATE, EXCISION - FRAGMENTS OF FIBROUS TISSUE WITH ATTACHED FIBRINOUS MATERIAL AND FRAGMENTS OF BENIGN ADIPOSE TISSUE. B) PLEURAL RIND, EXCISION - ADENOCARCINOMA. ?SEE COMMENT. ? CT A/P 02/17/2020: 1. ?No mass or lymphadenopathy in the abdomen or pelvis 2. ?Small distal abdominal aortic aneurysm 3. ?Loculated left pleural effusion and left pleural thickening. ?There are some bubbles of gas in the pleural effusion which may be due to the recent thoracotomy and chest tube removal. 4. ?Small consolidation in the left lower lobe. ? PET 03/01/2020: 1. ?HEAD and NECK: No evidence of focal uptake to suggest FDG avid neoplastic process. 2. ?CHEST: Diffuse pleural thickening with small loculated pleural effusion associated with focal increased FDG uptake, metastasis not excluded. ?Mediastinal mildly FDG avid lymph nodes could be reactive or metastases. 3. ?ABDOMEN/PELVIS: No evidence of focal uptake to suggest FDG avid neoplastic process.. 4. ?EXTREMITIES/SKELETON: ?No evidence of focal uptake to suggest FDG avid neoplastic process. ? Head and Neck: ?No evidence of focal uptake to suggest FDG avid neoplastic process. No significant anatomical abnormality to the limits of low dose noncontrast CT scan. Chest: ?Postsurgical changes with left thoracotomy. ?There is diffuse pleural thickening with small loculated pleural effusion. There is increased FDG uptake throughout the thickened pleura. ?For example, focal thickening in the visualized pleural of left lung base is measuring 5.4 x 1.9 cm with max SUV 6.8. ?There is trapped air within the small left pleural effusion. There is small paratracheal, prevascular hilar lymph nodes with mildly increased FDG uptake, which could be reactive or metastases. ?For example, a 1.9 x 1.6 cm left paratracheal lymph node with max SUV 4.8. ??Another example of 1.5 x 0.8 cm right paratracheal lymph node with max SUV 3.7. Abdomen and Pelvis: ?No evidence of focal uptake to suggest FDG avid neoplastic process. Colonic diverticulosis. ?Focal uptake in the sigmoid colon without associated CT abnormality, probably physiological. Extremities/Skeleton: ?No evidence of focal uptake to suggest FDG avid neoplastic process. Postsurgical changes left posterior chest wall with partial rib resection. ? Previous therapy: 1) Pemetrexed/carboplatin/pembrolizumab. Recent PET scan demonstrated progressive disease in the thorax as well as new bone metastases. He has been becoming weaker over the last several weeks. His appetite has declined and he was not hydrating very well. He is also been having more pain in the left lateral lower rib cage. He was on methadone 5 mg every 12 hours but became much more sedated and the dose was decreased to 5 mg daily. This past weekend the dose was increased back to every 12 hours in an effort to better control the pain. He was seen in consultation for potential palliative radiation. However over the last 2 days his condition worsened with more lethargy and his daughter was not able to help stand him up out of the bed. He presented to the ED. Initially managed for possible community-acquired pneumonia based on chest x-ray showing left lower lung infiltrative process but he had no fever or leukocytosis. No worsening of cough. Antibiotics have been discontinued. He only complains of the left lower rib pain today. Otherwise he has no complaints. He remains weak but is conversant. Past Medical History: Chronic Problems (Last Reviewed 09/12/20 @ 14:00 by Daxa Grewal) Pulmonary embolism (Chronic) Vertigo (Chronic) Hyperlipidemia (Chronic) Coronary artery disease (Chronic) Past Medical/Surgical History: Past Medical History - Most Recent Inpatient Visit Past Medical History Start: 11/14/20 12:53 Text: Status: Complete Freq: ONCE Protocol: Document 11/14/20 13:04 UBALDO (Rec: 11/14/20 13:09 UBALDO [id number]) BMI Required to complete PMH What is Patient's BMI 21.4 Past Medical History Unable History Recalled Yes Query Text:Pt Unable/Family Not Present Neurologic Medical History Hx Stroke/TIA No Hx Dementia/Alzheimer's No Hx Parkinson's Disease No Hx Seizures No Hx Multiple Sclerosis No Hx Migraines No Cardiac Medical History VTE Present on Admission No Hx of Deep Vein Thrombosis/VTE/PE Yes: PE 04/2020 Hx Hypertension Yes Hx Chest Pain/Angina No Hx Heart Attack No Hx Cardiac Surgery/Stents/Etc. Yes: STENTS Hx Heart Failure No Hx Pacemaker/AICD No Hx Irregular Heartbeat and/or Afib Yes Hx Anticoagulant Therapy Yes: Eliquis Query Text:(Coumadin, Aspirin, Plavix, Xarelto, etc.) Hx Pain in Legs when Walking/Leg Cramps No Respiratory Medical History Hx COPD No Hx Emphysema No Hx Smoking Yes: CIGAR OCC, QUIT 45 YRS AGO SMOKED 25 YRS Smoking Status Former smoker Hx Smoking Cessation Date 09/14/74 Hx Smoking Cessation Counseling No Hx Smoking Exposure No Hx Tobacco Use in last 12 months No Hx of Pipe Smoking No Hx Sleep Apnea No Do you snore loudly (louder than talking No or can be heard through closed doors)? Do you often feel tired/ fatigued/ No sleepy during daytime? Has anyone observed you stop breathing No during sleep? STOP Results Negative GI Medical History Hx Ulcer No Hx Hepatitis No Hx Cirrhosis No Hx GI Bleed No Hx Unplanned Weight Loss Yes Genitourinary Medical History Indwelling Catheter in Place on Arrival/ No Admission Hx Renal Disease No Hx Dialysis No Musculoskeletal History Hx Arthritis Yes Hx Rheumatoid Arthritis No Endocrine Medical History Hx Diabetes Yes: ACTOS Hx Thyroid Disease No Hematologic Medical History Hx of Blood Transfusion Yes Hx of Transfusion in last 3 Months No Ever experience any problems with No transfusion(s)? Hx of Preganancy in last 3 Months N/A Nurse Filling Out Transfusion & JSEE Questions: Date: 11/14/20 Time: 13:08 Psycho/Social Medical History Hx Depression No Hx Anxiety No Hx Behavior Disorder No Hx Alcohol Use No Hx Substance Use No Other Medical History Hx Blood Disorders No Hx Anemia Yes Hx Cancer Yes: hx skin ca, current lung ca Hx Drug Resistant Organism No Wound/Pressure Injury Present on Arrival No /Admission Query Text:If yes, chart assessment in Shift/Clinical Findings Central Line/PICC/VAD Present on Arrival No /Admission Antibiotics within last 7 days? No Risk for Readmission Number of Risk Factors 6 At Risk for Readmission Patient is At Risk For Readmission Patient is eligible for Call Back Y Past Medical History (Last Reviewed 09/12/20 @ 14:00 by Daxa Grewal) Presence of vena cava filter (Acute) Diverticulitis large intestine (Resolved) Cancer of left lung (Acute) Left pleural effusion (Acute) Atrial fibrillation with RVR (Acute) Acute respiratory insufficiency (Acute) Pulmonary embolism (Chronic) Thrombocytopenia (Acute) Vertigo (Chronic) Chest pain (Inactive) Hyperlipidemia (Chronic) Coronary artery disease (Chronic) Past Surgical History (Last Updated 09/12/20 @ 14:01 by Daxa Grewal) history IVC filter (Acute) Paternal Family History: Family History (Last Updated 09/12/20 @ 14:02 by Daxa Grewal) Mother Arthritis Daughter Breast cancer Family History: Unknown Maternal Family History: Family History (Last Updated 09/12/20 @ 14:02 by Daxa Grewal) Mother Arthritis Daughter Breast cancer Family History: No pertinent history - Social History Lives: Alone Smoking Status: Former smoker Alcohol: None Drugs: None Allergies/Adverse Reactions: Allergy/AdvReac Type Severity Reaction Status Date / Time allopurinol Allergy NEEDS Verified 11/14/20 09:28 FOLLOW-UP atorvastatin AdvReac Upset Verified 11/14/20 09:28 Stomach Vital Signs Temperature 98.0 F 11/15/20 03:36 Temperature Source Temporal 11/15/20 03:36 Pulse Rate 84 11/15/20 07:00 Pulse Strength Normal (2+) 11/14/20 20:32 Respiratory Rate 16 11/15/20 03:36 Respiratory Effort Non-Labored 11/14/20 13:45 Respiratory Depth Normal 11/14/20 13:45 Respiratory Pattern Normal 11/14/20 13:45 Blood Pressure 103/65 11/15/20 03:36 Blood Pressure Mean 77 11/15/20 03:36 Blood Pressure Source Monitor 11/15/20 03:36 Blood Pressure Position Semi-Fowlers 11/15/20 03:36 Blood Pressure Location Right Arm 11/15/20 03:36 Pulse Ox 93 11/15/20 03:36 Oxygen Delivery Method Room Air 11/15/20 03:36 - Physical Exam General: Alert Cardiac:: Regular rhythm Laboratory Data: Laboratory Tests 11/15/20 11/15/20 11/15/20 Range/Units 06:32 05:20 05:20 WBC 8.1 (4.4-11.0) K/mm3 RBC 3.76 L (4.6-6.2) M/mm3 Hgb 12.1 L (13.0-16.5) g/dL Hct 39.1 L (40-54) % MCV 104.0 H D (80-94) fL MCH 32.2 H (27.0-32.0) pg MCHC 30.9 L (32-36) g/dL RDW Std Deviation 61.2 H (35.1-43.9) fl RDW Coeff of Sinan 16.5 H (11.6-14.6) % Plt Count 169 (150-450) K/mm3 MPV 9.2 (6.2-12.0) fl Immature Gran % (Auto) 0.600 (0.0-0.9) % Neut % (Auto) 73.6 H (47-70) % Lymph % (Auto) 14.9 L (19-41) % Monroe % (Auto) 8.4 (0-10) % Eos % (Auto) 1.8 (0-5) % Baso % (Auto) 0.7 (0-1) % Absolute Neuts (auto) 6.0 (2.0-7.7) X10^3/uL Absolute Lymphs (auto) 1.21 (0.83-4.51) X10^3/uL Nucleated RBC % 0 (0-5) % Sodium 139 (136-145) mmol/L Potassium 4.2 (3.5-5.1) mmol/L Chloride 108 H (98-107) mmol/L Carbon Dioxide 25.0 (21.0-32.0) mmol/L Anion Gap 6 (5-15) BUN 21 H (7-18) mg/dL Creatinine 1.29 (0.70-1.30) mg/dL Estim Creat Clear Calc 38.53 ml/min Est GFR (MDRD) Af Amer 68 (>60) mL/min Est GFR (MDRD) Non-Af 56 L (>60) mL/min BUN/Creatinine Ratio 16.3 (10-20) RATIO Glucose 82 (74-106) mg/dL Calcium 8.9 (8.5-10.1) mg/dL Total Bilirubin 0.40 (0.20-1.00) mg/dL AST 18 (15-37) U/L ALT 20 (16-61) U/L Alkaline Phosphatase 238 H (45-117) U/L Troponin I (<0.045) ng/mL Total Protein 6.1 L (6.4-8.2) g/dL Albumin 2.4 L (3.2-5.0) g/dL Globulin 3.7 (2.2-4.2) g/dL Albumin/Globulin Ratio 0.6 L (0.9-2.4) RATIO TSH (0.358-3.74) uIU/mL POC Glucose 96 (70-110) mg/dL 11/14/20 11/14/20 11/14/20 Range/Units 22:13 21:51 20:50 WBC (4.4-11.0) K/mm3 RBC (4.6-6.2) M/mm3 Hgb (13.0-16.5) g/dL Hct (40-54) % MCV (80-94) fL MCH (27.0-32.0) pg MCHC (32-36) g/dL RDW Std Deviation (35.1-43.9) fl RDW Coeff of Sinan (11.6-14.6) % Plt Count (150-450) K/mm3 MPV (6.2-12.0) fl Immature Gran % (Auto) (0.0-0.9) % Neut % (Auto) (47-70) % Lymph % (Auto) (19-41) % Monroe % (Auto) (0-10) % Eos % (Auto) (0-5) % Baso % (Auto) (0-1) % Absolute Neuts (auto) (2.0-7.7) X10^3/uL Absolute Lymphs (auto) (0.83-4.51) X10^3/uL Nucleated RBC % (0-5) % Sodium (136-145) mmol/L Potassium (3.5-5.1) mmol/L Chloride (98-107) mmol/L Carbon Dioxide (21.0-32.0) mmol/L Anion Gap (5-15) BUN (7-18) mg/dL Creatinine (0.70-1.30) mg/dL Estim Creat Clear Calc ml/min Est GFR (MDRD) Af Amer (>60) mL/min Est GFR (MDRD) Non-Af (>60) mL/min BUN/Creatinine Ratio (10-20) RATIO Glucose (74-106) mg/dL Calcium (8.5-10.1) mg/dL Total Bilirubin (0.20-1.00) mg/dL AST (15-37) U/L ALT (16-61) U/L Alkaline Phosphatase (45-117) U/L Troponin I 0.056 H (<0.045) ng/mL Total Protein (6.4-8.2) g/dL Albumin (3.2-5.0) g/dL Globulin (2.2-4.2) g/dL Albumin/Globulin Ratio (0.9-2.4) RATIO TSH (0.358-3.74) uIU/mL POC Glucose 125 H 63 L (70-110) mg/dL 11/14/20 11/14/20 11/14/20 Range/Units 18:20 16:49 15:31 WBC (4.4-11.0) K/mm3 RBC (4.6-6.2) M/mm3 Hgb (13.0-16.5) g/dL Hct (40-54) % MCV (80-94) fL MCH (27.0-32.0) pg MCHC (32-36) g/dL RDW Std Deviation (35.1-43.9) fl RDW Coeff of Sinan (11.6-14.6) % Plt Count (150-450) K/mm3 MPV (6.2-12.0) fl Immature Gran % (Auto) (0.0-0.9) % Neut % (Auto) (47-70) % Lymph % (Auto) (19-41) % Monroe % (Auto) (0-10) % Eos % (Auto) (0-5) % Baso % (Auto) (0-1) % Absolute Neuts (auto) (2.0-7.7) X10^3/uL Absolute Lymphs (auto) (0.83-4.51) X10^3/uL Nucleated RBC % (0-5) % Sodium (136-145) mmol/L Potassium (3.5-5.1) mmol/L Chloride (98-107) mmol/L Carbon Dioxide (21.0-32.0) mmol/L Anion Gap (5-15) BUN (7-18) mg/dL Creatinine (0.70-1.30) mg/dL Estim Creat Clear Calc ml/min Est GFR (MDRD) Af Amer (>60) mL/min Est GFR (MDRD) Non-Af (>60) mL/min BUN/Creatinine Ratio (10-20) RATIO Glucose (74-106) mg/dL Calcium (8.5-10.1) mg/dL Total Bilirubin (0.20-1.00) mg/dL AST (15-37) U/L ALT (16-61) U/L Alkaline Phosphatase (45-117) U/L Troponin I 0.061 H 0.069 H (<0.045) ng/mL Total Protein (6.4-8.2) g/dL Albumin (3.2-5.0) g/dL Globulin (2.2-4.2) g/dL Albumin/Globulin Ratio (0.9-2.4) RATIO TSH (0.358-3.74) uIU/mL POC Glucose 254 H (70-110) mg/dL 11/14/20 11/14/20 Range/Units 10:21 10:21 WBC 10.0 (4.4-11.0) K/mm3 RBC 3.57 L (4.6-6.2) M/mm3 Hgb 11.2 L (13.0-16.5) g/dL Hct 35.3 L (40-54) % MCV 98.9 H (80-94) fL MCH 31.4 (27.0-32.0) pg MCHC 31.7 L (32-36) g/dL RDW Std Deviation 59.4 H (35.1-43.9) fl RDW Coeff of Sinan 16.2 H (11.6-14.6) % Plt Count 195 (150-450) K/mm3 MPV 9.1 (6.2-12.0) fl Immature Gran % (Auto) 0.700 (0.0-0.9) % Neut % (Auto) 75.9 H (47-70) % Lymph % (Auto) 14.4 L (19-41) % Monroe % (Auto) 7.3 (0-10) % Eos % (Auto) 1.3 (0-5) % Baso % (Auto) 0.4 (0-1) % Absolute Neuts (auto) 7.6 (2.0-7.7) X10^3/uL Absolute Lymphs (auto) 1.43 (0.83-4.51) X10^3/uL Nucleated RBC % 0 (0-5) % Sodium 141 (136-145) mmol/L Potassium 3.4 L (3.5-5.1) mmol/L Chloride 105 (98-107) mmol/L Carbon Dioxide 30.0 (21.0-32.0) mmol/L Anion Gap 6 (5-15) BUN 23 H (7-18) mg/dL Creatinine 1.39 H (0.70-1.30) mg/dL Estim Creat Clear Calc 35.70 ml/min Est GFR (MDRD) Af Amer 63 (>60) mL/min Est GFR (MDRD) Non-Af 52 L (>60) mL/min BUN/Creatinine Ratio 16.5 (10-20) RATIO Glucose 96 (74-106) mg/dL Calcium 9.2 (8.5-10.1) mg/dL Total Bilirubin 0.40 (0.20-1.00) mg/dL AST 13 L (15-37) U/L ALT 23 (16-61) U/L Alkaline Phosphatase 239 H (45-117) U/L Troponin I 0.051 H (<0.045) ng/mL Total Protein 6.6 (6.4-8.2) g/dL Albumin 2.6 L (3.2-5.0) g/dL Globulin 4.0 (2.2-4.2) g/dL Albumin/Globulin Ratio 0.6 L (0.9-2.4) RATIO TSH 2.47 (0.358-3.74) uIU/mL POC Glucose (70-110) mg/dL Diagnostic Data: Diagnostic Data Brain CT 11/14/20 09:38 IMPRESSION: Chronic involutional changes of the brain. Electronically Signed: Jabari Page MD at 11:15 EST , Service support , Chest X-Ray 11/14/20 09:38 IMPRESSION: Mild increased left pleural effusion with left basilar infiltration and/or atelectasis as compared to prior study. Electronically Signed: Jabari Page MD at 11:22 EST , Service support , Assessment and Plan 1) Metastatic NSCLC. Assessment: -In summary the patient is an 85 yo male who was found to have adenocarcinoma of the lung after presenting with pleural effusion. He has remote smoking history. Disease appears limited to pleura and possibly mediastinal nodes. No current evidence of distant metastases. Cannot be cured with surgery. -PDL-1 0%. -ALK translocation negative. -BRAF No variant detected -EGFR - No variant detected -HER2 (ERBB2) - No variant detected -KRAS - A sequence change c.37G>T ([id number]) in exon 2 was detected at approximately 9% allelic proportion -MET- No variant detected. -He required two emergency room visits following each cycle of chemotherapy. First cycle he was admitted. Developed significant cytopenia following cycle 2 despite dose reduction of chemotherapy. Thereafter received pembrolizumab. -Worsening pain left lower thoracic area. -KPS is 30%. -Given declining KPS and progressive disease with new bone metastases, hospice care indicated. Discussed with patient and family. He is agreeable. Plan: -Consult hospice for inpatient management of pain. Medications: Prescriptions This Visit Medication Instructions Recorded Docusate Sodium 1 tab PO TID PRN 11/14/20 Methadone HCl [Dolophine] 5 mg PO Q12H 11/14/20 Potassium Chloride [Klor-Con M20] 20 meq PO DAILY 11/14/20 Medications Added to Medication List This Visit Category Date Time Status Folic Acid Med 11/15/20 08:00 Active 1 mg PO DAILYCM Methadone HCl Med 11/15/20 10:00 Active 5 mg PO DAILY Pantoprazole Sodium [Protonix] Med 11/15/20 10:00 Active 40 mg PO DAILY predniSONE tablet Med 11/15/20 08:00 Active 5 mg PO DAILYCM Primary Care Provider: Dr. Jack Schaffer MD Referring Provider:
[2020-11-15] MEDS: 0.9% Saline Lock 10 ML Syringe IV ×2 (08:47→11:52)
[2020-11-15 08:55] VITALS: BP 114/63; PULSE 81; RESP 19; TEMP 37; O2SAT 95
--- NOTE | 2020-11-15 08:56 | DCINST_ITS ---
- Discharge Diagnoses Current Active Problems: Current Active and Chronic Problems (Last Reviewed 09/12/20 @ 14:00 by Daxa Grewal) Elevated troponin (Acute) Weakness (Acute) Hypokalemia (Acute) Cancer of left lung (Acute) Pulmonary embolism (Chronic) Vertigo (Chronic) Hyperlipidemia (Chronic) Coronary artery disease (Chronic) Reason(s) for Visit for Discharge Instructions: Generalised weakness You will use the following diet at home:: Regular Your food should be the consistency of: Regular Your liquids should be the consistency of: Regular/Thin Discharge Activity: Return to Normal Activity Allergies/Adverse Reactions: Allergies allopurinol Allergy (Verified 11/14/20 09:28) NEEDS FOLLOW-UP atorvastatin Adverse Reaction (Verified 11/14/20 09:28) Upset Stomach Medications to take at Discharge Metoprolol Tartrate [Lopressor (beta latrell)] 50 mg PO PRN PRN 07/27/14 Pioglitazone [Actos] 30 mg PO DAILY 01/31/16 Esomeprazole Mag Trihydrate [Nexium] 40 mg PO DAILY 04/14/20 Folic Acid 1 mg PO DAILY 04/14/20 Gabapentin [Neurontin] 300 mg PO TID 04/14/20 Rosuvastatin Calcium [Crestor] 40 mg PO DAILY 04/14/20 Apixaban [Eliquis] 2.5 mg PO BID 05/24/20 Prednisone 5 mg PO DAILY 05/24/20 Docusate Sodium 1 tab PO TID PRN 11/14/20 Methadone HCl 5 mg PO Q12H 11/14/20 Potassium Chloride [Klor-Con M20] 20 meq PO DAILY 11/14/20 Primary Care Physician: Jack Schaffer MD [Primary Care Provider] - Test Results: Test results from this visit will be discussed in further detail at your follow- up appointment, if applicable. Proposed Discharge Date: 11/15/20
--- NOTE | 2020-11-15 08:56 | PCM.DC.SUM ---
Discharge Date and Diagnosis - Problem List Patient Problems: Active and Suspected Problems (Last Reviewed 09/12/20 @ 14:00 by Daxa Grewal) Elevated troponin (Acute) Weakness (Acute) Hypokalemia (Acute) Cancer of left lung (Acute) Date of Admission: 11/14/20 Date of Discharge: 11/15/20 - Primary Discharge Diagnosis Acute Problems: Active Problems (Last Reviewed 09/12/20 @ 14:00 by Daxa Grewal) Debility Left-sided pneumonia ruled out Hypokalemia Indeterminant troponin Acute on chronic pain Malnutrition, severe protein calorie malnutrition - Secondary Discharge Diagnosis Chronic Problems: Chronic Problems (Last Reviewed 09/12/20 @ 14:00 by Daxa Grewal) Pulmonary embolism (Chronic) Vertigo (Chronic) Hyperlipidemia (Chronic) Coronary artery disease (Chronic) Hospital Course and Treatment Imaging Results: Clinical Impression(s) from Imaging Studies Brain CT 11/14/20 09:38 IMPRESSION: Chronic involutional changes of the brain. Electronically Signed: Jabari Page MD at 11:15 EST , Service support , Chest X-Ray 11/14/20 09:38 IMPRESSION: Mild increased left pleural effusion with left basilar infiltration and/or atelectasis as compared to prior study. 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 Patient initially was living alone and moved in with his girlfriend. The last few weeks he has been progressively weak requiring more assistance. In the past 1 week, he moved back home and his family have been trying to assist. They have noticed a decline over the past 1 day where he has had decreased oral intake. He denies any chest pain or fever or chills or diarrhea or nausea or vomiting. Patient is due to start radiation therapy for mets to the sacrum. He has had no sick contacts. His work-up was suggestive of possible left pleural effusion with left basilar infiltration/atelectasis. Patient was initially started on empiric antibiotics. This left-sided infiltrate versus chronic pleural-based cancer. He recommended patient be transition to hospice as he has been declining rapidly over the past 1 week. Discussed CODE STATUS with her daughters at the bedside. Daughters agreed to DNR CC with transition to hospice inpatient facility. Patient was too lethargic to participate in conversation. He was accepted by hospice and transferred to the inpatient hospice facility. Patient Problems: Active and Suspected Problems (Last Reviewed 09/12/20 @ 14:00 by Daxa Grewal) Elevated troponin (Acute) Weakness (Acute) Hypokalemia (Acute) Cancer of left lung (Acute) Subjective: On the day of discharge, patient was seen and examined. No acute events overnight. Pain fairly controlled . He has been sleeping for the most part. His daughters are by the bedside. Patient has been accepted by hospice and will be transferred to the inpatient hospice facility. Objective: General: Alert, Oriented x3, Cooperative, No apparent distress, appeared frail HEENT: Atraumatic, PERRLA, EOMI, Normocephalic Oral: Moist Mucosa Neck: Supple Lungs: Diminished - With coarse crackles bilaterally, worse in the left lower lung zone Cardiovascular: Regular rate, Regular Rhythm, Normal S1, Normal S2 Abdomen: Bowel Sounds Present, Soft, Non Tender, Non-Distended, No Hepato-splenomegaly Extremities: No edema Skin: No rashes Musculoskeletal: No Tenderness to Palpation of Joints or Extremities Lymphatic: No Cervical, Supraclavicular, or Inguinal Adenopathy Neurological: Cranial nerves II-XII grossly intact, Neuro grossly intact Psych/Mental Status: Normal Affect, Appropriate - Physical Exam Vitals/I&O's: Vital Signs Temp Pulse Resp BP Pulse Ox 98.6 F 81 19 H 114/63 95 11/15/20 08:55 11/15/20 08:55 11/15/20 08:55 11/15/20 08:55 11/15/20 08:55 Oxygen Delivery Method Room Air Weight: 65.4 kg Body Mass Index (BMI) 21.4 Finger Stick Blood Glucose 121 Intake and Output for Last 24 Hours 11/13/20 11/14/20 11/15/20 23:59 23:59 23:59 Intake Total 1416.25 / 1416.25 373.75 / 373.75 Balance 1416.25 / 1416.25 373.75 / 373.75 Laboratory Results 11/14/20 10:21: WBC 10.0, RBC 3.57 L, Hgb 11.2 L, Hct 35.3 L, MCV 98.9 H, MCH 31.4, MCHC 31.7 L, RDW Std Deviation 59.4 H, RDW Coeff of Sinan 16.2 H, Plt Count 195, MPV 9.1, Immature Gran % (Auto) 0.700, Neut % (Auto) 75.9 H, Lymph % (Auto) 14.4 L, Bertie % (Auto) 7.3, Eos % (Auto) 1.3, Baso % (Auto) 0.4, Absolute Neuts (auto) 7.6, Absolute Lymphs (auto) 1.43, Nucleated RBC % 0 11/14/20 10:21: Sodium 141, Potassium 3.4 L, Chloride 105, Carbon Dioxide 30.0, Anion Gap 6, BUN 23 H, Creatinine 1.39 H, Estim Creat Clear Calc 35.70, Est GFR (MDRD) Af Amer 63, Est GFR (MDRD) Non-Af 52 L, BUN/Creatinine Ratio 16.5, Glucose 96, Calcium 9.2, Total Bilirubin 0.40, AST 13 L, ALT 23, Alkaline Phosphatase 239 H, Troponin I 0.051 H, Total Protein 6.6, Albumin 2.6 L, Globulin 4.0, Albumin/Globulin Ratio 0.6 L, TSH 2.47 11/14/20 15:31: Troponin I 0.069 H 11/14/20 16:49: POC Glucose 254 H 11/14/20 18:20: Troponin I 0.061 H 11/14/20 20:50: Troponin I 0.056 H 11/14/20 21:51: POC Glucose 63 L 11/14/20 22:13: POC Glucose 125 H 11/15/20 05:20: WBC 8.1, RBC 3.76 L, Hgb 12.1 L, Hct 39.1 L, MCV 104.0 H D, MCH 32.2 H, MCHC 30.9 L, RDW Std Deviation 61.2 H, RDW Coeff of Sinan 16.5 H, Plt Count 169, MPV 9.2, Immature Gran % (Auto) 0.600, Neut % (Auto) 73.6 H, Lymph % (Auto) 14.9 L, Bertie % (Auto) 8.4, Eos % (Auto) 1.8, Baso % (Auto) 0.7, Absolute Neuts (auto) 6.0, Absolute Lymphs (auto) 1.21, Nucleated RBC % 0 11/15/20 05:20: Sodium 139, Potassium 4.2, Chloride 108 H, Carbon Dioxide 25.0, Anion Gap 6, BUN 21 H, Creatinine 1.29, Estim Creat Clear Calc 38.53, Est GFR (MDRD) Af Amer 68, Est GFR (MDRD) Non-Af 56 L, BUN/Creatinine Ratio 16.3, Glucose 82, Calcium 8.9, Total Bilirubin 0.40, AST 18, ALT 20, Alkaline Phosphatase 238 H, Total Protein 6.1 L, Albumin 2.4 L, Globulin 3.7, Albumin/Globulin Ratio 0.6 L 11/15/20 06:32: POC Glucose 96 Current Medications Acetaminophen (Acetaminophen 325 Mg Tablet) 650 mg PO Q6H PRN PRN PRN Reason: Pain Score 1-10/Temp > 100.7 F Last Admin: 11/15/20 08:42 Dose: 650 mg Documented by: Apixaban (Apixaban 2.5 Mg Tablet) 2.5 mg PO BID [facility] Last Admin: 11/14/20 21:56 Dose: 2.5 mg Documented by: Atorvastatin Calcium (Atorvastatin Calcium 80 Mg Tablet) 80 mg PO QHS [facility] Last Admin: 11/14/20 21:57 Dose: 80 mg Documented by: Dextrose (Dextrose 50%-Water 25 Gm/50 Ml Disp.Syrin) 0 gm IV X1 PRN; Protocol PRN Reason: Hypoglycemia Docusate Sodium (Docusate Sodium 100 Mg Capsule) 100 mg PO TID PRN PRN Reason: Constipation Folic Acid (Folic Acid 1 Mg Tablet) 1 mg PO DAILYCM CLAUDIA Gabapentin (Gabapentin 300 Mg Capsule) 300 mg PO TID [facility] Last Admin: 11/15/20 06:30 Dose: 300 mg Documented by: Glucagon (Glucagon 1 Mg/Ml Syringe) 1 mg IM .X1 PRN PRN Reason: Hypoglycemia Sodium Chloride () 250 mls @ 15 mls/hr IV .[id number] PRN PRN Reason: Saline Flush Sodium Chloride () 250 mls @ 15 mls/hr IV .[id number] PRN PRN Reason: Additional IVPB Infusion Insulin Human Lispro (Insulin Lispro 100 Unit/Ml Insuln.Pen) 0 unit SC ACHS CLAUDIA; Protocol Last Admin: 11/15/20 06:33 Dose: Not Given Documented by: Methadone HCl (Methadone 5 Mg Tablet) 5 mg PO DAILY [facility] Last Admin: 11/15/20 08:43 Dose: 5 mg Documented by: Nutritional Formula (Lactose Free) (Ensure Enlive 120 Ml Liquid) 120 ml PO 4X/DAY [facility] Last Admin: 11/14/20 21:56 Dose: Not Given Documented by: Ondansetron HCl (Ondansetron 4 Mg/2 Ml Vial) 4 mg IV Q8H PRN PRN PRN Reason: NAUSEA/VOMITING Last Admin: 11/14/20 16:14 Dose: 4 mg Documented by: Pantoprazole Sodium (Pantoprazole Sodium 40 Mg Tablet) 40 mg PO DAILY [facility] Prednisone ([facility] 5 Mg [facility]) [facility] Sodium Chloride (0.9% Saline Lock 10 Ml Syringe) 10 - 40 ml IV UD PRN PRN Reason: SALINE FLUSH Last Admin: 11/15/20 08:47 Dose: 10 ml Documented by: Discharge Diet: No Restrictions Discharge Activity: Return to Normal Activity Home Medications: Medications to take at Discharge Metoprolol Tartrate [Lopressor (beta latrell)] 50 mg PO PRN PRN 07/27/14 Pioglitazone [Actos] 30 mg PO DAILY 01/31/16 Esomeprazole Mag Trihydrate [Nexium] 40 mg PO DAILY 04/14/20 Folic Acid 1 mg PO DAILY 04/14/20 Gabapentin [Neurontin] 300 mg PO TID 04/14/20 Rosuvastatin Calcium [Crestor] 40 mg PO DAILY 04/14/20 Apixaban [Eliquis] 2.5 mg PO BID 05/24/20 Prednisone 5 mg PO DAILY 05/24/20 Docusate Sodium 1 tab PO TID PRN 11/14/20 Methadone HCl 5 mg PO Q12H 11/14/20 Potassium Chloride [Klor-Con M20] 20 meq PO DAILY 11/14/20 Primary Care Physician: Jack Schaffer MD [Primary Care Provider] - Please follow up with your Primary Care Physician in: within 1-2 weeks Disposition: Hospice Medical Facility Minutes spent on discharge:: 40 Patient Condition:: Poor Medical Necessity - Tobacco Use Smoking Status: Former smoker Tobacco Use: Non-smoker Meaningful Use Info Meaningful Use Diagnoses (Choose all that apply): None applicable Inpatient E&M: [id number] [facility]
--- NOTE | 2020-11-15 09:22 | CASEMGMT ---
Addendum entered by Francisca Kebede 11/15/20 09:30: LULU received a call from Aggie with Palliative Care. She said she spoke with Dr Cote about admission to the inpatient unit. She notified admissions of this referral. LULU let her know SW faxed information. Francisca CLARK Original Note: Patient's Oncologist spoke with patient and his daughters and they have elected to go Hospice. They would like the inpatient Hospice unit. Patient is active with Palliative Care. Per physician Aggie from Palliative is talking with the Hospice team about getting patient to the inpatient unit. LULU faxed over information. LULU also called Nery at Hospice and let her know information was faxed. Await input from Hospice. Francisca CLARK
--- NOTE | 2020-11-15 09:33 | PHA.DC.MR ---
Pharmacy Service has performed discharge medication reconciliation for this patient. No new medications at time of discharge. Medications reviewed are from previously reported home medications. Home Medications Metoprolol Tartrate [Lopressor (beta latrell)] 50 mg PO PRN PRN 07/27/14 Pioglitazone [Actos] 30 mg PO DAILY 01/31/16 Esomeprazole Mag Trihydrate [Nexium] 40 mg PO DAILY 04/14/20 Folic Acid 1 mg PO DAILY 04/14/20 Gabapentin [Neurontin] 300 mg PO TID 04/14/20 Rosuvastatin Calcium [Crestor] 40 mg PO DAILY 04/14/20 Apixaban [Eliquis] 2.5 mg PO BID 05/24/20 Prednisone 5 mg PO DAILY 05/24/20 Docusate Sodium 1 tab PO TID PRN 11/14/20 Methadone HCl 5 mg PO Q12H 11/14/20 Potassium Chloride [Klor-Con M20] 20 meq PO DAILY 11/14/20 The patient's discharge medication list was reviewed for discrepancies and discrepancies were resolved.
[2020-11-15] MEDS: Pantoprazole Sodium 40 MG Tablet PO (10:05)
[2020-11-15] MEDS: predniSONE 5 MG Tablet PO (10:06)
--- NOTE | 2020-11-15 10:21 | CASEMGMT ---
LULU got a call from [employer] with Hospice. She is going to call the family, but wanted to know which daughter to call. LULU told her Anna is the POA. LULU told her patient is alert and oriented, but very hard of hearing. She will talk with family and their transport and get back with LULU. Francisca DENTON MSW
[2020-11-15 11:30] LABS: Bedside Glucose 88 mg/dL (70-110)
[2020-11-15] MEDS: Ondansetron 4 MG/2 ML Vial IV (11:51)
--- NOTE | 2020-11-15 12:11 | NURSING ---
Report called to [facility] to ERIBERTO Bowman. Per Gracie, leave IV in at time of transfer.
--- NOTE | 2020-11-15 13:05 | CASEMGMT ---
Nery from Hospice came in and spoke with patient and his daughters. They agreed to Hospice at the inpatient Hospice unit. Nery said their transportation would pick him up at 1400. SW notified RN, patient, his daughter, and monorail charger operator. Plan: d/c to [facility]. Hospice utilized their own transport for patient. Francisca DENTON MSW
[2020-11-15 13:35] VITALS: BP 91/55; PULSE 97; RESP 17; TEMP 36.4; O2SAT 93
[2020-11-15] MEDS: Acetaminophen 500 MG Tablet 1000 MG PO (13:55)
== END 2020-11-15 14:08 | disposition hospice, inpatient (51) | DRG 180 ==
LOC: ED 11:55 → PCU 12:11
PROVIDERS: Admitting Provider Internal Medicine; Emergency Provider Emergency Medicine; PCP Family Medicine; Visit Provider Internal Medicine
DX: C34.92 Malignant neoplasm of unspecified part of left bronchus or lung (principal); E43 Unspecified severe protein-calorie malnutrition; C79.51 Secondary malignant neoplasm of bone; R53.81 Other malaise; E87.6 Hypokalemia; G89.4 Chronic pain syndrome; Z87.891 Personal history of nicotine dependence; R79.89 Other specified abnormal findings of blood chemistry; Z86.711 Personal history of pulmonary embolism; Z79.02 Long term (current) use of antithrombotics/antiplatelets; E11.9 Type 2 diabetes mellitus without complications; Z79.84 Long term (current) use of oral hypoglycemic drugs; Z66 Do not resuscitate
CPT/HCPCS: 36415; 70450; 71045; 80053; 82962; 84443; 84484; 85025; 93005; 97162; 97166; 97802; 99251; 99285; J7030; A4216; G0463; J2405